=== PATIENT | female | born 1965 | race Caucasian/White ===

== ENCOUNTER 2018-05-01 21:29 | Emergency (ER) | payer MEDICAID ==
[~2018-05-01] VITALS: Ht 162.6 cm; Wt 88.0 kg
[~2018-05-01 21:29] MED LIST: CLON-528 PO; IBUP-1574 PO; LANS15CA10 PO; ONDA4TAB12 PO; ONDA4TAB6 PO; PHE12.5T PO; POLY255P19 PO; ZOF4T PO
[2018-05-01] MEDS ORDERED: ondansetron 4mg rapidly disintigrating tab PO STA (22:08)
[2018-05-01] MEDS ORDERED: ONDA8TAB6 PO (23:18)
[2018-05-01] MEDS ORDERED: ondansetron 4mg rapidly disintigrating tab PO ONE (23:20)
[2018-05-01 23:27] VITALS: BP 103/60
== END 2018-05-01 23:28 | disposition home or self-care (01) ==
LOC: ER 21:30
DX: K52.9 Noninfective gastroenteritis and colitis, unspecified (principal); G43.909 Migraine, unspecified, not intractable, without status migrainosus; Z90.49 Acquired absence of other specified parts of digestive tract; Z90.710 Acquired absence of both cervix and uterus; Z90.89 Acquired absence of other organs; Z88.0 Allergy status to penicillin; Z88.1 Allergy status to other antibiotic agents; Z88.8 Allergy status to other drugs, medicaments and biological substances; Z79.899 Other long term (current) drug therapy; Z56.0 Unemployment, unspecified
CPT/HCPCS: 99283

== ENCOUNTER → 2018-06-27 | Emergency (ER) | payer MEDICAID ==
[~2018-06-27] VITALS: Ht 162.6 cm; Wt 90.0 kg
[~2018-06-27] MED LIST changes: +CEPH-572 PO; +ONDA8TAB6 PO; +PHEN-716 PO
[2018-06-27 10:28] VITALS: BP 105/66
[2018-06-27 10:46] LABS: ALANINE AMINOTRANSFERASE 29 U/L (12-78); ALBUMIN 3.6 G/DL (3.4-5.0); ALKALINE PHOSPHATASE 73 IU/L (46-116); ANION GAP 5 (8-16); ASPARTATE AMINO TRANSFERASE 15 U/L (10-37); BILIRUBIN,TOTAL 0.5 MG/DL (0.1-1.0); BLOOD UREA NITROGEN 20 MG/DL (7-18); BUN/CREATININE RATIO 25.3 (6.6-38.0); CHLORIDE 103 MMOL/L (99-107); CREATININE 0.79 MG/DL (0.40-0.90); GLUCOSE 87 MG/DL (70-104); POTASSIUM 4.6 MMOL/L (3.5-5.1); SODIUM 136 MMOL/L (135-145); TOTAL CARBON DIOXIDE 27.7 MMOL/L (24-32); TOTAL PROTEIN 7.3 G/DL (6.4-8.2); eGFR 76 ML/MIN
[2018-06-27 10:52] LABS: CLARITY,URINE CLEAR (Clear); COLOR,URINE YELLOW (Yellow); GLUCOSE, URINE NEGATIVE (Neg); KETONES,URINE NEGATIVE (Neg); LEUKOCYTE ESTERASE ,URINE NEGATIVE (Neg); NITRITES, URINE NEGATIVE (Neg); OCCULT BLOOD,URINE TRACE-INTACT (Neg); PH,URINE 5.5 (4.8-8.0); PROTEIN,URINE NEGATIVE (Neg); URINE HCG NEGATIVE (NEG); UROBILINOGEN,URINE 0.2 E.U/dL (0.2-1.0)
[2018-06-27 10:57] LABS: UA COLLECTION TYPE CLN CATCH MIDSTREAM
[2018-06-27 10:58] LABS: BACTERIA,URINE FEW /HPF (Neg); MUCUS STRANDS NONE SEEN /LPF (Neg); RBC,URINE NONE SEEN /HPF (0-2); SQUAMOUS EPITHELIAL CELL,UR MODERATE /LPF (FEW); WBC,URINE NONE SEEN /HPF (0-4)
== END | disposition home or self-care (01) ==
LOC: ER 08:37
DX: R10.30 Lower abdominal pain, unspecified (principal); G43.909 Migraine, unspecified, not intractable, without status migrainosus; Z90.710 Acquired absence of both cervix and uterus; Z98.890 Other specified postprocedural states; Z90.49 Acquired absence of other specified parts of digestive tract; Z56.0 Unemployment, unspecified; Z86.19 Personal history of other infectious and parasitic diseases; Z88.0 Allergy status to penicillin; Z88.1 Allergy status to other antibiotic agents; Z88.5 Allergy status to narcotic agent; Z88.8 Allergy status to other drugs, medicaments and biological substances; Z79.899 Other long term (current) drug therapy
CPT/HCPCS: 36415; 80053; 81001; 81025; 99283

== ENCOUNTER 2018-12-30 19:53 | Emergency (ER) | payer MEDICAID, OTHER ==
[~2018-12-30] VITALS: Ht 162.6 cm; Wt 91.5 kg
[~2018-12-30 19:53] MED LIST changes: -CEPH-572 PO; +CEPH500C5 PO; -PHE12.5T PO; -PHEN-716 PO; +PHEN-786 PO; +PROM12.512 PO
[2018-12-30 20:47] LABS: URINE HCG NEGATIVE (NEG)
[2018-12-30 20:48] LABS: CLARITY,URINE CLEAR (Clear); COLOR,URINE YELLOW (Yellow); GLUCOSE, URINE NEGATIVE (Neg); KETONES,URINE NEGATIVE (Neg); LEUKOCYTE ESTERASE ,URINE NEGATIVE (Neg); NITRITES, URINE NEGATIVE (Neg); OCCULT BLOOD,URINE TRACE-LYSED (Neg); PROTEIN,URINE NEGATIVE (Neg); UROBILINOGEN,URINE 0.2 E.U/dL (0.2-1.0)
[2018-12-30 20:51] LABS: UA COLLECTION TYPE CLN CATCH MIDSTREAM
[2018-12-30 20:54] LABS: BACTERIA,URINE FEW /HPF (Neg); MUCUS STRANDS NONE SEEN /LPF (Neg); RBC,URINE NONE SEEN /HPF (0-2); SQUAMOUS EPITHELIAL CELL,UR FEW /LPF (FEW); WBC,URINE NONE SEEN /HPF (0-4)
--- NOTE | 2018-12-30 20:54 | NUR ---
PT. REFUSED TO HAVE BLOOD DRAWN... PLASMA TABLE OPERATOR STUCK HER FOR BLOOD DRAW AND SHE STARTED YELLING "TAKE IT OUT, TAKE IT OUT, TAKE IT OUT, ". PT. WAS PLACED BACK IN THE LOBBY FROM ROOM 18
[2018-12-30] MEDS ORDERED: pantoprazole 40 MG vial IV ONE (22:40)
[2018-12-30] MEDS ORDERED: ondansetron/PF 4mg/2ml inj IV ONE (22:40)
[2018-12-30 22:55] LABS: BASOPHILS % (AUTO) 0.6 % (0-1); EOSINOPHILS % (AUTO) 0.6 % (0-6); HEMOGLOBIN 12.8 g/dl (12.0-16.0); LYMPHOCYTES # (AUTO) 3.1 X10'3 (1.1-4.8); LYMPHOCYTES % (AUTO) 41.2 % (21-51); MEAN CORPUSCULAR HEMOGLOBIN 30.8 PG (27.0-31.0); MEAN CORPUSCULAR HGB CONC 33.6 g/dL (33.0-36.5); MEAN CORPUSCULAR VOLUME 91.5 FL (78-98); MONOCYTES # (AUTO) 0.7 X10'3 (0-0.9); MONOCYTES % (AUTO) 9.5 % (2-12); NEUTROPHILS # (AUTO) 3.6 X10'3 (1.8-7.7); NEUTROPHILS % (AUTO) 48.1 % (42-75); PLATELET COUNT 272 X10'3 (140-440); RED BLOOD COUNT 4.15 X10'6 (4.20-5.60); RED CELL DISTRIBUTION WIDTH 12.9 % (11.5-14.5); WHITE BLOOD COUNT 7.5 X10'3 (4.5-11.0)
[2018-12-30 23:10] LABS: ALANINE AMINOTRANSFERASE 29 U/L (12-78); ALBUMIN 3.8 G/DL (3.4-5.0); ALKALINE PHOSPHATASE 94 IU/L (46-116); ANION GAP 9 (8-16); ASPARTATE AMINO TRANSFERASE 18 U/L (10-37); BILIRUBIN,TOTAL 0.2 MG/DL (0.1-1.0); BLOOD UREA NITROGEN 13 MG/DL (7-18); BUN/CREATININE RATIO 16.7 (6.6-38.0); CALCIUM 8.9 MG/DL (8.5-10.1); CHLORIDE 107 MMOL/L (99-107); CREATININE 0.78 MG/DL (0.40-0.90); GLUCOSE 105 MG/DL (70-104); LIPASE 84 U/L (73-393); POTASSIUM 4.6 MMOL/L (3.5-5.1); SODIUM 142 MMOL/L (135-145); TOTAL CARBON DIOXIDE 26.3 MMOL/L (24-32); TOTAL PROTEIN 7.6 G/DL (6.4-8.2); eGFR 77 ML/MIN
[2018-12-31 00:27] VITALS: BP 110/70
[2019-01-01] MEDS ORDERED: ONDA8TAB6 PO (12:08)
[2019-01-01] MEDS ORDERED: LORA1TAB PO (12:08)
[2019-01-01] MEDS ORDERED: PANT20TA3 PO (12:08)
== END 2018-12-31 01:54 | disposition home or self-care (01) ==
LOC: ER 19:53
DX: K52.9 Noninfective gastroenteritis and colitis, unspecified (principal); R42 Dizziness and giddiness; G43.909 Migraine, unspecified, not intractable, without status migrainosus; F41.9 Anxiety disorder, unspecified; Z90.49 Acquired absence of other specified parts of digestive tract; Z90.710 Acquired absence of both cervix and uterus; Z90.89 Acquired absence of other organs; Z79.899 Other long term (current) drug therapy; Z88.0 Allergy status to penicillin; Z88.1 Allergy status to other antibiotic agents; Z88.5 Allergy status to narcotic agent; Z56.0 Unemployment, unspecified
CPT/HCPCS: 36415; 80053; 81001; 81025; 83690; 85025; 85610; 96374; 96375; 99283; C9113; J2405

== ENCOUNTER 2019-01-01 09:01 | Emergency (ER) | payer MEDICAID, OTHER ==
[~2019-01-01] VITALS: Ht 162.6 cm; Wt 89.2 kg
[2019-01-01] MEDS ORDERED: ondansetron/PF 4mg/2ml inj IV ONE (09:20)
[2019-01-01] MEDS ORDERED: famotidine/PF 10 mg/ml inj IV ONE (09:20)
[2019-01-01] MEDS ORDERED: normal saline 1000ML IV soln IV ONE (09:20)
[2019-01-01] MEDS ORDERED: LORazepam 2 mg/ml vial IV ONE (09:20)
--- NOTE | 2019-01-01 09:50 | NUR ---
Pt out to CT
[2019-01-01 10:08] LABS: BASOPHILS % (AUTO) 0.6 % (0-1); EOSINOPHILS # (AUTO) 0.1 X10'3 (0-0.9); LYMPHOCYTES # (AUTO) 2.6 X10'3 (1.1-4.8); MEAN PLATELET VOLUME 8.1 FL (7.4-10.4); MONOCYTES # (AUTO) 0.4 X10'3 (0-0.9)
[2019-01-01 10:10] LABS: EOSINOPHILS % (AUTO) 0.8 % (0-6); HEMATOCRIT 42.2 % (35.0-45.0); HEMOGLOBIN 14.5 g/dl (12.0-16.0); LYMPHOCYTES % (AUTO) 39.4 % (21-51); MEAN CORPUSCULAR HEMOGLOBIN 31.3 PG (27.0-31.0); MEAN CORPUSCULAR HGB CONC 34.4 g/dL (33.0-36.5); MONOCYTES % (AUTO) 6.7 % (2-12); NEUTROPHILS # (AUTO) 3.5 X10'3 (1.8-7.7); NEUTROPHILS % (AUTO) 52.5 % (42-75); PLATELET COUNT 256 X10'3 (140-440); RED BLOOD COUNT 4.64 X10'6 (4.20-5.60); RED CELL DISTRIBUTION WIDTH 13.1 % (11.5-14.5); WHITE BLOOD COUNT 6.6 X10'3 (4.5-11.0)
[2019-01-01 10:32] LABS: ALANINE AMINOTRANSFERASE 35 U/L (12-78); ALBUMIN 4.2 G/DL (3.4-5.0); ALBUMIN/GLOBULIN RATIO 0.9 (1.1-1.5); ALKALINE PHOSPHATASE 106 IU/L (46-116); ANION GAP 8 (8-16); ASPARTATE AMINO TRANSFERASE 19 U/L (10-37); BILIRUBIN,TOTAL 0.4 MG/DL (0.1-1.0); BLOOD UREA NITROGEN 13 MG/DL (7-18); BUN/CREATININE RATIO 14.1 (6.6-38.0); CALCIUM 9.4 MG/DL (8.5-10.1); CHLORIDE 104 MMOL/L (99-107); CREATININE 0.92 MG/DL (0.40-0.90); GLUCOSE 103 MG/DL (70-104); POTASSIUM 4.1 MMOL/L (3.5-5.1); SODIUM 141 MMOL/L (135-145); TOTAL CARBON DIOXIDE 29.1 MMOL/L (24-32); TOTAL PROTEIN 8.8 G/DL (6.4-8.2); eGFR 63 ML/MIN
[2019-01-01] MEDS ORDERED: ketorolac trometh. 30mg/ml inj. IV ONE (10:40)
[2019-01-01] MEDS ORDERED: pantoprazole 40 MG vial IV ONE (12:05)
[2019-01-01] MEDS ORDERED: ONDA8TAB6 PO (12:08)
[2019-01-01] MEDS ORDERED: LORA1TAB PO (12:08)
[2019-01-01] MEDS ORDERED: PANT20TA3 PO (12:08)
[2019-01-01 12:37] LABS: CLARITY,URINE CLEAR (Clear); COLOR,URINE YELLOW (Yellow); GLUCOSE, URINE NEGATIVE (Neg); KETONES,URINE NEGATIVE (Neg); LEUKOCYTE ESTERASE ,URINE NEGATIVE (Neg); NITRITES, URINE NEGATIVE (Neg); OCCULT BLOOD,URINE TRACE-LYSED (Neg); PROTEIN,URINE NEGATIVE (Neg); UROBILINOGEN,URINE 0.2 E.U/dL (0.2-1.0)
--- NOTE | 2019-01-01 12:37 | NUR ---
RELIEVING RN FOR LUNCH, PT IS SLEEPING, RESP EVEN AND UNLABORED, SKIN P/W/D, EASILY AROUSEABLE, NS BOLUS INFUSING W/O. MEDICATED PER MD ORDER
[2019-01-01 12:44] LABS: UA COLLECTION TYPE CLN CATCH MIDSTREAM
[2019-01-01 12:50] LABS: WBC,URINE 0-4 /HPF (0-4)
[2019-01-01 12:51] VITALS: BP 125/53
[2019-01-01 12:51] LABS: BACTERIA,URINE FEW /HPF (Neg); RBC,URINE 0-2 /HPF (0-2); SQUAMOUS EPITHELIAL CELL,UR FEW /LPF (FEW)
== END 2019-01-01 12:53 | disposition home or self-care (01) ==
LOC: ER 09:02
DX: R10.10 Upper abdominal pain, unspecified (principal); R11.2 Nausea with vomiting, unspecified; G43.909 Migraine, unspecified, not intractable, without status migrainosus; Z56.0 Unemployment, unspecified; Z90.49 Acquired absence of other specified parts of digestive tract; Z90.710 Acquired absence of both cervix and uterus; Z88.0 Allergy status to penicillin; Z88.3 Allergy status to other anti-infective agents; Z88.5 Allergy status to narcotic agent; Z79.899 Other long term (current) drug therapy
CPT/HCPCS: 36415; 71045; 74176; 80053; 81001; 83605; 83735; 84145; 85025; 87040; 93005; 96361; 96374; 96375; 99284; C9113; J1885; J2060; J2405; J3490; J7030

== ENCOUNTER 2019-01-03 19:56 | Emergency (ER) | payer MEDICAID ==
[~2019-01-03] VITALS: Ht 162.6 cm; Wt 83.1 kg
[~2019-01-03 19:56] MED LIST changes: +LORA1TAB PO; +PANT20TA3 PO
[2019-01-03] MEDS ORDERED: normal saline 1000ML IV soln IVB ONE (23:10)
[2019-01-03] MEDS ORDERED: magnesium citrate 296ml oral solution PO ONE (23:10)
[2019-01-03] MEDS ORDERED: bisacodyl 10mg suppository rectal RC ONE (23:10)
[2019-01-03] MEDS ORDERED: ondansetron/PF 4mg/2ml inj IV ONE (23:10)
[2019-01-03 23:57] LABS: BASOPHILS % (AUTO) 0.4 % (0-1); EOSINOPHILS % (AUTO) 0.6 % (0-6); HEMATOCRIT 40.3 % (35.0-45.0); HEMOGLOBIN 13.5 g/dl (12.0-16.0); LYMPHOCYTES # (AUTO) 3.2 X10'3 (1.1-4.8); LYMPHOCYTES % (AUTO) 39.3 % (21-51); MEAN CORPUSCULAR HEMOGLOBIN 30.3 PG (27.0-31.0); MEAN CORPUSCULAR HGB CONC 33.6 g/dL (33.0-36.5); MEAN CORPUSCULAR VOLUME 90.5 FL (78-98); MEAN PLATELET VOLUME 7.6 FL (7.4-10.4); MONOCYTES # (AUTO) 0.4 X10'3 (0-0.9); MONOCYTES % (AUTO) 5.3 % (2-12); NEUTROPHILS # (AUTO) 4.4 X10'3 (1.8-7.7); NEUTROPHILS % (AUTO) 54.4 % (42-75); PLATELET COUNT 277 X10'3 (140-440); RED BLOOD COUNT 4.46 X10'6 (4.20-5.60); WHITE BLOOD COUNT 8.2 X10'3 (4.5-11.0)
[2019-01-04 00:10] LABS: ALANINE AMINOTRANSFERASE 25 U/L (12-78); ALBUMIN 3.8 G/DL (3.4-5.0); ALBUMIN/GLOBULIN RATIO 0.9 (1.1-1.5); ALKALINE PHOSPHATASE 89 IU/L (46-116); ANION GAP 11 (8-16); ASPARTATE AMINO TRANSFERASE 16 U/L (10-37); BILIRUBIN,TOTAL 0.3 MG/DL (0.1-1.0); BLOOD UREA NITROGEN 13 MG/DL (7-18); BUN/CREATININE RATIO 15.3 (6.6-38.0); CALCIUM 9.9 MG/DL (8.5-10.1); CHLORIDE 104 MMOL/L (99-107); CREATININE 0.85 MG/DL (0.40-0.90); GLUCOSE 98 MG/DL (70-104); LIPASE 89 U/L (73-393); POTASSIUM 4.6 MMOL/L (3.5-5.1); SODIUM 140 MMOL/L (135-145); TOTAL CARBON DIOXIDE 25.5 MMOL/L (24-32); TOTAL PROTEIN 8.1 G/DL (6.4-8.2); eGFR 69 ML/MIN
--- NOTE | 2019-01-04 00:38 | NUR ---
dr ramirez to perform digital exam to check pt stool impaction. poc updated
[2019-01-04 03:35] VITALS: BP 122/68
== END 2019-01-04 02:50 | disposition home or self-care (01) ==
LOC: ER 19:56
DX: K59.00 Constipation, unspecified (principal); R14.0 Abdominal distension (gaseous); R11.2 Nausea with vomiting, unspecified; R42 Dizziness and giddiness; R10.9 Unspecified abdominal pain; G43.909 Migraine, unspecified, not intractable, without status migrainosus; F41.9 Anxiety disorder, unspecified; Z88.0 Allergy status to penicillin; Z88.1 Allergy status to other antibiotic agents; Z88.6 Allergy status to analgesic agent; Z79.899 Other long term (current) drug therapy; Z79.2 Long term (current) use of antibiotics; Z79.1 Long term (current) use of non-steroidal anti-inflammatories (NSAID); Z87.19 Personal history of other diseases of the digestive system; Z87.440 Personal history of urinary (tract) infections; Z90.49 Acquired absence of other specified parts of digestive tract; Z90.710 Acquired absence of both cervix and uterus; Z90.89 Acquired absence of other organs; Z56.0 Unemployment, unspecified; Z86.19 Personal history of other infectious and parasitic diseases
CPT/HCPCS: 36415; 74018; 80053; 83690; 85025; 96361; 96374; 99284; J2405; J7030

== ENCOUNTER 2019-01-11 17:33 | Emergency (ER) | payer MEDICAID, OTHER ==
[~2019-01-11] VITALS: Ht 162.6 cm; Wt 89.1 kg
[2019-01-11 18:49] LABS: BASOPHILS # (AUTO) 0.1 X10'3 (0-0.2); BASOPHILS % (AUTO) 0.7 % (0-1); EOSINOPHILS # (AUTO) 0.1 X10'3 (0-0.9); EOSINOPHILS % (AUTO) 0.9 % (0-6); HEMATOCRIT 40.4 % (35.0-45.0); HEMOGLOBIN 13.7 g/dl (12.0-16.0); LYMPHOCYTES # (AUTO) 3.8 X10'3 (1.1-4.8); LYMPHOCYTES % (AUTO) 39.6 % (21-51); MEAN CORPUSCULAR HEMOGLOBIN 30.7 PG (27.0-31.0); MEAN CORPUSCULAR VOLUME 90.4 FL (78-98); MEAN PLATELET VOLUME 8.1 FL (7.4-10.4); MONOCYTES # (AUTO) 0.6 X10'3 (0-0.9); MONOCYTES % (AUTO) 6.4 % (2-12); NEUTROPHILS # (AUTO) 5.1 X10'3 (1.8-7.7); NEUTROPHILS % (AUTO) 52.4 % (42-75); PLATELET COUNT 325 X10'3 (140-440); RED BLOOD COUNT 4.47 X10'6 (4.20-5.60); WHITE BLOOD COUNT 9.7 X10'3 (4.5-11.0)
[2019-01-11 19:00] LABS: ALANINE AMINOTRANSFERASE 29 U/L (12-78); ALBUMIN 3.9 G/DL (3.4-5.0); ALBUMIN/GLOBULIN RATIO 0.9 (1.1-1.5); ALKALINE PHOSPHATASE 94 IU/L (46-116); ANION GAP 8 (8-16); ASPARTATE AMINO TRANSFERASE 20 U/L (10-37); BILIRUBIN,TOTAL 0.2 MG/DL (0.1-1.0); BLOOD UREA NITROGEN 13 MG/DL (7-18); BUN/CREATININE RATIO 17.1 (6.6-38.0); CALCIUM 9.4 MG/DL (8.5-10.1); CHLORIDE 105 MMOL/L (99-107); CREATININE 0.76 MG/DL (0.40-0.90); GLUCOSE 107 MG/DL (70-104); LIPASE 141 U/L (73-393); POTASSIUM 4.1 MMOL/L (3.5-5.1); SODIUM 139 MMOL/L (135-145); TOTAL CARBON DIOXIDE 26.3 MMOL/L (24-32); TOTAL PROTEIN 8.2 G/DL (6.4-8.2); eGFR 79 ML/MIN
[2019-01-11] MEDS ORDERED: ondansetron 4mg rapidly disintigrating tab PO ONE (19:20)
[2019-01-11 19:36] LABS: URINE HCG NEGATIVE (NEG)
[2019-01-11 19:41] LABS: CLARITY,URINE CLEAR (Clear); COLOR,URINE YELLOW (Yellow); GLUCOSE, URINE NEGATIVE (Neg); KETONES,URINE NEGATIVE (Neg); LEUKOCYTE ESTERASE ,URINE NEGATIVE (Neg); NITRITES, URINE NEGATIVE (Neg); OCCULT BLOOD,URINE TRACE-INTACT (Neg); PROTEIN,URINE NEGATIVE (Neg); UROBILINOGEN,URINE 0.2 E.U/dL (0.2-1.0)
[2019-01-11 19:48] LABS: UA COLLECTION TYPE CLN CATCH MIDSTREAM
[2019-01-11 19:49] LABS: RBC,URINE 0-2 /HPF (0-2); SQUAMOUS EPITHELIAL CELL,UR FEW /LPF (FEW); WBC,URINE 0-4 /HPF (0-4)
[2019-01-11 19:50] LABS: BACTERIA,URINE FEW /HPF (Neg)
[2019-01-11] MEDS ORDERED: ondansetron/PF 4mg/2ml inj IV ONE (20:10)
[2019-01-11] MEDS ORDERED: normal saline 1000ML IV soln IVB ONE (20:10)
[2019-01-11] MEDS: diatr meglu/diatrizoate 30ml oral sol.-(3 dose) bottle PO SCH ×3 (20:46→21:56)
[2019-01-11 20:48] VITALS: BP 115/78
--- NOTE | 2019-01-11 21:10 | NUR ---
Break RN; Checked on patient, warm blanket provided. No other needs at this time.
[2019-01-11] MEDS ORDERED: iohexol 300mg/ml 100ml inj. ONE (21:46)
[2019-01-11] MEDS ORDERED: ONDA4TAB6 PO (23:25)
== END 2019-01-11 23:45 | disposition home or self-care (01) ==
LOC: ER 17:34
DX: N83.202 Unspecified ovarian cyst, left side (principal); R11.2 Nausea with vomiting, unspecified; G43.909 Migraine, unspecified, not intractable, without status migrainosus; F41.9 Anxiety disorder, unspecified; Z90.49 Acquired absence of other specified parts of digestive tract; Z90.710 Acquired absence of both cervix and uterus; Z98.890 Other specified postprocedural states; Z56.0 Unemployment, unspecified; Z88.0 Allergy status to penicillin; Z88.1 Allergy status to other antibiotic agents; Z88.8 Allergy status to other drugs, medicaments and biological substances; Z79.2 Long term (current) use of antibiotics; Z79.899 Other long term (current) drug therapy
CPT/HCPCS: 36415; 74177; 80053; 81001; 81025; 83605; 83690; 85025; 85610; 96360; 96361; 99284; J2405; J7030; Q9963; Q9967

== ENCOUNTER 2019-01-14 11:01 | Emergency (ER) | payer MEDICAID, OTHER ==
[~2019-01-14] VITALS: Ht 167.6 cm; Wt 89.0 kg
[2019-01-14] MEDS ORDERED: mag hydrox/Alum hydrox/simeth 30ml oral suspension PO ONE (12:20)
[2019-01-14] MEDS ORDERED: sucralfate 1gm/10ml UD suspension PO ONE (12:20)
[2019-01-14] MEDS: famotidine 20mg tablet PO ONE ×2 (12:41→12:44)
--- NOTE | 2019-01-14 12:45 | NUR ---
ATTEMPTED TO START IV WITHOUT SUCCESS. MEDS ARE ORDERED ORALLY. LAB DRAW PERFORMED PER ENVIRONMENTAL COMMUNICATIONS SPECIALIST. DR. TOLBERT NOTIFIED OF DIFFICULTY WITH UNSUCCESSFUL IV START.
[2019-01-14 12:48] VITALS: BP 107/75
[2019-01-14 12:53] LABS: BASOPHILS % (AUTO) 0.4 % (0-1); EOSINOPHILS % (AUTO) 0.4 % (0-6); HEMATOCRIT 39.7 % (35.0-45.0); HEMOGLOBIN 13.3 g/dl (12.0-16.0); LYMPHOCYTES # (AUTO) 2.6 X10'3 (1.1-4.8); LYMPHOCYTES % (AUTO) 28.1 % (21-51); MEAN CORPUSCULAR HEMOGLOBIN 30.5 PG (27.0-31.0); MEAN CORPUSCULAR HGB CONC 33.6 g/dL (33.0-36.5); MEAN CORPUSCULAR VOLUME 90.9 FL (78-98); MEAN PLATELET VOLUME 7.8 FL (7.4-10.4); MONOCYTES # (AUTO) 0.5 X10'3 (0-0.9); NEUTROPHILS # (AUTO) 6.1 X10'3 (1.8-7.7); NEUTROPHILS % (AUTO) 66.1 % (42-75); PLATELET COUNT 324 X10'3 (140-440); RED BLOOD COUNT 4.36 X10'6 (4.20-5.60); RED CELL DISTRIBUTION WIDTH 13.2 % (11.5-14.5); WHITE BLOOD COUNT 9.3 X10'3 (4.5-11.0)
[2019-01-14 13:08] LABS: ALANINE AMINOTRANSFERASE 25 U/L (12-78); ALBUMIN 3.8 G/DL (3.4-5.0); ALBUMIN/GLOBULIN RATIO 0.9 (1.1-1.5); ALKALINE PHOSPHATASE 96 IU/L (46-116); ANION GAP 9 (8-16); ASPARTATE AMINO TRANSFERASE 14 U/L (10-37); BILIRUBIN,TOTAL 0.3 MG/DL (0.1-1.0); BLOOD UREA NITROGEN 12 MG/DL (7-18); BUN/CREATININE RATIO 13.8 (6.6-38.0); CALCIUM 9.6 MG/DL (8.5-10.1); CHLORIDE 106 MMOL/L (99-107); CREATININE 0.87 MG/DL (0.40-0.90); GLUCOSE 102 MG/DL (70-104); LIPASE 91 U/L (73-393); POTASSIUM 4.5 MMOL/L (3.5-5.1); SODIUM 141 MMOL/L (135-145); TOTAL CARBON DIOXIDE 26.3 MMOL/L (24-32); TOTAL PROTEIN 8.1 G/DL (6.4-8.2); eGFR 68 ML/MIN
[2019-01-14] MEDS ORDERED: SUCR1TAB34 PO (13:32)
[2019-01-14] MEDS ORDERED: NO HOME MEDS (23:47)
[2019-01-15] MEDS ORDERED: PANT-47 PO (10:40)
== END 2019-01-14 13:42 | disposition home or self-care (01) ==
LOC: ER 11:02
DX: G89.29 Other chronic pain (principal); R10.13 Epigastric pain; G43.909 Migraine, unspecified, not intractable, without status migrainosus; F41.9 Anxiety disorder, unspecified; Z87.442 Personal history of urinary calculi; Z90.49 Acquired absence of other specified parts of digestive tract; Z90.710 Acquired absence of both cervix and uterus; Z98.890 Other specified postprocedural states; Z56.0 Unemployment, unspecified; Z88.2 Allergy status to sulfonamides; Z88.1 Allergy status to other antibiotic agents; Z88.8 Allergy status to other drugs, medicaments and biological substances; Z79.2 Long term (current) use of antibiotics; Z79.899 Other long term (current) drug therapy
CPT/HCPCS: 36415; 76700; 80053; 83690; 85025; 99284

== ENCOUNTER 2019-01-14 18:45 | Observation (INO) | payer MEDICAID, OTHER ==
[~2019-01-14] VITALS: Ht 162.6 cm; Wt 89.1 kg
[~2019-01-14 18:45] MED LIST changes: +SUCR1TAB34 PO
[2019-01-14 19:55] LABS: CLARITY,URINE CLEAR (Clear); COLOR,URINE YELLOW (Yellow); GLUCOSE, URINE NEGATIVE (Neg); KETONES,URINE NEGATIVE (Neg); LEUKOCYTE ESTERASE ,URINE NEGATIVE (Neg); NITRITES, URINE NEGATIVE (Neg); OCCULT BLOOD,URINE NEGATIVE (Neg); PH,URINE 6.5 (4.8-8.0); PROTEIN,URINE NEGATIVE (Neg); UROBILINOGEN,URINE 0.2 E.U/dL (0.2-1.0)
[2019-01-14 19:56] LABS: URINE HCG NEGATIVE (NEG)
[2019-01-14 19:57] LABS: UA COLLECTION TYPE CLN CATCH MIDSTREAM
[2019-01-14] MEDS ORDERED: normal saline 1000ML IV soln IVB ONE (20:05)
[2019-01-14] MEDS ORDERED: LORazepam 2 mg/ml vial IV ONE ×3 (20:05→22:50)
[2019-01-14] MEDS ORDERED: proCHLORperazine 10 MG/2 ml inj IV ONE (20:05)
--- NOTE | 2019-01-14 20:15 | NUR ---
Ativan 0.5mg order drawn up with balance wasted w/ Cherelle rn. Pt refused ordered dose which was non-administered and wasted in room. Pt also refused compazine which was returned to [facility]. A duplicate ativan order was non-administered as well. Primary RN Cherelle aware.
--- NOTE | 2019-01-14 20:15 | NUR ---
pt refused lab draw. pt refused me from starting iv went to charge nurse jorge who said she will attmept her start if pt allows
[2019-01-14] MEDS ORDERED: haloperidol lactate 5mg/ml inj IM ONE (20:20)
--- NOTE | 2019-01-14 20:22 | NUR ---
pt wanted im haldol to the right buttock vs the right deltoid . pt given haldol 5mg im to right buttock.
--- NOTE | 2019-01-14 20:30 | NUR ---
pt refused compazine for nausea . asked for zofran to treat . pt also states that she is hypersensitive to aall medication and prefers half doses
--- NOTE | 2019-01-14 21:24 | NUR ---
ativan pulled and wasted, then give to primary samuel dwyer for administration. pt refused ativan, o.5mg which was then wasted and witnessed with reymundo rn. pt also refusing compazine indicating "zofran works better." Seeking antiemetic change with [facility] yanet now. primary rn reymundo aware of medication administration status.
[2019-01-14] MEDS ORDERED: pantoprazole 40 MG vial IV ONE (21:25)
[2019-01-14] MEDS ORDERED: mag hydrox/Alum hydrox/simeth 30ml oral suspension PO PRN (21:25)
[2019-01-14] MEDS ORDERED: ondansetron/PF 4mg/2ml inj IV PRN (21:25)
[2019-01-14] MEDS ORDERED: metoclopramide 5 mg/ml inj IV PRN (21:25)
[2019-01-14] MEDS ORDERED: magnesium hydroxide 30ml (MOM) UD suspension PO PRN (21:25)
[2019-01-14] MEDS ORDERED: acetaminophen 325mg tablet PO PRN ×2 (21:25)
[2019-01-14 21:26] LABS: BASOPHILS % (AUTO) 0.4 % (0-1); EOSINOPHILS # (AUTO) 0.1 X10'3 (0-0.9); EOSINOPHILS % (AUTO) 0.6 % (0-6); HEMOGLOBIN 14.2 g/dl (12.0-16.0); LYMPHOCYTES # (AUTO) 3.2 X10'3 (1.1-4.8); LYMPHOCYTES % (AUTO) 31.8 % (21-51); MEAN CORPUSCULAR HEMOGLOBIN 30.5 PG (27.0-31.0); MEAN CORPUSCULAR HGB CONC 33.8 g/dL (33.0-36.5); MEAN CORPUSCULAR VOLUME 90.2 FL (78-98); MEAN PLATELET VOLUME 8.2 FL (7.4-10.4); MONOCYTES # (AUTO) 0.6 X10'3 (0-0.9); MONOCYTES % (AUTO) 5.8 % (2-12); NEUTROPHILS # (AUTO) 6.2 X10'3 (1.8-7.7); NEUTROPHILS % (AUTO) 61.4 % (42-75); PLATELET COUNT 350 X10'3 (140-440); RED BLOOD COUNT 4.65 X10'6 (4.20-5.60); WHITE BLOOD COUNT 10.2 X10'3 (4.5-11.0)
--- NOTE | 2019-01-14 21:27 | NUR ---
New order for Zofran obtained from [facility] y[facility].
[2019-01-14] MEDS ORDERED: ondansetron/PF 4mg/2ml inj IV ONE (21:30)
[2019-01-14 21:31] LABS: ALANINE AMINOTRANSFERASE 28 U/L (12-78); ALBUMIN 4.2 G/DL (3.4-5.0); ALKALINE PHOSPHATASE 102 IU/L (46-116); ANION GAP 8 (8-16); ASPARTATE AMINO TRANSFERASE 15 U/L (10-37); BILIRUBIN,TOTAL 0.3 MG/DL (0.1-1.0); BLOOD UREA NITROGEN 15 MG/DL (7-18); BUN/CREATININE RATIO 15.5 (6.6-38.0); CALCIUM 9.8 MG/DL (8.5-10.1); CHLORIDE 105 MMOL/L (99-107); CREATININE 0.97 MG/DL (0.40-0.90); GLUCOSE 95 MG/DL (70-104); LIPASE 111 U/L (73-393); POTASSIUM 4.5 MMOL/L (3.5-5.1); SODIUM 141 MMOL/L (135-145); TOTAL PROTEIN 8.6 G/DL (6.4-8.2); eGFR 60 ML/MIN
--- NOTE | 2019-01-14 21:49 | NUR ---
pt up out of bed to bathroom
[2019-01-14] MEDS: normal saline 1000ml 1,000 ML IV SCH (22:10)
[2019-01-14] MEDS ORDERED: NO HOME MEDS (23:47)
[2019-01-15] VITALS (7 sets, daily range): BP systolic 96–123; BP diastolic 49–72
--- NOTE | 2019-01-15 06:20 | NUR ---
Patient in room ORTHO 4009. I have received report from Tiera Adamson and had the opportunity to ask questions and assume patient care.
--- NOTE | 2019-01-15 06:24 | NUR ---
Problems reprioritized. Patient report given, questions answered & plan of care reviewed with HOLLY Sharma.
[2019-01-15 06:40] LABS: BASOPHILS # (AUTO) 0.1 X10'3 (0-0.2); BASOPHILS % (AUTO) 0.8 % (0-1); EOSINOPHILS # (AUTO) 0.1 X10'3 (0-0.9); EOSINOPHILS % (AUTO) 0.6 % (0-6); HEMATOCRIT 38.9 % (35.0-45.0); HEMOGLOBIN 13.1 g/dl (12.0-16.0); LYMPHOCYTES # (AUTO) 3.2 X10'3 (1.1-4.8); LYMPHOCYTES % (AUTO) 40.4 % (21-51); MEAN CORPUSCULAR HEMOGLOBIN 30.8 PG (27.0-31.0); MEAN CORPUSCULAR HGB CONC 33.8 g/dL (33.0-36.5); MEAN PLATELET VOLUME 7.9 FL (7.4-10.4); MONOCYTES # (AUTO) 0.5 X10'3 (0-0.9); MONOCYTES % (AUTO) 5.9 % (2-12); NEUTROPHILS # (AUTO) 4.1 X10'3 (1.8-7.7); NEUTROPHILS % (AUTO) 52.3 % (42-75); PLATELET COUNT 300 X10'3 (140-440); RED BLOOD COUNT 4.27 X10'6 (4.20-5.60); RED CELL DISTRIBUTION WIDTH 13.2 % (11.5-14.5); WHITE BLOOD COUNT 7.8 X10'3 (4.5-11.0)
[2019-01-15 06:49] LABS: ALBUMIN 3.4 G/DL (3.4-5.0); ANION GAP 6 (8-16); BLOOD UREA NITROGEN 11 MG/DL (7-18); BUN/CREATININE RATIO 14.3 (6.6-38.0); CALCIUM 8.8 MG/DL (8.5-10.1); CHLORIDE 107 MMOL/L (99-107); CREATININE 0.77 MG/DL (0.40-0.90); GLUCOSE 91 MG/DL (70-104); POTASSIUM 4.3 MMOL/L (3.5-5.1); SODIUM 140 MMOL/L (135-145); TOTAL CARBON DIOXIDE 27.2 MMOL/L (24-32); eGFR 78 ML/MIN
[2019-01-15] MEDS ORDERED: fentaNYL/PF 50MCG/1 ML 2ML syringe ONE ×2 (08:44)
[2019-01-15] MEDS ORDERED: LIDOcaine Viscous 15ml cup ONE (08:45)
[2019-01-15] MEDS ORDERED: MIDAZolam 5mg/5ml vial ONE (08:45)
--- NOTE | 2019-01-15 09:40 | NUR ---
BACK FROM GI LAB, RECEIVED REPORT FROM KIRK BARRERA . PATIENT RESTING COMFORTABLY.
[2019-01-15] MEDS: normal saline 1000ml 1,000 ML IV SCH (10:01)
[2019-01-15] MEDS ORDERED: PANT-47 PO (10:40)
--- NOTE | 2019-01-15 13:18 | NUR ---
Reviewed discharge instructions with pt. Pt verbalized understanding. Pt is alert, oriented and does not have c/o pain at this time. All of pt's belongings were returned to pt. Rx was called in to [facility] in [facility]. Pt walked downstairs, accompanied by her daughter who will drive her home.
== END 2019-01-15 13:10 | disposition home or self-care (01) ==
LOC: ER 18:45 → ED HOLD 22:24 → ORTHO 4S 23:45
PROVIDERS: ADMIT Hospitalist; ATTEND Family Medicine
DX: K44.9 Diaphragmatic hernia without obstruction or gangrene (principal); K21.0 Gastro-esophageal reflux disease with esophagitis; K29.70 Gastritis, unspecified, without bleeding; R11.2 Nausea with vomiting, unspecified; G43.909 Migraine, unspecified, not intractable, without status migrainosus; F41.9 Anxiety disorder, unspecified; Z87.891 Personal history of nicotine dependence; Z87.442 Personal history of urinary calculi; Z87.11 Personal history of peptic ulcer disease; Z90.49 Acquired absence of other specified parts of digestive tract; Z90.710 Acquired absence of both cervix and uterus
CPT/HCPCS: 36415; 43239; 80048; 80053; 81003; 81025; 83690; 85025; 85610; 87081; 96361; 96374; 96375; 96376; 99284; C9113; G0378; J0780; J1630; J2060; J2250; J2405; J3010; J7030; J7040; 99152; A4620

== ENCOUNTER 2019-01-19 18:47 | Emergency (ER) | payer MEDICAID, OTHER ==
[~2019-01-19] VITALS: Ht 162.6 cm; Wt 90.0 kg
[~2019-01-19 18:47] MED LIST changes: -CEPH500C5 PO; -CLON-528 PO; -IBUP-1574 PO; -LANS15CA10 PO; -LORA1TAB PO; -ONDA4TAB12 PO; -ONDA4TAB6 PO; -ONDA8TAB6 PO; +PANT-47 PO; -PANT20TA3 PO; -PHEN-786 PO; -POLY255P19 PO; -PROM12.512 PO; -SUCR1TAB34 PO; -ZOF4T PO
[2019-01-19 19:29] LABS: BASOPHILS # (AUTO) 0.1 X10'3 (0-0.2); BASOPHILS % (AUTO) 0.9 % (0-1); EOSINOPHILS # (AUTO) 0.1 X10'3 (0-0.9); EOSINOPHILS % (AUTO) 0.7 % (0-6); HEMATOCRIT 38.3 % (35.0-45.0); HEMOGLOBIN 12.9 g/dl (12.0-16.0); MONOCYTES # (AUTO) 0.8 X10'3 (0-0.9); NEUTROPHILS # (AUTO) 6.7 X10'3 (1.8-7.7)
[2019-01-19 19:34] LABS: LYMPHOCYTES # (AUTO) 3.5 X10'3 (1.1-4.8); LYMPHOCYTES % (AUTO) 31.3 % (21-51); MEAN CORPUSCULAR HEMOGLOBIN 30.6 PG (27.0-31.0); MEAN CORPUSCULAR HGB CONC 33.7 g/dL (33.0-36.5); NEUTROPHILS % (AUTO) 60.1 % (42-75); RED BLOOD COUNT 4.21 X10'6 (4.20-5.60); RED CELL DISTRIBUTION WIDTH 13.3 % (11.5-14.5); WHITE BLOOD COUNT 11.2 X10'3 (4.5-11.0)
[2019-01-19] MEDS ORDERED: metoclopramide 5 mg/ml inj IV ONE (19:40)
[2019-01-19] MEDS ORDERED: normal saline 1000ML IV soln IVB ONE (19:40)
[2019-01-19] MEDS ORDERED: ondansetron/PF 4mg/2ml inj IV ONE (19:40)
[2019-01-19] MEDS ORDERED: pantoprazole 40 MG vial IV ONE (19:40)
[2019-01-19 19:42] LABS: ALANINE AMINOTRANSFERASE 26 U/L (12-78); ALBUMIN 3.6 G/DL (3.4-5.0); ALBUMIN/GLOBULIN RATIO 0.9 (1.1-1.5); ALKALINE PHOSPHATASE 90 IU/L (46-116); ANION GAP 9 (8-16); ASPARTATE AMINO TRANSFERASE 18 U/L (10-37); BILIRUBIN,TOTAL 0.3 MG/DL (0.1-1.0); BLOOD UREA NITROGEN 10 MG/DL (7-18); BUN/CREATININE RATIO 12.5 (6.6-38.0); CALCIUM 8.8 MG/DL (8.5-10.1); CHLORIDE 107 MMOL/L (99-107); GLUCOSE 98 MG/DL (70-104); POTASSIUM 4.2 MMOL/L (3.5-5.1); SODIUM 142 MMOL/L (135-145); TOTAL CARBON DIOXIDE 25.8 MMOL/L (24-32); TOTAL PROTEIN 7.7 G/DL (6.4-8.2); eGFR 74 ML/MIN
[2019-01-19 19:51] LABS: LIPASE 86 U/L (73-393)
[2019-01-19 19:57] LABS: CLARITY,URINE CLEAR (Clear); COLOR,URINE STRAW (Yellow); GLUCOSE, URINE NEGATIVE (Neg); KETONES,URINE NEGATIVE (Neg); LEUKOCYTE ESTERASE ,URINE NEGATIVE (Neg); NITRITES, URINE NEGATIVE (Neg); OCCULT BLOOD,URINE NEGATIVE (Neg); PROTEIN,URINE NEGATIVE (Neg); UROBILINOGEN,URINE 0.2 E.U/dL (0.2-1.0)
[2019-01-19 19:58] LABS: URINE HCG NEGATIVE (NEG)
[2019-01-19 20:06] LABS: UA COLLECTION TYPE CLN CATCH MIDSTREAM
[2019-01-19 20:34] LABS: MEAN PLATELET VOLUME 8.3 FL (7.4-10.4)
[2019-01-19 20:39] LABS: PLATELET COUNT 251 X10'3 (140-440)
--- NOTE | 2019-01-19 21:47 | NUR ---
pt went to bathroom to urinate ,back in bed,iv line connected back ,ptgetting iv fluid as per md orders.warm blanket provided to the pt and family member at bedside.
[2019-01-19 22:10] VITALS: BP 128/76
[2019-01-19 22:30] LABS: URINE AMPHETAMINE SCREEN NEGATIVE (Neg); URINE BARBITUATE SCREEN NEGATIVE (Neg); URINE BENZODIAZEPINES SCREEN NEGATIVE (Neg); URINE CANNABINOID SCREEN NEGATIVE (Neg); URINE COCAINE SCREEN NEGATIVE (Neg); URINE METHADONE SCREEN NEGATIVE (Neg); URINE OPIATE SCREEN NEGATIVE (Neg); URINE PHENCYCLIDINE SCREEN NEGATIVE (Neg)
== END 2019-01-19 22:10 | disposition home or self-care (01) ==
LOC: ER 18:47
DX: R19.7 Diarrhea, unspecified (principal); G89.29 Other chronic pain; R10.84 Generalized abdominal pain; G43.909 Migraine, unspecified, not intractable, without status migrainosus; Z56.0 Unemployment, unspecified; Z90.49 Acquired absence of other specified parts of digestive tract; Z98.890 Other specified postprocedural states; Z90.710 Acquired absence of both cervix and uterus; Z88.0 Allergy status to penicillin; Z88.8 Allergy status to other drugs, medicaments and biological substances; Z88.1 Allergy status to other antibiotic agents; Z79.899 Other long term (current) drug therapy
CPT/HCPCS: 36415; 80053; 80305; 81003; 81025; 83690; 85025; 96361; 96374; 96375; 99284; C9113; J2405; J2765; J7030

== ENCOUNTER 2019-01-30 19:31 | Emergency (ER) | payer MEDICAID, OTHER ==
[~2019-01-30] VITALS: Ht 162.6 cm; Wt 90.7 kg
[2019-01-30 20:51] LABS: CLARITY,URINE CLEAR (Clear); COLOR,URINE YELLOW (Yellow); GLUCOSE, URINE NEGATIVE (Neg); KETONES,URINE NEGATIVE (Neg); LEUKOCYTE ESTERASE ,URINE NEGATIVE (Neg); NITRITES, URINE NEGATIVE (Neg); OCCULT BLOOD,URINE NEGATIVE (Neg); PROTEIN,URINE NEGATIVE (Neg); UROBILINOGEN,URINE 0.2 E.U/dL (0.2-1.0)
[2019-01-30 20:53] LABS: BASOPHILS # (AUTO) 0.1 X10'3 (0-0.2); BASOPHILS % (AUTO) 0.6 % (0-1); EOSINOPHILS # (AUTO) 0.1 X10'3 (0-0.9); EOSINOPHILS % (AUTO) 1.1 % (0-6); HEMATOCRIT 40.4 % (35.0-45.0); HEMOGLOBIN 13.8 g/dl (12.0-16.0); LYMPHOCYTES # (AUTO) 3.6 X10'3 (1.1-4.8); LYMPHOCYTES % (AUTO) 38.5 % (21-51); MEAN CORPUSCULAR HEMOGLOBIN 30.8 PG (27.0-31.0); MEAN CORPUSCULAR HGB CONC 34.2 g/dL (33.0-36.5); MEAN CORPUSCULAR VOLUME 89.9 FL (78-98); MEAN PLATELET VOLUME 7.8 FL (7.4-10.4); MONOCYTES # (AUTO) 0.6 X10'3 (0-0.9); MONOCYTES % (AUTO) 6.5 % (2-12); NEUTROPHILS % (AUTO) 53.3 % (42-75); PLATELET COUNT 305 X10'3 (140-440); RED CELL DISTRIBUTION WIDTH 12.9 % (11.5-14.5); WHITE BLOOD COUNT 9.4 X10'3 (4.5-11.0)
[2019-01-30 20:54] LABS: UA COLLECTION TYPE CLN CATCH MIDSTREAM
[2019-01-30 21:03] LABS: ALANINE AMINOTRANSFERASE 32 U/L (12-78); ALKALINE PHOSPHATASE 104 IU/L (46-116); ANION GAP 8 (8-16); ASPARTATE AMINO TRANSFERASE 16 U/L (10-37); BILIRUBIN,TOTAL 0.3 MG/DL (0.1-1.0); BLOOD UREA NITROGEN 15 MG/DL (7-18); BUN/CREATININE RATIO 18.3 (6.6-38.0); CALCIUM 9.7 MG/DL (8.5-10.1); CHLORIDE 104 MMOL/L (99-107); CREATININE 0.82 MG/DL (0.40-0.90); GLUCOSE 101 MG/DL (70-104); LIPASE 97 U/L (73-393); POTASSIUM 4.4 MMOL/L (3.5-5.1); SODIUM 140 MMOL/L (135-145); TOTAL CARBON DIOXIDE 28.3 MMOL/L (24-32); TOTAL PROTEIN 8.1 G/DL (6.4-8.2); eGFR 72 ML/MIN
--- NOTE | 2019-01-30 22:15 | NUR ---
VERIFIED MORPHINE DOSAGE WITH MARYJANE. MARYJANE SCHAFFER CHANGED DOSAGE TO 4MG IM INSTEAD OF 10MG IM. DOSE CHANGED ORDERED PER MD WESLEY
[2019-01-30] MEDS ORDERED: ketorolac trometh inj. 60 MG/2 ML VIAL IM ONE (22:20)
[2019-01-30] MEDS ORDERED: mag hydrox/Alum hydrox/simeth 30ml oral suspension PO ONE (22:20)
[2019-01-30] MEDS ORDERED: LIDOcaine Viscous 15ml cup MM ONE (22:20)
[2019-01-30] MEDS ORDERED: morphine 4 MG/ML inj SYRINge IM ONE ×2 (22:20→22:40)
[2019-01-30] MEDS ORDERED: ondansetron/PF 4mg/2ml inj IV ONE (22:55)
--- NOTE | 2019-01-30 23:12 | NUR ---
INFORMED MARYJANE COSTA ORDER WAS FOR WRONG PT. RECIEVED VERBAL ORDER TO CANCEL THIS INCORRECT ORDER ON THIS PT.
[2019-01-30 23:15] VITALS: BP 137/87
== END 2019-01-30 22:51 | disposition home or self-care (01) ==
LOC: ER 19:33
DX: K44.9 Diaphragmatic hernia without obstruction or gangrene (principal); J02.9 Acute pharyngitis, unspecified; J39.2 Other diseases of pharynx; R11.2 Nausea with vomiting, unspecified; G43.909 Migraine, unspecified, not intractable, without status migrainosus; F41.9 Anxiety disorder, unspecified; Z87.19 Personal history of other diseases of the digestive system; Z87.442 Personal history of urinary calculi; Z87.440 Personal history of urinary (tract) infections; Z88.0 Allergy status to penicillin; Z88.1 Allergy status to other antibiotic agents; Z88.6 Allergy status to analgesic agent; Z88.8 Allergy status to other drugs, medicaments and biological substances; Z79.899 Other long term (current) drug therapy; Z90.49 Acquired absence of other specified parts of digestive tract; Z90.710 Acquired absence of both cervix and uterus; Z90.89 Acquired absence of other organs; Z56.0 Unemployment, unspecified
CPT/HCPCS: 36415; 80053; 81003; 83690; 85025; 96372; 99283; J1885; J2270; J2405

== ENCOUNTER 2019-02-02 07:00 | Emergency (ER) | payer OTHER ==
[~2019-02-02] VITALS: Ht 162.6 cm; Wt 89.5 kg
[2019-02-02 07:05] VITALS: BP 113/65
[2019-02-02 07:52] LABS: BASOPHILS % (AUTO) 0.5 % (0-1); EOSINOPHILS # (AUTO) 0.1 X10'3 (0-0.9); EOSINOPHILS % (AUTO) 1.2 % (0-6); HEMATOCRIT 38.7 % (35.0-45.0); HEMOGLOBIN 13.1 g/dl (12.0-16.0); LYMPHOCYTES # (AUTO) 2.5 X10'3 (1.1-4.8); LYMPHOCYTES % (AUTO) 38.9 % (21-51); MEAN CORPUSCULAR HEMOGLOBIN 30.7 PG (27.0-31.0); MEAN CORPUSCULAR HGB CONC 33.9 g/dL (33.0-36.5); MEAN CORPUSCULAR VOLUME 90.5 FL (78-98); MEAN PLATELET VOLUME 7.8 FL (7.4-10.4); MONOCYTES # (AUTO) 0.4 X10'3 (0-0.9); MONOCYTES % (AUTO) 6.1 % (2-12); NEUTROPHILS # (AUTO) 3.5 X10'3 (1.8-7.7); NEUTROPHILS % (AUTO) 53.3 % (42-75); PLATELET COUNT 286 X10'3 (140-440); RED BLOOD COUNT 4.28 X10'6 (4.20-5.60); WHITE BLOOD COUNT 6.5 X10'3 (4.5-11.0)
[2019-02-02 07:55] LABS: URINE HCG NEGATIVE (NEG)
[2019-02-02] MEDS ORDERED: diphenhydrAMINE 50 mg/ml inj IV ONE (07:55)
[2019-02-02] MEDS ORDERED: normal saline 1000ML IV soln IVB ONE (07:55)
[2019-02-02] MEDS ORDERED: morphine 4 MG/ML inj SYRINge IV PRN (07:55)
[2019-02-02] MEDS ORDERED: haloperidol lactate 5mg/ml inj IM ONE (07:55)
[2019-02-02 07:56] LABS: CLARITY,URINE SLIGHTLY CLOUDY (Clear); COLOR,URINE YELLOW (Yellow); GLUCOSE, URINE NEGATIVE (Neg); KETONES,URINE NEGATIVE (Neg); LEUKOCYTE ESTERASE ,URINE NEGATIVE (Neg); NITRITES, URINE NEGATIVE (Neg); OCCULT BLOOD,URINE NEGATIVE (Neg); PH,URINE 6.5 (4.8-8.0); PROTEIN,URINE NEGATIVE (Neg); UROBILINOGEN,URINE 0.2 E.U/dL (0.2-1.0)
[2019-02-02 07:57] LABS: UA COLLECTION TYPE CLN CATCH MIDSTREAM
[2019-02-02 08:05] LABS: SQUAMOUS EPITHELIAL CELL,UR MANY /LPF (FEW)
[2019-02-02 08:07] LABS: BACTERIA,URINE 1+ /HPF (Neg); RBC,URINE 0-2 /HPF (0-2); WBC,URINE 0-4 /HPF (0-4); YEAST FEW /HPF (NEGATIVE)
[2019-02-02] MEDS ORDERED: ondansetron/PF 4mg/2ml inj IV ONE (08:15)
[2019-02-02 08:17] LABS: ALANINE AMINOTRANSFERASE 37 U/L (12-78); ALBUMIN 3.5 G/DL (3.4-5.0); ALBUMIN/GLOBULIN RATIO 0.8 (1.1-1.5); ALKALINE PHOSPHATASE 91 IU/L (46-116); ANION GAP 5 (8-16); ASPARTATE AMINO TRANSFERASE 22 U/L (10-37); BILIRUBIN,TOTAL 0.4 MG/DL (0.1-1.0); BLOOD UREA NITROGEN 16 MG/DL (7-18); BUN/CREATININE RATIO 17.4 (6.6-38.0); CALCIUM 9.2 MG/DL (8.5-10.1); CHLORIDE 106 MMOL/L (99-107); CREATININE 0.92 MG/DL (0.40-0.90); GLUCOSE 110 MG/DL (70-104); LIPASE 101 U/L (73-393); POTASSIUM 4.5 MMOL/L (3.5-5.1); SODIUM 141 MMOL/L (135-145); TOTAL CARBON DIOXIDE 30.3 MMOL/L (24-32); TOTAL PROTEIN 7.7 G/DL (6.4-8.2); eGFR 63 ML/MIN
[2019-02-02 09:51] LABS: URINE AMPHETAMINE SCREEN NEGATIVE (Neg); URINE BARBITUATE SCREEN NEGATIVE (Neg); URINE BENZODIAZEPINES SCREEN NEGATIVE (Neg); URINE CANNABINOID SCREEN NEGATIVE (Neg); URINE COCAINE SCREEN NEGATIVE (Neg); URINE METHADONE SCREEN NEGATIVE (Neg); URINE OPIATE SCREEN NEGATIVE (Neg); URINE PHENCYCLIDINE SCREEN NEGATIVE (Neg)
[2019-02-02] MEDS ORDERED: PROC-8 PO (10:07)
== END 2019-02-02 10:17 | disposition home or self-care (01) ==
LOC: ER 07:02
DX: R11.2 Nausea with vomiting, unspecified (principal); R10.13 Epigastric pain; G43.909 Migraine, unspecified, not intractable, without status migrainosus; F41.9 Anxiety disorder, unspecified; Z86.19 Personal history of other infectious and parasitic diseases; Z87.442 Personal history of urinary calculi; Z90.49 Acquired absence of other specified parts of digestive tract; Z90.710 Acquired absence of both cervix and uterus; Z98.890 Other specified postprocedural states; Z90.89 Acquired absence of other organs; Z56.0 Unemployment, unspecified; Z88.0 Allergy status to penicillin; Z88.1 Allergy status to other antibiotic agents; Z88.8 Allergy status to other drugs, medicaments and biological substances; Z79.899 Other long term (current) drug therapy
CPT/HCPCS: 36415; 80053; 80305; 81001; 81025; 83690; 85025; 85610; 96361; 96374; 99283; J1200; J1630; J2405; J7030

== ENCOUNTER 2019-02-11 16:46 | Emergency (ER) | payer MEDICAID ==
[~2019-02-11] VITALS: Ht 162.6 cm; Wt 86.0 kg
[~2019-02-11 16:46] MED LIST changes: +PROC-8 PO
[2019-02-11 17:22] LABS: BASOPHILS # (AUTO) 0.1 X10'3 (0-0.2); BASOPHILS % (AUTO) 0.6 % (0-1); EOSINOPHILS % (AUTO) 0.4 % (0-6); HEMATOCRIT 40.6 % (35.0-45.0); LYMPHOCYTES # (AUTO) 3.3 X10'3 (1.1-4.8); LYMPHOCYTES % (AUTO) 33.6 % (21-51); MEAN CORPUSCULAR HGB CONC 34.4 g/dL (33.0-36.5); MEAN CORPUSCULAR VOLUME 90.2 FL (78-98); MEAN PLATELET VOLUME 8.2 FL (7.4-10.4); MONOCYTES # (AUTO) 0.5 X10'3 (0-0.9); MONOCYTES % (AUTO) 5.2 % (2-12); NEUTROPHILS # (AUTO) 5.9 X10'3 (1.8-7.7); NEUTROPHILS % (AUTO) 60.2 % (42-75); PLATELET COUNT 303 X10'3 (140-440); RED CELL DISTRIBUTION WIDTH 13.3 % (11.5-14.5); WHITE BLOOD COUNT 9.8 X10'3 (4.5-11.0)
[2019-02-11 17:30] LABS: CLARITY,URINE CLEAR (Clear); COLOR,URINE YELLOW (Yellow); GLUCOSE, URINE NEGATIVE (Neg); KETONES,URINE NEGATIVE (Neg); LEUKOCYTE ESTERASE ,URINE NEGATIVE (Neg); NITRITES, URINE NEGATIVE (Neg); OCCULT BLOOD,URINE NEGATIVE (Neg); PH,URINE 5.5 (4.8-8.0); PROTEIN,URINE NEGATIVE (Neg); UROBILINOGEN,URINE 0.2 E.U/dL (0.2-1.0)
[2019-02-11 17:32] LABS: UA COLLECTION TYPE CLN CATCH MIDSTREAM
[2019-02-11 17:37] LABS: ALANINE AMINOTRANSFERASE 28 U/L (12-78); ALBUMIN 4.1 G/DL (3.4-5.0); ALBUMIN/GLOBULIN RATIO 0.9 (1.1-1.5); ALKALINE PHOSPHATASE 94 IU/L (46-116); ANION GAP 11 (8-16); ASPARTATE AMINO TRANSFERASE 15 U/L (10-37); BILIRUBIN,TOTAL 0.3 MG/DL (0.1-1.0); BLOOD UREA NITROGEN 17 MG/DL (7-18); CALCIUM 9.6 MG/DL (8.5-10.1); CHLORIDE 102 MMOL/L (99-107); CREATININE 0.85 MG/DL (0.40-0.90); GLUCOSE 91 MG/DL (70-104); LIPASE 115 U/L (73-393); POTASSIUM 4.5 MMOL/L (3.5-5.1); SODIUM 138 MMOL/L (135-145); TOTAL CARBON DIOXIDE 24.7 MMOL/L (24-32); TOTAL PROTEIN 8.7 G/DL (6.4-8.2); eGFR 69 ML/MIN
[2019-02-11] MEDS ORDERED: normal saline 1000ML IV soln IVB ONE (18:35)
[2019-02-11] MEDS ORDERED: proCHLORperazine 10 MG/2 ml inj IV ONE (18:35)
[2019-02-11] MEDS ORDERED: diphenhydrAMINE 50 mg/ml inj IV ONE (18:35)
[2019-02-11 19:46] VITALS: BP 121/76
== END 2019-02-11 19:48 | disposition home or self-care (01) ==
LOC: ER 16:46
DX: R11.15 Cyclical vomiting syndrome unrelated to migraine (principal); R10.13 Epigastric pain; G43.909 Migraine, unspecified, not intractable, without status migrainosus; Z87.442 Personal history of urinary calculi; Z56.0 Unemployment, unspecified; Z90.49 Acquired absence of other specified parts of digestive tract; Z90.710 Acquired absence of both cervix and uterus; Z98.890 Other specified postprocedural states; Z88.8 Allergy status to other drugs, medicaments and biological substances; Z88.0 Allergy status to penicillin; Z88.1 Allergy status to other antibiotic agents; Z88.5 Allergy status to narcotic agent
CPT/HCPCS: 36415; 80053; 81003; 83690; 85025; 96361; 96374; 96375; 99283; J0780; J1200; J7030

== ENCOUNTER 2019-03-06 12:06 | Emergency (ER) | payer MEDICAID ==
[~2019-03-06] VITALS: Ht 162.6 cm; Wt 86.0 kg
[2019-03-06 12:24] LABS: URINE HCG NEGATIVE (NEG)
[2019-03-06 12:25] LABS: CLARITY,URINE CLEAR (Clear); COLOR,URINE YELLOW (Yellow); PH,URINE 7.5 (4.8-8.0)
--- NOTE | 2019-03-06 12:27 | NUR ---
IN TO ASSESS PT. LAB TO BS TO DRAW AND PT STATES "SHES NOT DRAWING MY BLOOD" PT STATES WE NEED TO FIND SOME ONE ELSE. INFORMED DR AMAYA OF PT REFUSAL OF LAB HE STATES TO CXL LAB ORDERS THEY WERE PLACED BY TRIAGE AND NOT NEEDED AT THIS TIME
[2019-03-06 12:30] LABS: UA COLLECTION TYPE CLN CATCH MIDSTREAM
[2019-03-06 12:42] LABS: SQUAMOUS EPITHELIAL CELL,UR MODERATE /LPF (FEW)
[2019-03-06 12:44] LABS: BACTERIA,URINE 1+ /HPF (Neg); RBC,URINE 0-2 /HPF (0-2); WBC,URINE 0-4 /HPF (0-4); YEAST FEW /HPF (NEGATIVE)
[2019-03-06] MEDS ORDERED: morphine 4 MG/ML inj SYRINge IV PRN (13:30)
[2019-03-06] MEDS ORDERED: normal saline 1000ML IV soln IVB ONE (13:30)
[2019-03-06] MEDS ORDERED: ondansetron/PF 4mg/2ml inj IV ONE (13:30)
[2019-03-06] MEDS ORDERED: morphine 4 MG/ML inj SYRINge IM PRN (14:10)
[2019-03-06 14:23] LABS: BASOPHILS % (AUTO) 0.6 % (0-1); EOSINOPHILS # (AUTO) 0.1 X10'3 (0-0.9); EOSINOPHILS % (AUTO) 0.7 % (0-6); HEMATOCRIT 40.9 % (35.0-45.0); HEMOGLOBIN 14.3 g/dl (12.0-16.0); LYMPHOCYTES # (AUTO) 2.7 X10'3 (1.1-4.8); LYMPHOCYTES % (AUTO) 34.5 % (21-51); MEAN CORPUSCULAR HEMOGLOBIN 31.1 PG (27.0-31.0); MEAN PLATELET VOLUME 7.9 FL (7.4-10.4); MONOCYTES # (AUTO) 0.4 X10'3 (0-0.9); MONOCYTES % (AUTO) 5.5 % (2-12); NEUTROPHILS # (AUTO) 4.6 X10'3 (1.8-7.7); NEUTROPHILS % (AUTO) 58.7 % (42-75); PLATELET COUNT 300 X10'3 (140-440); RED CELL DISTRIBUTION WIDTH 12.8 % (11.5-14.5); WHITE BLOOD COUNT 7.9 X10'3 (4.5-11.0)
[2019-03-06 14:42] LABS: ALANINE AMINOTRANSFERASE 30 U/L (12-78); ALBUMIN 3.9 G/DL (3.4-5.0); ALBUMIN/GLOBULIN RATIO 0.9 (1.1-1.5); ALKALINE PHOSPHATASE 94 IU/L (46-116); ANION GAP 7 (8-16); ASPARTATE AMINO TRANSFERASE 13 U/L (10-37); BILIRUBIN,TOTAL 0.4 MG/DL (0.1-1.0); BLOOD UREA NITROGEN 9 MG/DL (7-18); BUN/CREATININE RATIO 11.3 (6.6-38.0); CALCIUM 9.3 MG/DL (8.5-10.1); CHLORIDE 105 MMOL/L (99-107); GLUCOSE 98 MG/DL (70-104); LIPASE 109 U/L (73-393); POTASSIUM 4.3 MMOL/L (3.5-5.1); SODIUM 140 MMOL/L (135-145); TOTAL CARBON DIOXIDE 28.4 MMOL/L (24-32); TOTAL PROTEIN 8.4 G/DL (6.4-8.2); eGFR 74 ML/MIN
[2019-03-06] MEDS ORDERED: ACET-3067 PO (15:14)
[2019-03-06 15:39] VITALS: BP 103/51
== END 2019-03-06 15:33 | disposition home or self-care (01) ==
LOC: ER 12:06
DX: N83.202 Unspecified ovarian cyst, left side (principal); R19.7 Diarrhea, unspecified; F41.9 Anxiety disorder, unspecified; Z90.49 Acquired absence of other specified parts of digestive tract; Z90.710 Acquired absence of both cervix and uterus; Z98.890 Other specified postprocedural states; Z56.0 Unemployment, unspecified; Z88.0 Allergy status to penicillin; Z88.1 Allergy status to other antibiotic agents; Z88.8 Allergy status to other drugs, medicaments and biological substances; Z79.899 Other long term (current) drug therapy
CPT/HCPCS: 36415; 74176; 80053; 81001; 81025; 83690; 85025; 96360; 96372; 99284; J2270; J2405; J7030

== ENCOUNTER 2019-03-10 09:13 | Outpatient (CLI) | payer MEDICAID ==
[~2019-03-10 09:13] MED LIST changes: +ACET-3067 PO
== END 2019-03-10 23:59 | disposition home or self-care (01) ==
LOC: RAD 09:13
PROVIDERS: ATTEND Internal Medicine Gastroenterology
DX: K21.0 Gastro-esophageal reflux disease with esophagitis (principal); K44.9 Diaphragmatic hernia without obstruction or gangrene; K29.70 Gastritis, unspecified, without bleeding
CPT/HCPCS: 76937; 78226; A9537

== ENCOUNTER 2019-03-19 21:01 | Emergency (ER) | payer MEDICAID ==
[~2019-03-19] VITALS: Ht 160 cm; Wt 86.8 kg
[2019-03-19 22:20] LABS: ALANINE AMINOTRANSFERASE 27 U/L (12-78); ALBUMIN 3.6 G/DL (3.4-5.0); ALBUMIN/GLOBULIN RATIO 0.9 (1.1-1.5); ALKALINE PHOSPHATASE 96 IU/L (46-116); ANION GAP 7 (8-16); ASPARTATE AMINO TRANSFERASE 14 U/L (10-37); BILIRUBIN,TOTAL 0.2 MG/DL (0.1-1.0); BLOOD UREA NITROGEN 16 MG/DL (7-18); BUN/CREATININE RATIO 16.2 (6.6-38.0); CALCIUM 8.8 MG/DL (8.5-10.1); CHLORIDE 104 MMOL/L (99-107); CREATININE 0.99 MG/DL (0.40-0.90); GLUCOSE 97 MG/DL (70-104); POTASSIUM 4.1 MMOL/L (3.5-5.1); SODIUM 140 MMOL/L (135-145); TOTAL CARBON DIOXIDE 28.8 MMOL/L (24-32); TOTAL PROTEIN 7.5 G/DL (6.4-8.2); eGFR 58 ML/MIN
[2019-03-19 22:22] LABS: BASOPHILS # (AUTO) 0.1 X10'3 (0-0.2); BASOPHILS % (AUTO) 0.6 % (0-1); EOSINOPHILS # (AUTO) 0.1 X10'3 (0-0.9); EOSINOPHILS % (AUTO) 0.7 % (0-6); HEMATOCRIT 38.7 % (35.0-45.0); HEMOGLOBIN 13.2 g/dl (12.0-16.0); LYMPHOCYTES # (AUTO) 3.7 X10'3 (1.1-4.8); MEAN CORPUSCULAR HEMOGLOBIN 30.6 PG (27.0-31.0); MEAN CORPUSCULAR HGB CONC 34.1 g/dL (33.0-36.5); MEAN CORPUSCULAR VOLUME 89.6 FL (78-98); MEAN PLATELET VOLUME 8.1 FL (7.4-10.4); MONOCYTES # (AUTO) 0.5 X10'3 (0-0.9); MONOCYTES % (AUTO) 5.5 % (2-12); NEUTROPHILS # (AUTO) 5.1 X10'3 (1.8-7.7); NEUTROPHILS % (AUTO) 54.2 % (42-75); PLATELET COUNT 276 X10'3 (140-440); RED BLOOD COUNT 4.32 X10'6 (4.20-5.60); RED CELL DISTRIBUTION WIDTH 12.8 % (11.5-14.5); WHITE BLOOD COUNT 9.5 X10'3 (4.5-11.0)
[2019-03-19] MEDS ORDERED: normal saline 1000ml 1,000 ML IV ONE ×2 (22:25)
[2019-03-19] MEDS ORDERED: ondansetron/PF 4mg/2ml inj IV ONE (23:00)
[2019-03-19 23:47] LABS: CLARITY,URINE CLEAR (Clear); COLOR,URINE STRAW (Yellow); GLUCOSE, URINE NEGATIVE (Neg); KETONES,URINE NEGATIVE (Neg); LEUKOCYTE ESTERASE ,URINE TRACE (Neg); NITRITES, URINE NEGATIVE (Neg); OCCULT BLOOD,URINE NEGATIVE (Neg); PROTEIN,URINE NEGATIVE (Neg); UROBILINOGEN,URINE 0.2 E.U/dL (0.2-1.0)
[2019-03-19 23:49] LABS: UA COLLECTION TYPE CLN CATCH MIDSTREAM
[2019-03-19 23:58] LABS: BACTERIA,URINE 1+ /HPF (Neg); RBC,URINE NONE SEEN /HPF (0-2); WBC,URINE 0-4 /HPF (0-4)
[2019-03-19 23:59] LABS: MUCUS STRANDS FEW /LPF (Neg); SQUAMOUS EPITHELIAL CELL,UR FEW /LPF (FEW); YEAST FEW /HPF (NEGATIVE)
[2019-03-20 00:03] VITALS: BP 107/64
== END 2019-03-20 00:05 | disposition home or self-care (01) ==
LOC: ER 21:04
DX: E86.0 Dehydration (principal); R35.0 Frequency of micturition; G43.909 Migraine, unspecified, not intractable, without status migrainosus; F41.9 Anxiety disorder, unspecified; Z86.19 Personal history of other infectious and parasitic diseases; Z87.442 Personal history of urinary calculi; Z90.49 Acquired absence of other specified parts of digestive tract; Z90.710 Acquired absence of both cervix and uterus; Z90.89 Acquired absence of other organs; Z56.0 Unemployment, unspecified; Z88.0 Allergy status to penicillin; Z88.1 Allergy status to other antibiotic agents; Z88.5 Allergy status to narcotic agent; Z79.899 Other long term (current) drug therapy
CPT/HCPCS: 36415; 71045; 80053; 81001; 82948; 84484; 85025; 87088; 93005; 96360; 99284; J7030

== ENCOUNTER 2019-03-25 10:45 | Emergency (ER) | payer MEDICAID ==
[~2019-03-25] VITALS: Ht 160 cm; Wt 88.6 kg
[~2019-03-25 10:45] MED LIST changes: -ACET-3067 PO
[2019-03-25 11:32] LABS: URINE HCG NEGATIVE (NEG)
[2019-03-25 11:37] LABS: CLARITY,URINE SLIGHTLY CLOUDY (Clear); COLOR,URINE STRAW (Yellow); GLUCOSE, URINE NEGATIVE (Neg); KETONES,URINE NEGATIVE (Neg); LEUKOCYTE ESTERASE ,URINE NEGATIVE (Neg); NITRITES, URINE NEGATIVE (Neg); OCCULT BLOOD,URINE NEGATIVE (Neg); PROTEIN,URINE NEGATIVE (Neg); UROBILINOGEN,URINE 0.2 E.U/dL (0.2-1.0)
[2019-03-25 11:45] LABS: UA COLLECTION TYPE CLN CATCH MIDSTREAM
[2019-03-25 11:46] LABS: MUCUS STRANDS FEW /LPF (Neg); SQUAMOUS EPITHELIAL CELL,UR MANY /LPF (FEW)
[2019-03-25 11:47] LABS: BACTERIA,URINE 2+ /HPF (Neg); RBC,URINE 0-2 /HPF (0-2); WBC,URINE 0-4 /HPF (0-4)
--- NOTE | 2019-03-25 11:47 | NUR ---
patient is refusing to let lab draw her or us put an IV unless we use an ultrasound. charge nurse aware and andre nelson aware. omar does not believe we will need blood.
[2019-03-25 11:48] LABS: YEAST MANY /HPF (NEGATIVE)
[2019-03-25] MEDS ORDERED: ketorolac tromethamine 15mg/ml inj. IM ONE (12:35)
[2019-03-25 13:28] LABS: EOSINOPHILS % (AUTO) 0.3 % (0-6); HEMOGLOBIN 13.2 g/dl (12.0-16.0); MEAN CORPUSCULAR VOLUME 90.5 FL (78-98); MEAN PLATELET VOLUME 8.1 FL (7.4-10.4); PLATELET COUNT 300 X10'3 (140-440); WHITE BLOOD COUNT 9.4 X10'3 (4.5-11.0)
[2019-03-25 13:30] LABS: BASOPHILS % (AUTO) 0.3 % (0-1); HEMATOCRIT 38.4 % (35.0-45.0); LYMPHOCYTES # (AUTO) 2.8 X10'3 (1.1-4.8); LYMPHOCYTES % (AUTO) 29.3 % (21-51); MEAN CORPUSCULAR HGB CONC 34.3 g/dL (33.0-36.5); MONOCYTES # (AUTO) 0.5 X10'3 (0-0.9); MONOCYTES % (AUTO) 5.4 % (2-12); NEUTROPHILS # (AUTO) 6.1 X10'3 (1.8-7.7); NEUTROPHILS % (AUTO) 64.7 % (42-75); RED BLOOD COUNT 4.25 X10'6 (4.20-5.60); RED CELL DISTRIBUTION WIDTH 13.2 % (11.5-14.5)
[2019-03-25 13:51] VITALS: BP 105/57
[2019-03-25 14:04] LABS: ALANINE AMINOTRANSFERASE 28 U/L (12-78); ALBUMIN 3.7 G/DL (3.4-5.0); ALBUMIN/GLOBULIN RATIO 0.9 (1.1-1.5); ALKALINE PHOSPHATASE 95 IU/L (46-116); ANION GAP 11 (8-16); ASPARTATE AMINO TRANSFERASE 10 U/L (10-37); BILIRUBIN,TOTAL 0.3 MG/DL (0.1-1.0); BLOOD UREA NITROGEN 14 MG/DL (7-18); BUN/CREATININE RATIO 17.5 (6.6-38.0); CHLORIDE 104 MMOL/L (99-107); GLUCOSE 97 MG/DL (70-104); POTASSIUM 4.5 MMOL/L (3.5-5.1); SODIUM 139 MMOL/L (135-145); TOTAL CARBON DIOXIDE 24.3 MMOL/L (24-32); TOTAL PROTEIN 7.6 G/DL (6.4-8.2); eGFR 74 ML/MIN
[2019-03-25] MEDS ORDERED: ondansetron 4mg rapidly disintigrating tab PO ONE (14:05)
[2019-03-25] MEDS ORDERED: HYDROcodone/acetaminophen 5mg/325mg tablet PO ONE (14:25)
[2019-03-25] MEDS ORDERED: OXYB5TAB16 PO (14:41)
[2019-03-25] MEDS ORDERED: HYDR-3965 PO (14:41)
== END 2019-03-25 14:59 | disposition home or self-care (01) ==
LOC: ER 10:45
DX: R10.30 Lower abdominal pain, unspecified (principal); E86.0 Dehydration; G43.909 Migraine, unspecified, not intractable, without status migrainosus; F41.9 Anxiety disorder, unspecified; Z87.442 Personal history of urinary calculi; Z86.19 Personal history of other infectious and parasitic diseases; Z90.49 Acquired absence of other specified parts of digestive tract; Z90.710 Acquired absence of both cervix and uterus; Z90.89 Acquired absence of other organs; Z98.890 Other specified postprocedural states; Z56.0 Unemployment, unspecified; Z88.0 Allergy status to penicillin; Z88.2 Allergy status to sulfonamides; Z88.1 Allergy status to other antibiotic agents; Z88.5 Allergy status to narcotic agent; Z79.899 Other long term (current) drug therapy
CPT/HCPCS: 36415; 80053; 81001; 81025; 85025; 96372; 99284; J1885

== ENCOUNTER 2019-03-29 10:12 | Emergency (ER) | payer MEDICAID ==
[~2019-03-29] VITALS: Ht 167.6 cm; Wt 90.0 kg
[~2019-03-29 10:12] MED LIST changes: +HYDR-3965 PO; +OXYB5TAB16 PO
--- NOTE | 2019-03-29 11:25 | NUR ---
DONATO Li in to assess patient at this time post review of symptoms and previous visit diagnostic results. Patient verbalized understanding of no acute treatment for symptoms is needed at this time, states she has Zofran at home and in her purse and refuses any additional Zofran at this time. Patient also states with at bedside that she is drinking a lot of water up to 2-3L per day. Patient verbalizes understanding of follow up with PCP for additional treatment of ongoing abdominal pain/symptoms.
[2019-03-29 11:36] VITALS: BP 104/60
== END 2019-03-29 11:37 | disposition home or self-care (01) ==
LOC: ER 10:25
DX: R10.13 Epigastric pain (principal); G43.909 Migraine, unspecified, not intractable, without status migrainosus; Z56.0 Unemployment, unspecified; Z90.49 Acquired absence of other specified parts of digestive tract; Z98.890 Other specified postprocedural states; Z90.710 Acquired absence of both cervix and uterus; Z87.442 Personal history of urinary calculi; Z88.0 Allergy status to penicillin; Z88.2 Allergy status to sulfonamides; Z88.1 Allergy status to other antibiotic agents; Z88.5 Allergy status to narcotic agent
CPT/HCPCS: 99281

== ENCOUNTER → 2019-04-03 | Emergency (ER) | payer MEDICAID ==
[~2019-04-03] VITALS: Ht 160 cm; Wt 84.1 kg
[2019-04-03 09:20] VITALS: BP 101/66
[2019-04-03 10:11] LABS: BASOPHILS % (AUTO) 0.6 % (0-1); EOSINOPHILS % (AUTO) 0.5 % (0-6); HEMATOCRIT 40.8 % (35.0-45.0); HEMOGLOBIN 13.9 g/dl (12.0-16.0); LYMPHOCYTES # (AUTO) 2.6 X10'3 (1.1-4.8); LYMPHOCYTES % (AUTO) 35.7 % (21-51); MEAN CORPUSCULAR HEMOGLOBIN 30.2 PG (27.0-31.0); MEAN CORPUSCULAR VOLUME 88.7 FL (78-98); MEAN PLATELET VOLUME 8.3 FL (7.4-10.4); MONOCYTES # (AUTO) 0.4 X10'3 (0-0.9); MONOCYTES % (AUTO) 5.5 % (2-12); NEUTROPHILS # (AUTO) 4.2 X10'3 (1.8-7.7); NEUTROPHILS % (AUTO) 57.7 % (42-75); PLATELET COUNT 299 X10'3 (140-440); RED CELL DISTRIBUTION WIDTH 13.3 % (11.5-14.5); WHITE BLOOD COUNT 7.3 X10'3 (4.5-11.0)
[2019-04-03 10:23] LABS: ALANINE AMINOTRANSFERASE 32 U/L (12-78); ALBUMIN 3.7 G/DL (3.4-5.0); ALBUMIN/GLOBULIN RATIO 0.9 (1.1-1.5); ALKALINE PHOSPHATASE 102 IU/L (46-116); ANION GAP 7 (8-16); ASPARTATE AMINO TRANSFERASE 18 U/L (10-37); BILIRUBIN,TOTAL 0.3 MG/DL (0.1-1.0); BLOOD UREA NITROGEN 11 MG/DL (7-18); BUN/CREATININE RATIO 12.1 (6.6-38.0); CALCIUM 9.3 MG/DL (8.5-10.1); CHLORIDE 103 MMOL/L (99-107); CREATININE 0.91 MG/DL (0.40-0.90); GLUCOSE 103 MG/DL (70-104); LIPASE 93 U/L (73-393); POTASSIUM 4.7 MMOL/L (3.5-5.1); SODIUM 140 MMOL/L (135-145); TOTAL CARBON DIOXIDE 30.5 MMOL/L (24-32); TOTAL PROTEIN 7.7 G/DL (6.4-8.2); eGFR 64 ML/MIN
[2019-04-03 11:17] LABS: CLARITY,URINE CLEAR (Clear); COLOR,URINE STRAW (Yellow); GLUCOSE, URINE NEGATIVE (Neg); KETONES,URINE NEGATIVE (Neg); LEUKOCYTE ESTERASE ,URINE NEGATIVE (Neg); NITRITES, URINE NEGATIVE (Neg); OCCULT BLOOD,URINE NEGATIVE (Neg); PROTEIN,URINE NEGATIVE (Neg); UROBILINOGEN,URINE 0.2 E.U/dL (0.2-1.0)
[2019-04-03 11:19] LABS: UA COLLECTION TYPE CLN CATCH MIDSTREAM
== END | disposition home or self-care (01) ==
LOC: ER 08:08
DX: G89.29 Other chronic pain (principal); R10.9 Unspecified abdominal pain; G43.909 Migraine, unspecified, not intractable, without status migrainosus; Z56.0 Unemployment, unspecified; Z87.442 Personal history of urinary calculi; Z90.49 Acquired absence of other specified parts of digestive tract; Z90.710 Acquired absence of both cervix and uterus; Z98.890 Other specified postprocedural states; Z88.8 Allergy status to other drugs, medicaments and biological substances; Z88.0 Allergy status to penicillin; Z88.2 Allergy status to sulfonamides; Z88.3 Allergy status to other anti-infective agents; Z88.1 Allergy status to other antibiotic agents
CPT/HCPCS: 36415; 80053; 81003; 83690; 85025; 99284

== ENCOUNTER 2019-04-05 19:13 | Emergency (ER) | payer MEDICAID ==
[~2019-04-05] VITALS: Ht 160 cm; Wt 84.0 kg
[2019-04-05 19:41] LABS: CLARITY,URINE CLEAR (Clear); COLOR,URINE YELLOW (Yellow); GLUCOSE, URINE NEGATIVE (Neg); KETONES,URINE NEGATIVE (Neg); LEUKOCYTE ESTERASE ,URINE NEGATIVE (Neg); NITRITES, URINE NEGATIVE (Neg); OCCULT BLOOD,URINE NEGATIVE (Neg); PROTEIN,URINE NEGATIVE (Neg); UROBILINOGEN,URINE 0.2 E.U/dL (0.2-1.0)
[2019-04-05 19:43] LABS: UA COLLECTION TYPE CLN CATCH MIDSTREAM
--- NOTE | 2019-04-05 19:45 | NUR ---
PT MOVED FROM ROOM 6 TO ROOM 15 . LAB AT BEDSIDE WITH RN DRAWING BLOOD
--- NOTE | 2019-04-05 19:50 | NUR ---
LAB REFUSED TO DRAW BLOOD DUE TO PREVIOUS CONFLICTS WITH PT AND BOYFRIEND.
--- NOTE | 2019-04-05 19:58 | NUR ---
PT AND BECAME AGGRESIVE WHILE I ATTEMPTED TO JUST LOOK FOR A SPOT TO DRAW BLOOD. PT REQUESTED ME TO NOT BE IN ROOM ANYMORE. ISABEL CARDENAS RN NOTIFIED
--- NOTE | 2019-04-05 20:11 | NUR ---
SECURITY ON STANDBY
[2019-04-05 20:47] LABS: BASOPHILS # (AUTO) 0.1 X10'3 (0-0.2); BASOPHILS % (AUTO) 0.7 % (0-1); EOSINOPHILS # (AUTO) 0.1 X10'3 (0-0.9); EOSINOPHILS % (AUTO) 0.6 % (0-6); HEMOGLOBIN 13.8 g/dl (12.0-16.0); LYMPHOCYTES # (AUTO) 3.3 X10'3 (1.1-4.8); LYMPHOCYTES % (AUTO) 36.6 % (21-51); MEAN CORPUSCULAR HEMOGLOBIN 30.8 PG (27.0-31.0); MEAN CORPUSCULAR HGB CONC 34.5 g/dL (33.0-36.5); MEAN CORPUSCULAR VOLUME 89.3 FL (78-98); MEAN PLATELET VOLUME 8.2 FL (7.4-10.4); MONOCYTES # (AUTO) 0.5 X10'3 (0-0.9); MONOCYTES % (AUTO) 5.9 % (2-12); NEUTROPHILS # (AUTO) 5.1 X10'3 (1.8-7.7); NEUTROPHILS % (AUTO) 56.2 % (42-75); PLATELET COUNT 293 X10'3 (140-440); RED BLOOD COUNT 4.48 X10'6 (4.20-5.60); RED CELL DISTRIBUTION WIDTH 12.9 % (11.5-14.5)
[2019-04-05 21:00] LABS: ALANINE AMINOTRANSFERASE 32 U/L (12-78); ALBUMIN 3.9 G/DL (3.4-5.0); ALKALINE PHOSPHATASE 101 IU/L (46-116); ANION GAP 9 (8-16); ASPARTATE AMINO TRANSFERASE 19 U/L (10-37); BILIRUBIN,TOTAL 0.2 MG/DL (0.1-1.0); BLOOD UREA NITROGEN 14 MG/DL (7-18); BUN/CREATININE RATIO 16.7 (6.6-38.0); CALCIUM 9.2 MG/DL (8.5-10.1); CHLORIDE 105 MMOL/L (99-107); CREATININE 0.84 MG/DL (0.40-0.90); GLUCOSE 88 MG/DL (70-104); POTASSIUM 4.2 MMOL/L (3.5-5.1); SODIUM 142 MMOL/L (135-145); TOTAL CARBON DIOXIDE 28.1 MMOL/L (24-32); eGFR 70 ML/MIN
--- NOTE | 2019-04-05 21:00 | NUR ---
PT'S DAUGHTER KUNAL GODOY IS CALLING TRYING TO GET INFORMATIONS ON HER MOTHER. PT HAS GIVEN ME VERBAL PERMISSION TO GIVE HER DAUGHTER INFORMATION.
[2019-04-05 21:03] LABS: TROPONIN I < 0.04 NG/ML (0.0-0.05)
--- NOTE | 2019-04-05 21:03 | NUR ---
KUNAL PT'S DAUGHTER .
[2019-04-05 21:31] VITALS: BP 102/61
== END 2019-04-05 21:34 | disposition home or self-care (01) ==
LOC: ER 19:13
DX: R07.89 Other chest pain (principal); K44.9 Diaphragmatic hernia without obstruction or gangrene; G43.909 Migraine, unspecified, not intractable, without status migrainosus; Z56.0 Unemployment, unspecified; Z87.891 Personal history of nicotine dependence; Z98.890 Other specified postprocedural states; Z90.49 Acquired absence of other specified parts of digestive tract; Z90.710 Acquired absence of both cervix and uterus; Z87.442 Personal history of urinary calculi; Z88.8 Allergy status to other drugs, medicaments and biological substances; Z88.0 Allergy status to penicillin; Z88.2 Allergy status to sulfonamides; Z88.3 Allergy status to other anti-infective agents; Z88.1 Allergy status to other antibiotic agents
CPT/HCPCS: 36415; 71045; 80053; 81003; 84484; 85025; 93005; 99284

== ENCOUNTER 2019-05-13 06:39 | Emergency (ER) | payer MEDICAID ==
[~2019-05-13] VITALS: Ht 160 cm; Wt 84.0 kg
[~2019-05-13 06:39] MED LIST changes: -HYDR-3965 PO
[2019-05-13 06:40] VITALS: BP 109/64
[2019-05-13] MEDS ORDERED: HYDR-4353 PO (07:19)
== END 2019-05-13 07:26 | disposition home or self-care (01) ==
LOC: ER 06:39
DX: S39.011A Strain of muscle, fascia and tendon of abdomen, initial encounter (principal); G43.909 Migraine, unspecified, not intractable, without status migrainosus; Z56.0 Unemployment, unspecified; Z98.890 Other specified postprocedural states; Z90.49 Acquired absence of other specified parts of digestive tract; Z87.442 Personal history of urinary calculi; Z88.0 Allergy status to penicillin; Z88.2 Allergy status to sulfonamides; Z88.3 Allergy status to other anti-infective agents; Z88.1 Allergy status to other antibiotic agents; W01.0XXA Fall on same level from slipping, tripping and stumbling without subsequent striking against object, initial encounter; Y93.89 Activity, other specified; Y92.89 Other specified places as the place of occurrence of the external cause; Y99.9 Unspecified external cause status
CPT/HCPCS: 99283

== ENCOUNTER 2019-08-09 13:42 | Emergency (ER) | payer MEDICAID ==
[~2019-08-09] VITALS: Ht 160 cm; Wt 86.4 kg
[2019-08-09 14:34] LABS: BASOPHILS % (AUTO) 0.5 % (0-1); EOSINOPHILS # (AUTO) 0.1 X10'3 (0-0.9); EOSINOPHILS % (AUTO) 0.7 % (0-6); HEMATOCRIT 40.3 % (35.0-45.0); HEMOGLOBIN 13.4 g/dl (12.0-16.0); LYMPHOCYTES # (AUTO) 3.3 X10'3 (1.1-4.8); LYMPHOCYTES % (AUTO) 39.3 % (21-51); MEAN CORPUSCULAR HEMOGLOBIN 30.4 PG (27.0-31.0); MEAN CORPUSCULAR HGB CONC 33.4 g/dL (33.0-36.5); MEAN CORPUSCULAR VOLUME 91.1 FL (78-98); MEAN PLATELET VOLUME 8.2 FL (7.4-10.4); MONOCYTES # (AUTO) 0.5 X10'3 (0-0.9); MONOCYTES % (AUTO) 6.4 % (2-12); NEUTROPHILS # (AUTO) 4.5 X10'3 (1.8-7.7); NEUTROPHILS % (AUTO) 53.1 % (42-75); PLATELET COUNT 300 X10'3 (140-440); RED BLOOD COUNT 4.43 X10'6 (4.20-5.60); RED CELL DISTRIBUTION WIDTH 13.5 % (11.5-14.5); WHITE BLOOD COUNT 8.4 X10'3 (4.5-11.0)
[2019-08-09 14:41] LABS: ALANINE AMINOTRANSFERASE 20 U/L (12-78); ALBUMIN/GLOBULIN RATIO 1.1 (1.1-1.5); ALKALINE PHOSPHATASE 98 IU/L (46-116); ANION GAP 6 (8-16); ASPARTATE AMINO TRANSFERASE 18 U/L (10-37); BILIRUBIN,TOTAL 0.3 MG/DL (0.1-1.0); BLOOD UREA NITROGEN 14 MG/DL (7-18); BUN/CREATININE RATIO 17.9 (6.6-38.0); CALCIUM 9.5 MG/DL (8.5-10.1); CHLORIDE 107 MMOL/L (99-107); CREATININE 0.78 MG/DL (0.40-0.90); GLUCOSE 100 MG/DL (70-104); POTASSIUM 4.5 MMOL/L (3.5-5.1); SODIUM 139 MMOL/L (135-145); TOTAL CARBON DIOXIDE 26.1 MMOL/L (24-32); TOTAL PROTEIN 7.7 G/DL (6.4-8.2); eGFR 77 ML/MIN
[2019-08-09 16:03] LABS: D-DIMER 0.28 MG/L FEU (0-0.50)
[2019-08-09] MEDS ORDERED: lactulose 20gm/30ml cup PO ONE (17:00)
[2019-08-09] MEDS ORDERED: methylnaltrexone br 12mg/0.6ml inj***SubQ only SQ ONE (17:00)
[2019-08-09 17:52] VITALS: BP 112/73
== END 2019-08-09 17:48 | disposition home or self-care (01) ==
LOC: ER 13:42
DX: K59.00 Constipation, unspecified (principal); R42 Dizziness and giddiness; R07.89 Other chest pain; R06.02 Shortness of breath; G43.909 Migraine, unspecified, not intractable, without status migrainosus; F41.9 Anxiety disorder, unspecified; Z87.442 Personal history of urinary calculi; Z86.19 Personal history of other infectious and parasitic diseases; Z90.710 Acquired absence of both cervix and uterus; Z98.890 Other specified postprocedural states; Z56.0 Unemployment, unspecified; Z88.8 Allergy status to other drugs, medicaments and biological substances; Z88.0 Allergy status to penicillin; Z88.2 Allergy status to sulfonamides; Z88.1 Allergy status to other antibiotic agents; Z79.899 Other long term (current) drug therapy
CPT/HCPCS: 36415; 71045; 74018; 80053; 83880; 84484; 85025; 85379; 93005; 93970; 96372; 99285; J2212

== ENCOUNTER 2019-08-15 14:51 | Emergency (ER) | payer MEDICAID ==
[~2019-08-15] VITALS: Ht 160 cm; Wt 83.2 kg
[2019-08-15 16:13] LABS: BASOPHILS % (AUTO) 0.4 % (0-1); EOSINOPHILS % (AUTO) 0.4 % (0-6); HEMATOCRIT 37.7 % (35.0-45.0); HEMOGLOBIN 12.7 g/dl (12.0-16.0); LYMPHOCYTES # (AUTO) 2.5 X10'3 (1.1-4.8); LYMPHOCYTES % (AUTO) 33.4 % (21-51); MEAN CORPUSCULAR HEMOGLOBIN 30.5 PG (27.0-31.0); MEAN CORPUSCULAR HGB CONC 33.7 g/dL (33.0-36.5); MEAN CORPUSCULAR VOLUME 90.3 FL (78-98); MEAN PLATELET VOLUME 8.1 FL (7.4-10.4); MONOCYTES # (AUTO) 0.5 X10'3 (0-0.9); MONOCYTES % (AUTO) 6.1 % (2-12); NEUTROPHILS # (AUTO) 4.5 X10'3 (1.8-7.7); NEUTROPHILS % (AUTO) 59.7 % (42-75); PLATELET COUNT 273 X10'3 (140-440); RED BLOOD COUNT 4.18 X10'6 (4.20-5.60); RED CELL DISTRIBUTION WIDTH 13.2 % (11.5-14.5); WHITE BLOOD COUNT 7.6 X10'3 (4.5-11.0)
[2019-08-15] MEDS ORDERED: normal saline 1000ML IV soln IVB ONE (16:15)
[2019-08-15] MEDS ORDERED: diphenhydrAMINE 50 mg/ml inj IV ONE (16:15)
[2019-08-15] MEDS ORDERED: LORazepam 2 mg/ml vial IV ONE (16:15)
[2019-08-15] MEDS ORDERED: metoclopramide 5 mg/ml inj IV ONE (16:15)
[2019-08-15 16:32] LABS: ALANINE AMINOTRANSFERASE 22 U/L (12-78); ALBUMIN 3.6 G/DL (3.4-5.0); ALKALINE PHOSPHATASE 89 IU/L (46-116); ANION GAP 7 (8-16); ASPARTATE AMINO TRANSFERASE 15 U/L (10-37); BILIRUBIN,TOTAL 0.3 MG/DL (0.1-1.0); BLOOD UREA NITROGEN 14 MG/DL (7-18); BUN/CREATININE RATIO 16.9 (6.6-38.0); CALCIUM 9.3 MG/DL (8.5-10.1); CHLORIDE 107 MMOL/L (99-107); CREATININE 0.83 MG/DL (0.40-0.90); GLUCOSE 101 MG/DL (70-104); SODIUM 141 MMOL/L (135-145); TOTAL CARBON DIOXIDE 26.8 MMOL/L (24-32); TOTAL PROTEIN 7.1 G/DL (6.4-8.2); eGFR 71 ML/MIN
[2019-08-15 19:17] LABS: CLARITY,URINE CLEAR (Clear); COLOR,URINE STRAW (Yellow); GLUCOSE, URINE NEGATIVE (Neg); KETONES,URINE NEGATIVE (Neg); LEUKOCYTE ESTERASE ,URINE NEGATIVE (Neg); NITRITES, URINE NEGATIVE (Neg); OCCULT BLOOD,URINE NEGATIVE (Neg); PROTEIN,URINE NEGATIVE (Neg); UROBILINOGEN,URINE 0.2 E.U/dL (0.2-1.0)
[2019-08-15 19:24] LABS: UA COLLECTION TYPE CLN CATCH MIDSTREAM
[2019-08-15 19:58] VITALS: BP 121/67
== END 2019-08-15 20:00 | disposition home or self-care (01) ==
LOC: ER 14:52
DX: E86.0 Dehydration (principal); R42 Dizziness and giddiness; G43.909 Migraine, unspecified, not intractable, without status migrainosus; R53.1 Weakness; R05 Cough; R06.02 Shortness of breath; F41.9 Anxiety disorder, unspecified; R11.2 Nausea with vomiting, unspecified; F17.210 Nicotine dependence, cigarettes, uncomplicated; Z90.49 Acquired absence of other specified parts of digestive tract; Z79.2 Long term (current) use of antibiotics; Z90.710 Acquired absence of both cervix and uterus; Z98.890 Other specified postprocedural states; Z56.0 Unemployment, unspecified; Z88.0 Allergy status to penicillin; Z88.2 Allergy status to sulfonamides; Z88.8 Allergy status to other drugs, medicaments and biological substances; Z79.899 Other long term (current) drug therapy
CPT/HCPCS: 36415; 71045; 80053; 81003; 84484; 85025; 93005; 96374; 96375; 99285; J2060; J2765; J7030

== ENCOUNTER 2019-08-28 15:51 | Emergency (ER) | payer MEDICAID ==
[~2019-08-28] VITALS: Ht 160 cm; Wt 80.5 kg
[2019-08-28 16:33] LABS: BASOPHILS # (AUTO) 0.1 X10'3 (0-0.2); BASOPHILS % (AUTO) 1.2 % (0-1); EOSINOPHILS # (AUTO) 0.1 X10'3 (0-0.9); HEMATOCRIT 43.1 % (35.0-45.0); HEMOGLOBIN 14.5 g/dl (12.0-16.0); LYMPHOCYTES # (AUTO) 2.6 X10'3 (1.1-4.8); LYMPHOCYTES % (AUTO) 37.3 % (21-51); MEAN CORPUSCULAR HEMOGLOBIN 30.7 PG (27.0-31.0); MEAN CORPUSCULAR HGB CONC 33.6 g/dL (33.0-36.5); MEAN CORPUSCULAR VOLUME 91.5 FL (78-98); MEAN PLATELET VOLUME 8.4 FL (7.4-10.4); MONOCYTES # (AUTO) 0.4 X10'3 (0-0.9); MONOCYTES % (AUTO) 6.4 % (2-12); NEUTROPHILS # (AUTO) 3.8 X10'3 (1.8-7.7); NEUTROPHILS % (AUTO) 54.1 % (42-75); PLATELET COUNT 296 X10'3 (140-440); RED BLOOD COUNT 4.71 X10'6 (4.20-5.60); RED CELL DISTRIBUTION WIDTH 13.1 % (11.5-14.5)
[2019-08-28 16:49] LABS: ALANINE AMINOTRANSFERASE 25 U/L (12-78); ALBUMIN 3.9 G/DL (3.4-5.0); ALKALINE PHOSPHATASE 100 IU/L (46-116); ANION GAP 6 (8-16); ASPARTATE AMINO TRANSFERASE 29 U/L (10-37); BILIRUBIN,TOTAL 0.3 MG/DL (0.1-1.0); BLOOD UREA NITROGEN 16 MG/DL (7-18); BUN/CREATININE RATIO 19.3 (6.6-38.0); CALCIUM 10.2 MG/DL (8.5-10.1); CHLORIDE 104 MMOL/L (99-107); CREATININE 0.83 MG/DL (0.40-0.90); GLUCOSE 88 MG/DL (70-104); POTASSIUM 4.5 MMOL/L (3.5-5.1); SODIUM 139 MMOL/L (135-145); TOTAL CARBON DIOXIDE 28.8 MMOL/L (24-32); eGFR 71 ML/MIN
[2019-08-28 17:44] VITALS: BP 174/71
== END 2019-08-28 18:03 | disposition home or self-care (01) ==
LOC: ER 15:52
DX: R07.9 Chest pain, unspecified (principal); G43.909 Migraine, unspecified, not intractable, without status migrainosus; F41.9 Anxiety disorder, unspecified; Z86.19 Personal history of other infectious and parasitic diseases; Z87.442 Personal history of urinary calculi; Z87.440 Personal history of urinary (tract) infections; Z90.89 Acquired absence of other organs; Z90.710 Acquired absence of both cervix and uterus; Z98.890 Other specified postprocedural states; Z56.0 Unemployment, unspecified; Z88.1 Allergy status to other antibiotic agents; Z88.0 Allergy status to penicillin; Z88.2 Allergy status to sulfonamides; Z88.8 Allergy status to other drugs, medicaments and biological substances; Z79.899 Other long term (current) drug therapy
CPT/HCPCS: 36415; 71046; 80053; 84484; 85025; 93005; 99285

== ENCOUNTER 2019-09-02 08:42 | Emergency (ER) | payer MEDICAID ==
[~2019-09-02] VITALS: Ht 160 cm; Wt 79.5 kg
[2019-09-02] MEDS ORDERED: ondansetron/PF 4mg/2ml inj IV ONE (09:05)
--- NOTE | 2019-09-02 09:19 | NUR ---
tried to flush the iv ,but unable to ,pt requested for po zofran.notified dr langley regarding pt iv status and pt request.order to give po zofran.
[2019-09-02] MEDS ORDERED: ondansetron 4mg rapidly disintigrating tab PO ONE (09:25)
[2019-09-02 10:00] VITALS: BP 100/60
== END 2019-09-02 10:00 | disposition home or self-care (01) ==
LOC: ER 08:42
DX: R42 Dizziness and giddiness (principal); T45.0X5A Adverse effect of antiallergic and antiemetic drugs, initial encounter; R53.1 Weakness; R61 Generalized hyperhidrosis; R11.0 Nausea; G43.909 Migraine, unspecified, not intractable, without status migrainosus; F41.9 Anxiety disorder, unspecified; Z87.442 Personal history of urinary calculi; Z90.49 Acquired absence of other specified parts of digestive tract; Z90.710 Acquired absence of both cervix and uterus; Z56.0 Unemployment, unspecified; Z88.8 Allergy status to other drugs, medicaments and biological substances; Z88.0 Allergy status to penicillin; Z88.1 Allergy status to other antibiotic agents; Z79.899 Other long term (current) drug therapy; Y92.89 Other specified places as the place of occurrence of the external cause
CPT/HCPCS: 82948; 93005; 99284

== ENCOUNTER 2019-09-10 20:31 | Emergency (ER) | payer MEDICAID ==
[~2019-09-10] VITALS: Ht 160 cm; Wt 78.2 kg
[2019-09-10 21:04] VITALS: BP 109/74
[2019-09-10] MEDS ORDERED: CLON-369 (21:07)
[2019-09-10] MEDS ORDERED: ketorolac trometh inj. 60 MG/2 ML VIAL IM ONE (21:55)
[2019-09-10] MEDS ORDERED: SUMAtriptan succ. 6 MG/0.5ml vial SQ ONE (21:55)
[2019-09-10] MEDS ORDERED: SUMA50TA PO (22:00)
== END 2019-09-10 22:18 | disposition home or self-care (01) ==
LOC: ER 20:35
DX: G43.109 Migraine with aura, not intractable, without status migrainosus (principal); R11.0 Nausea; R42 Dizziness and giddiness; H53.8 Other visual disturbances; F41.9 Anxiety disorder, unspecified; Z86.19 Personal history of other infectious and parasitic diseases; Z87.442 Personal history of urinary calculi; Z87.440 Personal history of urinary (tract) infections; Z90.89 Acquired absence of other organs; Z90.710 Acquired absence of both cervix and uterus; Z98.890 Other specified postprocedural states; Z56.0 Unemployment, unspecified; Z88.1 Allergy status to other antibiotic agents; Z88.0 Allergy status to penicillin; Z88.2 Allergy status to sulfonamides; Z88.8 Allergy status to other drugs, medicaments and biological substances; Z79.899 Other long term (current) drug therapy
CPT/HCPCS: 93005; 96372; 99284; J1885; J3030

== ENCOUNTER 2019-09-15 17:49 | Emergency (ER) | payer MEDICAID ==
[~2019-09-15] VITALS: Ht 161.3 cm; Wt 77.9 kg
[~2019-09-15 17:49] MED LIST changes: +CLON-369; -OXYB5TAB16 PO; -PANT-47 PO; -PROC-8 PO; +SUMA50TA PO
[2019-09-15] MEDS ORDERED: morphine 10mg/ml inj. IV ONE (18:55)
[2019-09-15] MEDS ORDERED: ondansetron/PF 4mg/2ml inj IV ONE (18:55)
[2019-09-15] MEDS ORDERED: normal saline 1000ML IV soln IVB ONE (18:55)
[2019-09-15 19:02] LABS: URINE HCG NEGATIVE (NEG)
[2019-09-15 19:03] LABS: CLARITY,URINE CLEAR (Clear); COLOR,URINE YELLOW (Yellow); GLUCOSE, URINE NEGATIVE (Neg); KETONES,URINE NEGATIVE (Neg); LEUKOCYTE ESTERASE ,URINE NEGATIVE (Neg); NITRITES, URINE NEGATIVE (Neg); OCCULT BLOOD,URINE NEGATIVE (Neg); PH,URINE 5.5 (4.8-8.0); PROTEIN,URINE NEGATIVE (Neg); UROBILINOGEN,URINE 0.2 E.U/dL (0.2-1.0)
[2019-09-15 19:05] LABS: UA COLLECTION TYPE CLN CATCH MIDSTREAM
[2019-09-15 19:07] LABS: BASOPHILS # (AUTO) 0.1 X10'3 (0-0.2); BASOPHILS % (AUTO) 0.7 % (0-1); EOSINOPHILS % (AUTO) 0.5 % (0-6); HEMATOCRIT 39.1 % (35.0-45.0); LYMPHOCYTES # (AUTO) 3.7 X10'3 (1.1-4.8); LYMPHOCYTES % (AUTO) 39.5 % (21-51); MEAN CORPUSCULAR HEMOGLOBIN 30.3 PG (27.0-31.0); MEAN CORPUSCULAR HGB CONC 33.3 g/dL (33.0-36.5); MEAN CORPUSCULAR VOLUME 90.9 FL (78-98); MEAN PLATELET VOLUME 8.3 FL (7.4-10.4); MONOCYTES # (AUTO) 0.7 X10'3 (0-0.9); NEUTROPHILS # (AUTO) 4.9 X10'3 (1.8-7.7); NEUTROPHILS % (AUTO) 52.3 % (42-75); PLATELET COUNT 274 X10'3 (140-440); RED CELL DISTRIBUTION WIDTH 12.9 % (11.5-14.5); WHITE BLOOD COUNT 9.4 X10'3 (4.5-11.0)
[2019-09-15 19:24] LABS: ALANINE AMINOTRANSFERASE 24 U/L (12-78); ALBUMIN 3.6 G/DL (3.4-5.0); ALKALINE PHOSPHATASE 83 IU/L (46-116); ANION GAP 6 (8-16); ASPARTATE AMINO TRANSFERASE 20 U/L (10-37); BILIRUBIN,TOTAL 0.2 MG/DL (0.1-1.0); BLOOD UREA NITROGEN 23 MG/DL (7-18); BUN/CREATININE RATIO 25.6 (6.6-38.0); CALCIUM 9.1 MG/DL (8.5-10.1); CHLORIDE 107 MMOL/L (99-107); GLUCOSE 101 MG/DL (70-104); LIPASE 114 U/L (73-393); POTASSIUM 4.3 MMOL/L (3.5-5.1); SODIUM 141 MMOL/L (135-145); TOTAL CARBON DIOXIDE 28.3 MMOL/L (24-32); TOTAL PROTEIN 7.2 G/DL (6.4-8.2); eGFR 65 ML/MIN
[2019-09-15] MEDS ORDERED: fentaNYL/PF 50MCG/1 ML 2ML syringe IV ONE (19:35)
[2019-09-15] MEDS ORDERED: morphine 4 MG/ML inj SYRINge IM ONE (20:10)
[2019-09-15 20:26] VITALS: BP 106/57
== END 2019-09-15 20:36 | disposition home or self-care (01) ==
LOC: ER 17:49
DX: R10.11 Right upper quadrant pain (principal); G43.909 Migraine, unspecified, not intractable, without status migrainosus; F41.9 Anxiety disorder, unspecified; Z90.49 Acquired absence of other specified parts of digestive tract; Z90.710 Acquired absence of both cervix and uterus; Z90.89 Acquired absence of other organs; Z56.0 Unemployment, unspecified; Z88.8 Allergy status to other drugs, medicaments and biological substances; Z88.0 Allergy status to penicillin; Z88.2 Allergy status to sulfonamides; Z79.899 Other long term (current) drug therapy
CPT/HCPCS: 36415; 74176; 80053; 81003; 81025; 83690; 85025; 96372; 96374; 96375; 99284; J2270; J2405; J7030

== ENCOUNTER 2019-10-06 16:58 | Emergency (ER) | payer MEDICAID ==
[~2019-10-06] VITALS: Ht 162.6 cm; Wt 75.8 kg
[2019-10-06 17:51] LABS: CLARITY,URINE SLIGHTLY CLOUDY (Clear); COLOR,URINE STRAW (Yellow); GLUCOSE, URINE NEGATIVE (Neg); KETONES,URINE TRACE mg/dl (Neg); LEUKOCYTE ESTERASE ,URINE NEGATIVE (Neg); NITRITES, URINE NEGATIVE (Neg); OCCULT BLOOD,URINE TRACE-INTACT (Neg); PH,URINE 5.5 (4.8-8.0); PROTEIN,URINE NEGATIVE (Neg); URINE HCG NEGATIVE (NEG); UROBILINOGEN,URINE 0.2 E.U/dL (0.2-1.0)
[2019-10-06 17:52] LABS: UA COLLECTION TYPE CLN CATCH MIDSTREAM
[2019-10-06 17:58] LABS: SQUAMOUS EPITHELIAL CELL,UR MANY /LPF (FEW)
[2019-10-06 18:00] LABS: MUCUS STRANDS NONE SEEN /LPF (Neg)
[2019-10-06 18:01] LABS: BACTERIA,URINE 2+ /HPF (Neg); COARSE GRANULAR CAST 0-3 /LPF (NEGATIVE); RBC,URINE 0-2 /HPF (0-2); TRANSITIONAL EPI CELLS,URINE FEW /HPF; WBC,URINE 0-4 /HPF (0-4); YEAST MANY /HPF (NEGATIVE)
[2019-10-06 18:07] LABS: BASOPHILS % (AUTO) 0.5 % (0-1); EOSINOPHILS # (AUTO) 0.1 X10'3 (0-0.9); EOSINOPHILS % (AUTO) 0.6 % (0-6); HEMATOCRIT 41.2 % (35.0-45.0); HEMOGLOBIN 13.8 g/dl (12.0-16.0); LYMPHOCYTES % (AUTO) 34.9 % (21-51); MEAN CORPUSCULAR HEMOGLOBIN 30.6 PG (27.0-31.0); MEAN CORPUSCULAR HGB CONC 33.4 g/dL (33.0-36.5); MEAN CORPUSCULAR VOLUME 91.5 FL (78-98); MEAN PLATELET VOLUME 8.8 FL (7.4-10.4); MONOCYTES # (AUTO) 0.5 X10'3 (0-0.9); MONOCYTES % (AUTO) 5.4 % (2-12); NEUTROPHILS % (AUTO) 58.6 % (42-75); PLATELET COUNT 252 X10'3 (140-440); RED CELL DISTRIBUTION WIDTH 12.9 % (11.5-14.5); WHITE BLOOD COUNT 8.6 X10'3 (4.5-11.0)
[2019-10-06 18:23] LABS: ALANINE AMINOTRANSFERASE 28 U/L (12-78); ALBUMIN 3.7 G/DL (3.4-5.0); ALBUMIN/GLOBULIN RATIO 0.9 (1.1-1.5); ALKALINE PHOSPHATASE 71 IU/L (46-116); ANION GAP 9 (8-16); ASPARTATE AMINO TRANSFERASE 18 U/L (10-37); BILIRUBIN,TOTAL 0.3 MG/DL (0.1-1.0); BLOOD UREA NITROGEN 19 MG/DL (7-18); BUN/CREATININE RATIO 24.1 (6.6-38.0); CALCIUM 9.4 MG/DL (8.5-10.1); CHLORIDE 106 MMOL/L (99-107); CREATININE 0.79 MG/DL (0.40-0.90); GLUCOSE 94 MG/DL (70-104); POTASSIUM 4.5 MMOL/L (3.5-5.1); SODIUM 139 MMOL/L (135-145); TOTAL CARBON DIOXIDE 23.7 MMOL/L (24-32); TOTAL PROTEIN 7.6 G/DL (6.4-8.2); eGFR 75 ML/MIN
[2019-10-06 18:29] LABS: LIPASE 101 U/L (73-393)
[2019-10-06] MEDS ORDERED: LORazepam 2 mg/ml vial IV ONE (18:35)
[2019-10-06] MEDS ORDERED: proCHLORperazine 10 MG/2 ml inj IV ONE (18:35)
[2019-10-06] MEDS ORDERED: normal saline 1000ML IV soln IVB ONE (18:45)
[2019-10-06] MEDS ORDERED: ondansetron/PF 4mg/2ml inj IV ONE (19:10)
[2019-10-06 19:25] VITALS: BP 119/76
== END 2019-10-06 19:37 | disposition home or self-care (01) ==
LOC: ER 16:59
DX: R10.13 Epigastric pain (principal); R53.1 Weakness; K59.00 Constipation, unspecified; H53.8 Other visual disturbances; G43.909 Migraine, unspecified, not intractable, without status migrainosus; G89.29 Other chronic pain; F41.9 Anxiety disorder, unspecified; Z87.442 Personal history of urinary calculi; Z90.49 Acquired absence of other specified parts of digestive tract; Z90.710 Acquired absence of both cervix and uterus; Z56.0 Unemployment, unspecified; Z98.890 Other specified postprocedural states; Z88.8 Allergy status to other drugs, medicaments and biological substances; Z88.0 Allergy status to penicillin; Z88.2 Allergy status to sulfonamides; Z88.1 Allergy status to other antibiotic agents; Z79.899 Other long term (current) drug therapy
CPT/HCPCS: 36415; 80053; 81001; 81025; 83690; 84484; 85025; 93005; 96374; 99284; J2405; J7030

== ENCOUNTER 2019-12-07 07:43 | Emergency (ER) | payer MEDICAID ==
[~2019-12-07] VITALS: Ht 160 cm; Wt 73.3 kg
[~2019-12-07 07:43] MED LIST changes: -SUMA50TA PO
[2019-12-07] MEDS ORDERED: normal saline 1000ML IV soln IVB ONE (08:45)
[2019-12-07] MEDS ORDERED: ondansetron/PF 4mg/2ml inj IV ONE (08:45)
[2019-12-07 09:36] LABS: CLARITY,URINE SLIGHTLY CLOUDY (Clear); COLOR,URINE YELLOW (Yellow); GLUCOSE, URINE NEGATIVE (Neg); KETONES,URINE NEGATIVE (Neg); LEUKOCYTE ESTERASE ,URINE NEGATIVE (Neg); NITRITES, URINE NEGATIVE (Neg); OCCULT BLOOD,URINE NEGATIVE (Neg); PH,URINE 6.5 (4.8-8.0); PROTEIN,URINE NEGATIVE (Neg); UROBILINOGEN,URINE 0.2 E.U/dL (0.2-1.0)
[2019-12-07 10:02] LABS: UA COLLECTION TYPE CLN CATCH MIDSTREAM
[2019-12-07 10:03] LABS: SQUAMOUS EPITHELIAL CELL,UR MODERATE /LPF (FEW)
[2019-12-07 10:04] LABS: BACTERIA,URINE 1+ /HPF (Neg); RBC,URINE 0-2 /HPF (0-2); YEAST FEW /HPF (NEGATIVE)
[2019-12-07 10:05] LABS: WBC,URINE 0-4 /HPF (0-4)
[2019-12-07] MEDS ORDERED: ondansetron 4mg rapidly disintigrating tab PO ONE (10:05)
--- NOTE | 2019-12-07 10:05 | NUR ---
Unable to obtain IV access per staff, Patient reported that staff is not to place IV on left arm and right forearm. Two attempts were made by RN without success in right upper arm, Patient requesting only to attempt in breast. Spoke with Dr. Chavez regarding difficulty with initiating IV access, he gave verbal orders to change IV luz maria to Zofran 4 mg PO ODT once now and to discontinue to IV NS bolus of 1L. Patient is to attempt to take PO fluids and Lab is to obtain a blood draw. No PIV at this time. We will continue to monitor patient for PIV and IV medication need. Yesenia BARRERA aware of new orders.
[2019-12-07 10:23] LABS: BASOPHILS % (AUTO) 0.8 % (0-1); EOSINOPHILS # (AUTO) 0.1 X10'3 (0-0.9); HEMATOCRIT 37.9 % (35.0-45.0); HEMOGLOBIN 12.8 g/dl (12.0-16.0); LYMPHOCYTES # (AUTO) 2.1 X10'3 (1.1-4.8); LYMPHOCYTES % (AUTO) 36.6 % (21-51); MEAN CORPUSCULAR HEMOGLOBIN 30.5 PG (27.0-31.0); MEAN CORPUSCULAR HGB CONC 33.8 g/dL (33.0-36.5); MEAN CORPUSCULAR VOLUME 90.1 FL (78-98); MEAN PLATELET VOLUME 8.3 FL (7.4-10.4); MONOCYTES # (AUTO) 0.3 X10'3 (0-0.9); MONOCYTES % (AUTO) 6.1 % (2-12); NEUTROPHILS # (AUTO) 3.2 X10'3 (1.8-7.7); NEUTROPHILS % (AUTO) 55.5 % (42-75); PLATELET COUNT 238 X10'3 (140-440); RED CELL DISTRIBUTION WIDTH 13.2 % (11.5-14.5); WHITE BLOOD COUNT 5.8 X10'3 (4.5-11.0)
[2019-12-07 10:44] LABS: ALANINE AMINOTRANSFERASE 23 U/L (12-78); ALBUMIN 3.4 G/DL (3.4-5.0); ALBUMIN/GLOBULIN RATIO 0.9 (1.1-1.5); ALKALINE PHOSPHATASE 71 IU/L (46-116); ANION GAP 7 (8-16); ASPARTATE AMINO TRANSFERASE 20 U/L (10-37); BILIRUBIN,TOTAL 0.5 MG/DL (0.1-1.0); BLOOD UREA NITROGEN 15 MG/DL (7-18); BUN/CREATININE RATIO 22.4 (6.6-38.0); CALCIUM 8.7 MG/DL (8.5-10.1); CHLORIDE 107 MMOL/L (99-107); CREATININE 0.67 MG/DL (0.40-0.90); GLUCOSE 91 MG/DL (70-104); POTASSIUM 4.1 MMOL/L (3.5-5.1); SODIUM 140 MMOL/L (135-145); TOTAL CARBON DIOXIDE 26.4 MMOL/L (24-32); eGFR > 90 ML/MIN
[2019-12-07] MEDS ORDERED: ONDA4TAB6 PO (11:07)
[2019-12-07 11:44] VITALS: BP 105/70
== END 2019-12-07 11:46 | disposition home or self-care (01) ==
LOC: ER 07:44
DX: L73.9 Follicular disorder, unspecified (principal); R53.1 Weakness; G43.909 Migraine, unspecified, not intractable, without status migrainosus; F41.9 Anxiety disorder, unspecified; Z90.49 Acquired absence of other specified parts of digestive tract; Z90.710 Acquired absence of both cervix and uterus; Z98.890 Other specified postprocedural states; Z87.442 Personal history of urinary calculi; Z56.0 Unemployment, unspecified; Z88.8 Allergy status to other drugs, medicaments and biological substances; Z88.0 Allergy status to penicillin; Z88.2 Allergy status to sulfonamides; Z88.1 Allergy status to other antibiotic agents; Z79.899 Other long term (current) drug therapy
CPT/HCPCS: 36415; 80053; 81001; 84443; 85025; 99283

== ENCOUNTER 2019-12-09 15:07 | Emergency (ER) | payer MEDICAID ==
[~2019-12-09] VITALS: Ht 160 cm; Wt 72.7 kg
[~2019-12-09 15:07] MED LIST changes: +ONDA4TAB6 PO
[2019-12-09] MEDS ORDERED: normal saline 1000ML IV soln IVB ONE (15:30)
[2019-12-09 15:53] LABS: BASOPHILS % (AUTO) 0.5 % (0-1); EOSINOPHILS # (AUTO) 0.1 X10'3 (0-0.9); HEMATOCRIT 43.4 % (35.0-45.0); HEMOGLOBIN 14.5 g/dl (12.0-16.0); LYMPHOCYTES # (AUTO) 3.1 X10'3 (1.1-4.8); LYMPHOCYTES % (AUTO) 35.2 % (21-51); MEAN CORPUSCULAR HEMOGLOBIN 30.4 PG (27.0-31.0); MEAN CORPUSCULAR HGB CONC 33.4 g/dL (33.0-36.5); MEAN CORPUSCULAR VOLUME 90.9 FL (78-98); MEAN PLATELET VOLUME 8.4 FL (7.4-10.4); MONOCYTES # (AUTO) 0.4 X10'3 (0-0.9); MONOCYTES % (AUTO) 4.8 % (2-12); NEUTROPHILS # (AUTO) 5.1 X10'3 (1.8-7.7); NEUTROPHILS % (AUTO) 58.5 % (42-75); PLATELET COUNT 270 X10'3 (140-440); RED BLOOD COUNT 4.78 X10'6 (4.20-5.60); RED CELL DISTRIBUTION WIDTH 13.1 % (11.5-14.5); WHITE BLOOD COUNT 8.8 X10'3 (4.5-11.0)
[2019-12-09 16:08] LABS: ALANINE AMINOTRANSFERASE 26 U/L (12-78); ALBUMIN 3.9 G/DL (3.4-5.0); ALKALINE PHOSPHATASE 83 IU/L (46-116); ANION GAP 7 (8-16); ASPARTATE AMINO TRANSFERASE 18 U/L (10-37); BILIRUBIN,TOTAL 0.3 MG/DL (0.1-1.0); BLOOD UREA NITROGEN 20 MG/DL (7-18); BUN/CREATININE RATIO 28.6 (6.6-38.0); CALCIUM 9.3 MG/DL (8.5-10.1); CHLORIDE 105 MMOL/L (99-107); GLUCOSE 89 MG/DL (70-104); LIPASE 139 U/L (73-393); POTASSIUM 4.3 MMOL/L (3.5-5.1); SODIUM 137 MMOL/L (135-145); TOTAL CARBON DIOXIDE 25.3 MMOL/L (24-32); TOTAL PROTEIN 7.9 G/DL (6.4-8.2); eGFR 87 ML/MIN
[2019-12-09 16:49] LABS: COLOR,URINE STRAW (Yellow); GLUCOSE, URINE NEGATIVE (Neg); KETONES,URINE NEGATIVE (Neg); LEUKOCYTE ESTERASE ,URINE NEGATIVE (Neg); NITRITES, URINE NEGATIVE (Neg); OCCULT BLOOD,URINE NEGATIVE (Neg); PROTEIN,URINE NEGATIVE (Neg); UROBILINOGEN,URINE 0.2 E.U/dL (0.2-1.0)
[2019-12-09 16:57] LABS: CLARITY,URINE SLIGHTLY CLOUDY (Clear); UA COLLECTION TYPE CLN CATCH MIDSTREAM
--- NOTE | 2019-12-09 16:57 | NUR ---
Patient crying and upset. States she feels so weak and is now having lower abd pain. Patient able to self ambulated to bedside commode. Urine sample collected and sent to lab. Roger SEWELL at bedside and is okay with holding off on starting IV due to patient states she is hard stick and is very upset. Patient given warm blankets.
[2019-12-09] MEDS ORDERED: HYDROcodone/acetaminophen 10/325mg tab PO ONE (17:00)
[2019-12-09] MEDS ORDERED: proCHLORperazine 10mg tablet PO ONE (17:00)
[2019-12-09 17:01] LABS: WBC,URINE NONE SEEN /HPF (0-4)
[2019-12-09 17:02] LABS: BACTERIA,URINE 2+ /HPF (Neg); RBC,URINE NONE SEEN /HPF (0-2); SQUAMOUS EPITHELIAL CELL,UR MANY /LPF (FEW); YEAST MODERATE /HPF (NEGATIVE)
--- NOTE | 2019-12-09 17:12 | NUR ---
while administering the Kelly to patient. Patient decided last minute to only take half. Pharmacy notified, due to already saving administered full dose. Informed to make note and wast half in [facility].
[2019-12-09 17:46] VITALS: BP 127/79
== END 2019-12-09 17:40 | disposition home or self-care (01) ==
LOC: ER 15:08
DX: R53.1 Weakness (principal); R10.13 Epigastric pain; R11.0 Nausea; R63.0 Anorexia; G43.909 Migraine, unspecified, not intractable, without status migrainosus; F41.9 Anxiety disorder, unspecified; Z87.442 Personal history of urinary calculi; Z86.19 Personal history of other infectious and parasitic diseases; Z90.49 Acquired absence of other specified parts of digestive tract; Z90.710 Acquired absence of both cervix and uterus; Z98.890 Other specified postprocedural states; Z56.0 Unemployment, unspecified; Z88.8 Allergy status to other drugs, medicaments and biological substances; Z88.0 Allergy status to penicillin; Z88.2 Allergy status to sulfonamides; Z88.5 Allergy status to narcotic agent; Z88.1 Allergy status to other antibiotic agents; Z79.899 Other long term (current) drug therapy
CPT/HCPCS: 36415; 80053; 81001; 83690; 85025; 99283; Q0164

== ENCOUNTER 2020-02-18 05:29 | Emergency (ER) | payer MEDICAID ==
[~2020-02-18] VITALS: Ht 160 cm; Wt 72.3 kg
[2020-02-18 06:27] LABS: BASOPHILS % (AUTO) 0.5 % (0-1); EOSINOPHILS # (AUTO) 0.1 X10'3 (0-0.9); EOSINOPHILS % (AUTO) 0.7 % (0-6); HEMATOCRIT 41.4 % (35.0-45.0); HEMOGLOBIN 14.2 g/dl (12.0-16.0); LYMPHOCYTES # (AUTO) 2.8 X10'3 (1.1-4.8); LYMPHOCYTES % (AUTO) 38.6 % (21-51); MEAN CORPUSCULAR HEMOGLOBIN 31.3 PG (27.0-31.0); MEAN CORPUSCULAR HGB CONC 34.3 g/dL (33.0-36.5); MEAN CORPUSCULAR VOLUME 91.2 FL (78-98); MONOCYTES # (AUTO) 0.3 X10'3 (0-0.9); MONOCYTES % (AUTO) 4.7 % (2-12); NEUTROPHILS # (AUTO) 4.1 X10'3 (1.8-7.7); NEUTROPHILS % (AUTO) 55.5 % (42-75); PLATELET COUNT 257 X10'3 (140-440); RED BLOOD COUNT 4.54 X10'6 (4.20-5.60); RED CELL DISTRIBUTION WIDTH 13.1 % (11.5-14.5); WHITE BLOOD COUNT 7.3 X10'3 (4.5-11.0)
[2020-02-18 06:42] LABS: ALANINE AMINOTRANSFERASE 21 U/L (12-78); ALBUMIN 3.6 G/DL (3.4-5.0); ALBUMIN/GLOBULIN RATIO 0.8 (1.1-1.5); ALKALINE PHOSPHATASE 102 IU/L (46-116); ANION GAP 7 (8-16); ASPARTATE AMINO TRANSFERASE 16 U/L (10-37); BILIRUBIN,TOTAL 0.4 MG/DL (0.1-1.0); BLOOD UREA NITROGEN 12 MG/DL (7-18); BUN/CREATININE RATIO 14.3 (6.6-38.0); CALCIUM 9.3 MG/DL (8.5-10.1); CHLORIDE 107 MMOL/L (99-107); CREATININE 0.84 MG/DL (0.40-0.90); GLUCOSE 93 MG/DL (70-104); MAGNESIUM 2.2 MG/DL (1.5-2.4); POTASSIUM 4.7 MMOL/L (3.5-5.1); SODIUM 141 MMOL/L (135-145); TOTAL CARBON DIOXIDE 26.9 MMOL/L (24-32); TOTAL PROTEIN 7.9 G/DL (6.4-8.2); eGFR 70 ML/MIN
[2020-02-18] MEDS ORDERED: acetaminophen 325mg tablet PO ONE (07:05)
[2020-02-18] MEDS ORDERED: ketorolac trometh. 30mg/ml inj. IV ONE (07:05)
[2020-02-18] MEDS ORDERED: ondansetron/PF 4mg/2ml inj IV ONE (07:05)
[2020-02-18 08:17] VITALS: BP 96/65
== END 2020-02-18 08:21 | disposition home or self-care (01) ==
LOC: ER 05:29
DX: M79.18 Myalgia, other site (principal); R53.1 Weakness; M54.6 Pain in thoracic spine; G43.909 Migraine, unspecified, not intractable, without status migrainosus; F41.9 Anxiety disorder, unspecified; R00.1 Bradycardia, unspecified; Z87.442 Personal history of urinary calculi; Z90.49 Acquired absence of other specified parts of digestive tract; Z90.710 Acquired absence of both cervix and uterus; Z56.0 Unemployment, unspecified; Z88.8 Allergy status to other drugs, medicaments and biological substances; Z88.0 Allergy status to penicillin; Z79.899 Other long term (current) drug therapy
CPT/HCPCS: 36415; 71045; 80053; 83735; 84484; 85025; 93005; 96374; 96375; 99285; J1885; J2405

== ENCOUNTER 2020-02-26 13:47 | Emergency (ER) | payer MEDICAID ==
[~2020-02-26] VITALS: Ht 160 cm; Wt 70.5 kg
[2020-02-26] MEDS ORDERED: scopolamine 1.5mg patch.TD72 TD STA (14:04)
[2020-02-26] MEDS ORDERED: HYDROcodone/acetaminophen 10/325mg tab PO ONE (14:05)
[2020-02-26] MEDS ORDERED: MECL-159 PO (14:24)
[2020-02-26] MEDS ORDERED: dexamethasone 4mg tablet PO ONE (14:25)
[2020-02-26] MEDS ORDERED: LORazepam 1 MG tablet PO ONE (14:25)
[2020-02-26 15:24] VITALS: BP 105/63
== END 2020-02-26 15:25 | disposition home or self-care (01) ==
LOC: ER 13:47
DX: R42 Dizziness and giddiness (principal); F41.9 Anxiety disorder, unspecified; G43.909 Migraine, unspecified, not intractable, without status migrainosus; Z87.19 Personal history of other diseases of the digestive system; Z59.0 Homelessness; Z79.899 Other long term (current) drug therapy; Z90.49 Acquired absence of other specified parts of digestive tract; Z88.0 Allergy status to penicillin; Z88.2 Allergy status to sulfonamides
CPT/HCPCS: 99283

== ENCOUNTER 2020-04-26 03:53 | Emergency (ER) | payer MEDICAID ==
[~2020-04-26] VITALS: Ht 160 cm; Wt 71.8 kg
[~2020-04-26 03:53] MED LIST changes: +MECL-159 PO
[2020-04-26 04:47] LABS: ALANINE AMINOTRANSFERASE 61 U/L (12-78); ALBUMIN 3.2 G/DL (3.4-5.0); ALBUMIN/GLOBULIN RATIO 0.9 (1.1-1.5); ALKALINE PHOSPHATASE 102 IU/L (46-116); ANION GAP 8 (8-16); ASPARTATE AMINO TRANSFERASE 24 U/L (10-37); BILIRUBIN,TOTAL 0.3 MG/DL (0.1-1.0); BLOOD UREA NITROGEN 15 MG/DL (7-18); BUN/CREATININE RATIO 19.7 (6.6-38.0); CALCIUM 8.4 MG/DL (8.5-10.1); CHLORIDE 107 MMOL/L (99-107); CREATININE 0.76 MG/DL (0.40-0.90); GLUCOSE 118 MG/DL (70-104); SODIUM 141 MMOL/L (135-145); TOTAL CARBON DIOXIDE 26.2 MMOL/L (24-32); TOTAL PROTEIN 6.9 G/DL (6.4-8.2); eGFR 79 ML/MIN
[2020-04-26 04:55] LABS: TROPONIN I < 0.04 NG/ML (0.0-0.05)
[2020-04-26 06:00] LABS: BASOPHILS # (AUTO) 0.1 X10'3 (0-0.2); BASOPHILS % (AUTO) 0.9 % (0-1); EOSINOPHILS # (AUTO) 0.1 X10'3 (0-0.9); EOSINOPHILS % (AUTO) 0.9 % (0-6); HEMATOCRIT 37.3 % (35.0-45.0); HEMOGLOBIN 12.6 g/dl (12.0-16.0); LYMPHOCYTES # (AUTO) 2.7 X10'3 (1.1-4.8); LYMPHOCYTES % (AUTO) 34.2 % (21-51); MEAN CORPUSCULAR HEMOGLOBIN 30.6 PG (27.0-31.0); MEAN CORPUSCULAR HGB CONC 33.7 g/dL (33.0-36.5); MEAN CORPUSCULAR VOLUME 90.8 FL (78-98); MONOCYTES # (AUTO) 0.5 X10'3 (0-0.9); MONOCYTES % (AUTO) 6.2 % (2-12); NEUTROPHILS # (AUTO) 4.5 X10'3 (1.8-7.7); NEUTROPHILS % (AUTO) 57.8 % (42-75); PLATELET COUNT 268 X10'3 (140-440); RED BLOOD COUNT 4.11 X10'6 (4.20-5.60); WHITE BLOOD COUNT 7.8 X10'3 (4.5-11.0)
[2020-04-26 06:36] VITALS: BP 93/58
[2020-04-26 08:26] LABS: LIPASE 82 U/L (73-393)
== END 2020-04-26 09:18 | disposition home or self-care (01) ==
LOC: ER 03:54
DX: R07.89 Other chest pain (principal); G43.909 Migraine, unspecified, not intractable, without status migrainosus; Z87.19 Personal history of other diseases of the digestive system; Z87.440 Personal history of urinary (tract) infections; Z87.442 Personal history of urinary calculi; Z90.49 Acquired absence of other specified parts of digestive tract; Z98.891 History of uterine scar from previous surgery; Z90.710 Acquired absence of both cervix and uterus; Z56.0 Unemployment, unspecified; Z88.0 Allergy status to penicillin; Z88.1 Allergy status to other antibiotic agents; Z88.2 Allergy status to sulfonamides; Z88.8 Allergy status to other drugs, medicaments and biological substances; Z79.899 Other long term (current) drug therapy
CPT/HCPCS: 36415; 71045; 80053; 83690; 83880; 84484; 85025; 93005; 99285

== ENCOUNTER 2020-05-20 15:53 | Emergency (ER) | payer MEDICAID ==
[~2020-05-20] VITALS: Ht 160 cm; Wt 73.6 kg
[2020-05-20 17:00] LABS: BASOPHILS # (AUTO) 0.1 X10'3 (0-0.2); BASOPHILS % (AUTO) 0.7 % (0-1); EOSINOPHILS # (AUTO) 0.1 X10'3 (0-0.9); EOSINOPHILS % (AUTO) 1.5 % (0-6); HEMATOCRIT 39.7 % (35.0-45.0); HEMOGLOBIN 13.4 g/dl (12.0-16.0); LYMPHOCYTES # (AUTO) 3.7 X10'3 (1.1-4.8); LYMPHOCYTES % (AUTO) 54.3 % (21-51); MEAN CORPUSCULAR HEMOGLOBIN 30.4 PG (27.0-31.0); MEAN CORPUSCULAR HGB CONC 33.7 g/dL (33.0-36.5); MEAN CORPUSCULAR VOLUME 90.3 FL (78-98); MEAN PLATELET VOLUME 7.8 FL (7.4-10.4); MONOCYTES # (AUTO) 0.4 X10'3 (0-0.9); MONOCYTES % (AUTO) 5.9 % (2-12); NEUTROPHILS # (AUTO) 2.6 X10'3 (1.8-7.7); NEUTROPHILS % (AUTO) 37.6 % (42-75); PLATELET COUNT 278 X10'3 (140-440); RED CELL DISTRIBUTION WIDTH 12.8 % (11.5-14.5); WHITE BLOOD COUNT 6.8 X10'3 (4.5-11.0)
[2020-05-20 17:06] LABS: CLARITY,URINE CLEAR (Clear); COLOR,URINE YELLOW (Yellow); GLUCOSE, URINE NEGATIVE (Neg); KETONES,URINE NEGATIVE (Neg); LEUKOCYTE ESTERASE ,URINE NEGATIVE (Neg); NITRITES, URINE NEGATIVE (Neg); OCCULT BLOOD,URINE NEGATIVE (Neg); PH,URINE 5.5 (4.8-8.0); PROTEIN,URINE NEGATIVE (Neg); UROBILINOGEN,URINE 0.2 E.U/dL (0.2-1.0)
[2020-05-20 17:07] LABS: UA COLLECTION TYPE CLN CATCH MIDSTREAM
[2020-05-20 17:09] LABS: ALBUMIN 3.6 G/DL (3.4-5.0); ALKALINE PHOSPHATASE 83 IU/L (46-116); ANION GAP 7 (8-16); ASPARTATE AMINO TRANSFERASE 17 U/L (10-37); BILIRUBIN,TOTAL 0.2 MG/DL (0.1-1.0); BLOOD UREA NITROGEN 13 MG/DL (7-18); BUN/CREATININE RATIO 18.1 (6.6-38.0); CALCIUM 8.9 MG/DL (8.5-10.1); CHLORIDE 107 MMOL/L (99-107); CREATININE 0.72 MG/DL (0.40-0.90); GLUCOSE 92 MG/DL (70-104); POTASSIUM 4.5 MMOL/L (3.5-5.1); SODIUM 141 MMOL/L (135-145); TOTAL CARBON DIOXIDE 26.7 MMOL/L (24-32); TOTAL PROTEIN 7.3 G/DL (6.4-8.2); eGFR 84 ML/MIN
[2020-05-20 17:18] LABS: ALANINE AMINOTRANSFERASE 26 U/L (12-78)
--- NOTE | 2020-05-20 18:09 | NUR ---
DONATO Vasquez and bedside to discuss results of tests.
[2020-05-20 18:24] VITALS: BP 128/87
== END 2020-05-20 18:28 | disposition home or self-care (01) ==
LOC: ER 15:55
DX: R10.2 Pelvic and perineal pain (principal); R39.89 Other symptoms and signs involving the genitourinary system; R35.0 Frequency of micturition; G43.909 Migraine, unspecified, not intractable, without status migrainosus; Z86.19 Personal history of other infectious and parasitic diseases; Z87.440 Personal history of urinary (tract) infections; Z87.442 Personal history of urinary calculi; Z90.49 Acquired absence of other specified parts of digestive tract; Z98.891 History of uterine scar from previous surgery; Z90.710 Acquired absence of both cervix and uterus; Z56.0 Unemployment, unspecified; Z88.0 Allergy status to penicillin; Z88.2 Allergy status to sulfonamides; Z88.1 Allergy status to other antibiotic agents; Z88.8 Allergy status to other drugs, medicaments and biological substances; Z79.899 Other long term (current) drug therapy
CPT/HCPCS: 76775; 80053; 81003; 85025; 99284

== ENCOUNTER 2020-10-12 12:11 | Emergency (ER) | payer MEDICAID ==
[~2020-10-12] VITALS: Ht 162.6 cm; Wt 75.0 kg
[2020-10-12 12:17] VITALS: BP 111/67
== END 2020-10-12 15:54 | disposition home or self-care (01) ==
LOC: ER 12:11
DX: M79.605 Pain in left leg (principal); G43.909 Migraine, unspecified, not intractable, without status migrainosus; F41.9 Anxiety disorder, unspecified; Z86.19 Personal history of other infectious and parasitic diseases; Z87.442 Personal history of urinary calculi; Z87.440 Personal history of urinary (tract) infections; Z90.89 Acquired absence of other organs; Z90.710 Acquired absence of both cervix and uterus; Z98.890 Other specified postprocedural states; Z56.0 Unemployment, unspecified; Z88.8 Allergy status to other drugs, medicaments and biological substances; Z88.2 Allergy status to sulfonamides; Z88.0 Allergy status to penicillin; Z88.1 Allergy status to other antibiotic agents; Z79.899 Other long term (current) drug therapy
CPT/HCPCS: 93971; 99284

== ENCOUNTER 2021-08-12 08:23 | Emergency (ER) | payer MEDICAID ==
[~2021-08-12] VITALS: Ht 162.6 cm; Wt 76.8 kg
[2021-08-12 08:46] VITALS: BP 124/71
[2021-08-12] MEDS ORDERED: orphenadrine citrate 60mg/2ml inj. IM ONE (09:45)
[2021-08-12] MEDS ORDERED: ondansetron 4mg rapidly disintigrating tab PO ONE (09:45)
[2021-08-12] MEDS ORDERED: morphine 10mg/ml inj. IM ONE (09:45)
[2021-08-12] MEDS ORDERED: ketorolac trometh. 30mg/ml inj. IM ONE (09:45)
== END 2021-08-12 10:51 | disposition home or self-care (01) ==
LOC: ER 08:23
DX: S39.012A Strain of muscle, fascia and tendon of lower back, initial encounter (principal); G43.909 Migraine, unspecified, not intractable, without status migrainosus; F41.9 Anxiety disorder, unspecified; Z86.19 Personal history of other infectious and parasitic diseases; Z87.442 Personal history of urinary calculi; Z87.440 Personal history of urinary (tract) infections; Z90.89 Acquired absence of other organs; Z90.710 Acquired absence of both cervix and uterus; Z98.890 Other specified postprocedural states; Z56.0 Unemployment, unspecified; Z88.8 Allergy status to other drugs, medicaments and biological substances; Z88.0 Allergy status to penicillin; Z88.2 Allergy status to sulfonamides; Z88.1 Allergy status to other antibiotic agents; Z79.899 Other long term (current) drug therapy; X58.XXXA Exposure to other specified factors, initial encounter; Y93.89 Activity, other specified; Y92.89 Other specified places as the place of occurrence of the external cause; Y99.8 Other external cause status
CPT/HCPCS: 96372; 99284; J1885; J2274; J2360

== ENCOUNTER 2021-08-26 07:17 | Emergency (ER) | payer MEDICAID ==
[~2021-08-26] VITALS: Ht 162.6 cm; Wt 77.3 kg
[2021-08-26 07:18] VITALS: BP 121/98
--- NOTE | 2021-08-26 07:42 | NUR ---
Dr. Barrera at bedside.
[2021-08-26] MEDS ORDERED: ondansetron 4mg rapidly disintigrating tab PO ONE (07:45)
[2021-08-26] MEDS ORDERED: orphenadrine citrate 60mg/2ml inj. IM ONE ×2 (07:45→08:00)
[2021-08-26] MEDS ORDERED: morphine 4 MG/ML inj SYRINge IM ONE ×2 (07:45→08:00)
[2021-08-26] MEDS ORDERED: acetaminophen 325mg tablet PO ONE (07:45)
[2021-08-26] MEDS ORDERED: ketorolac trometh inj. 60 MG/2 ML VIAL IM ONE (07:45)
[2021-08-26] MEDS ORDERED: morphine 2 MG/ML inj. syringe IM ONE (08:00)
== END 2021-08-26 08:40 | disposition home or self-care (01) ==
LOC: ER 07:18
DX: G89.29 Other chronic pain (principal); M54.9 Dorsalgia, unspecified; M54.59 Other low back pain; G43.909 Migraine, unspecified, not intractable, without status migrainosus; Z87.442 Personal history of urinary calculi; F41.9 Anxiety disorder, unspecified; Z88.0 Allergy status to penicillin; Z79.899 Other long term (current) drug therapy; Z88.2 Allergy status to sulfonamides; Z88.1 Allergy status to other antibiotic agents; Z88.8 Allergy status to other drugs, medicaments and biological substances
CPT/HCPCS: 96372; 99284; J1885; J2270; J2360

== ENCOUNTER 2021-09-01 06:52 | Emergency (ER) | payer MEDICAID ==
[~2021-09-01] VITALS: Ht 162.6 cm; Wt 75.2 kg
[2021-09-01 07:22] VITALS: BP 124/76
--- NOTE | 2021-09-01 08:18 | NUR ---
PT LEFT THE ER WITHOUT ANY TREATMENT AND ASSESSMENT ,PT STATED THAT "THIS DR DOESN'T WANT TO HELP ME AND I WANT TO LEAVE".NOTIFIED CHARGE JOSE J AND DR SUMMERS.
== END 2021-09-01 08:22 | disposition home or self-care (01) ==
LOC: ER 06:53
DX: M54.50 Low back pain, unspecified (principal); G89.29 Other chronic pain; R51.9 Headache, unspecified
CPT/HCPCS: 99281

== ENCOUNTER 2021-12-26 08:37 | Emergency (ER) | payer MEDICAID ==
[~2021-12-26] VITALS: Ht 162.6 cm; Wt 75.0 kg
[2021-12-26 11:21] VITALS: BP 106/55
[2021-12-26] MEDS ORDERED: mag hydrox/Alum hydrox/simeth 30ml oral suspension PO ONE (12:10)
[2021-12-26] MEDS ORDERED: LIDOcaine Viscous 15ml cup MM ONE (12:10)
[2021-12-26] MEDS ORDERED: ESOM20CA PO (13:23)
== END 2021-12-26 13:46 | disposition home or self-care (01) ==
LOC: ER 08:38
DX: K29.70 Gastritis, unspecified, without bleeding (principal); G43.909 Migraine, unspecified, not intractable, without status migrainosus; G89.29 Other chronic pain; M54.50 Low back pain, unspecified; Z88.0 Allergy status to penicillin; Z88.2 Allergy status to sulfonamides; Z88.8 Allergy status to other drugs, medicaments and biological substances; Z98.890 Other specified postprocedural states; Z90.710 Acquired absence of both cervix and uterus; Z56.0 Unemployment, unspecified
CPT/HCPCS: 93005; 99283

== ENCOUNTER 2022-04-02 06:55 | Emergency (ER) | payer MEDICAID ==
--- NOTE | 2022-04-02 10:51 | NUR ---
n/a [id number], [id number], [id number]
== END 2022-04-02 10:53 | disposition left against medical advice (07) ==
LOC: ER 06:56
DX: Z00.00 Encounter for general adult medical examination without abnormal findings (principal); Z53.21 Procedure and treatment not carried out due to patient leaving prior to being seen by health care provider

== ENCOUNTER 2023-06-24 10:13 | Emergency (ER) | payer MEDICAID ==
[~2023-06-24] VITALS: Ht 162.6 cm; Wt 76.5 kg
[~2023-06-24 10:13] MED LIST changes: -MECL-159 PO; +MECL-302 PO
[2023-06-24 11:47] LABS: BASOPHILS % (AUTO) 0.4 % (0-1); EOSINOPHILS # (AUTO) 0.1 X10'3 (0-0.9); HEMATOCRIT 40.5 % (35.0-45.0); HEMOGLOBIN 13.8 g/dl (12.0-16.0); LYMPHOCYTES # (AUTO) 2.4 X10'3 (1.1-4.8); LYMPHOCYTES % (AUTO) 34.7 % (21-51); MEAN CORPUSCULAR HEMOGLOBIN 31.1 PG (27.0-31.0); MEAN CORPUSCULAR HGB CONC 34.2 g/dL (33.0-36.5); MEAN PLATELET VOLUME 7.8 FL (7.4-10.4); MONOCYTES # (AUTO) 0.5 X10'3 (0-0.9); MONOCYTES % (AUTO) 7.4 % (2-12); NEUTROPHILS # (AUTO) 3.9 X10'3 (1.8-7.7); NEUTROPHILS % (AUTO) 56.5 % (42-75); PLATELET COUNT 279 X10'3 (140-440); RED BLOOD COUNT 4.45 X10'6 (4.20-5.60); RED CELL DISTRIBUTION WIDTH 13.2 % (11.5-14.5); WHITE BLOOD COUNT 6.9 X10'3 (4.5-11.0)
[2023-06-24 11:54] VITALS: TEMP 98
[2023-06-24 12:21] LABS: PRO BRAIN NATRIURETIC PEPTIDE 43 PG/ML (0-125)
[2023-06-24 13:22] VITALS: BP 99/67; PULSE 57; RESP 11; O2SAT 96
== END 2023-06-24 13:42 | disposition home or self-care (01) ==
LOC: ER 10:13
DX: R07.9 Chest pain, unspecified (principal); R00.2 Palpitations
CPT/HCPCS: 36415; 71045; 83880; 84484; 85025; 93005; 99285

== ENCOUNTER 2023-08-28 08:30 | Outpatient (CLI) | payer MEDICAID | END 2023-08-28 23:59 | disposition home or self-care (01) | LOC: RAD 08:30 | PROVIDERS: ATTEND General Practice | DX: K58.9 Irritable bowel syndrome, unspecified (principal); K90.49 Malabsorption due to intolerance, not elsewhere classified; K86.1 Other chronic pancreatitis; R10.31 Right lower quadrant pain; R13.10 Dysphagia, unspecified; K80.20 Calculus of gallbladder without cholecystitis without obstruction; K86.81 Exocrine pancreatic insufficiency; R10.9 Unspecified abdominal pain; F43.0 Acute stress reaction; R11.2 Nausea with vomiting, unspecified; A09 Infectious gastroenteritis and colitis, unspecified | CPT/HCPCS: 76700 ==

== ENCOUNTER 2023-11-19 14:37 | Outpatient (CLI) | payer MEDICAID | END 2023-11-19 23:59 | disposition home or self-care (01) | LOC: MRI 14:37 | PROVIDERS: ATTEND Nurse Practitioner Adult Health | DX: M51.25 Other intervertebral disc displacement, thoracolumbar region (principal); M47.816 Spondylosis without myelopathy or radiculopathy, lumbar region; M41.9 Scoliosis, unspecified; R07.81 Pleurodynia | CPT/HCPCS: 72146 ==

== ENCOUNTER 2023-12-23 15:35 | Emergency (ER) | payer MEDICAID ==
[~2023-12-23] VITALS: Ht 162.6 cm; Wt 76.0 kg
[2023-12-23 15:42] VITALS: TEMP 98.4
[2023-12-23 15:52] LABS: BASOPHILS # (AUTO) 0.1 X10'3 (0-0.2); BASOPHILS % (AUTO) 0.7 % (0-1); EOSINOPHILS % (AUTO) 0.4 % (0-6); HEMATOCRIT 40.8 % (35.0-45.0); HEMOGLOBIN 13.5 g/dl (12.0-16.0); LYMPHOCYTES # (AUTO) 3.2 X10'3 (1.1-4.8); LYMPHOCYTES % (AUTO) 37.8 % (21-51); MEAN CORPUSCULAR HEMOGLOBIN 30.4 PG (27.0-31.0); MEAN CORPUSCULAR HGB CONC 33.1 g/dL (33.0-36.5); MEAN CORPUSCULAR VOLUME 91.8 FL (78-98); MEAN PLATELET VOLUME 7.7 FL (7.4-10.4); MONOCYTES # (AUTO) 0.6 X10'3 (0-0.9); NEUTROPHILS # (AUTO) 4.6 X10'3 (1.8-7.7); NEUTROPHILS % (AUTO) 54.1 % (42-75); PLATELET COUNT 261 X10'3 (140-440); RED BLOOD COUNT 4.44 X10'6 (4.20-5.60); WHITE BLOOD COUNT 8.4 X10'3 (4.5-11.0)
[2023-12-23 16:06] LABS: ALANINE AMINOTRANSFERASE 25 U/L (12-78); ALBUMIN 3.5 G/DL (3.4-5.0); ALBUMIN/GLOBULIN RATIO 0.9 (1.1-1.5); ALKALINE PHOSPHATASE 83 IU/L (46-116); ANION GAP 7 (8-16); ASPARTATE AMINO TRANSFERASE 18 U/L (10-37); BILIRUBIN,TOTAL 0.2 MG/DL (0.1-1.0); BLOOD UREA NITROGEN 18 MG/DL (7-18); BUN/CREATININE RATIO 24.7 (10.0-20.0); CALCIUM 8.6 MG/DL (8.5-10.1); CHLORIDE 105 MMOL/L (99-107); CREATININE 0.73 MG/DL (0.40-0.90); GLUCOSE 110 MG/DL (70-104); POTASSIUM 3.9 MMOL/L (3.5-5.1); SODIUM 139 MMOL/L (135-145); TOTAL CARBON DIOXIDE 27.4 MMOL/L (24-32); TOTAL PROTEIN 7.2 G/DL (6.4-8.2); eCRCL 71 ML/MIN; eGFR 81 ML/MIN
[2023-12-23 16:14] LABS: PRO BRAIN NATRIURETIC PEPTIDE < 30 PG/ML (0-125)
[2023-12-23 17:17] VITALS: BP 123/76; PULSE 58; RESP 16; O2SAT 99
== END 2023-12-23 17:21 | disposition home or self-care (01) ==
LOC: ER 15:35
DX: R07.89 Other chest pain (principal); G43.909 Migraine, unspecified, not intractable, without status migrainosus; F41.9 Anxiety disorder, unspecified; G89.29 Other chronic pain; I10 Essential (primary) hypertension; Z88.8 Allergy status to other drugs, medicaments and biological substances; Z88.0 Allergy status to penicillin; Z88.2 Allergy status to sulfonamides; Z79.899 Other long term (current) drug therapy; Z98.890 Other specified postprocedural states; Z90.710 Acquired absence of both cervix and uterus; Z90.49 Acquired absence of other specified parts of digestive tract; Z88.1 Allergy status to other antibiotic agents; Z88.5 Allergy status to narcotic agent
CPT/HCPCS: 36415; 71045; 80053; 83880; 84484; 85025; 93005; 99285

== ENCOUNTER 2024-01-16 02:40 | Emergency (ER) | payer MEDICAID ==
[~2024-01-16] VITALS: Ht 162.6 cm; Wt 74.8 kg
[2024-01-16 02:45] VITALS: TEMP 97.9; O2SAT 97
[2024-01-16] MEDS ORDERED: morphine 4 MG/ML inj SYRINge IV ONE (03:10)
[2024-01-16] MEDS: ondansetron/PF 4mg/2ml inj IV ONE (04:05)
[2024-01-16] MEDS: morphine 2 MG/ML inj. syringe IV STA (04:08)
[2024-01-16 04:10] LABS: BASOPHILS % (AUTO) 0.5 % (0-1); EOSINOPHILS % (AUTO) 0.2 % (0-6); HEMOGLOBIN 12.8 g/dl (12.0-16.0); LYMPHOCYTES # (AUTO) 3.1 X10'3 (1.1-4.8); LYMPHOCYTES % (AUTO) 42.5 % (21-51); MEAN CORPUSCULAR HEMOGLOBIN 31.2 PG (27.0-31.0); MEAN CORPUSCULAR HGB CONC 33.6 g/dL (33.0-36.5); MEAN CORPUSCULAR VOLUME 92.8 FL (78-98); MEAN PLATELET VOLUME 7.8 FL (7.4-10.4); MONOCYTES # (AUTO) 0.5 X10'3 (0-0.9); MONOCYTES % (AUTO) 6.5 % (2-12); NEUTROPHILS # (AUTO) 3.7 X10'3 (1.8-7.7); NEUTROPHILS % (AUTO) 50.3 % (42-75); PLATELET COUNT 237 X10'3 (140-440); RED CELL DISTRIBUTION WIDTH 13.1 % (11.5-14.5); WHITE BLOOD COUNT 7.4 X10'3 (4.5-11.0)
[2024-01-16] MEDS: normal saline 1000ml 1,000 ML IV ONE (04:11)
[2024-01-16 04:24] LABS: ALANINE AMINOTRANSFERASE 22 U/L (12-78); ALBUMIN 3.2 G/DL (3.4-5.0); ALKALINE PHOSPHATASE 60 IU/L (46-116); ANION GAP 6 (8-16); ASPARTATE AMINO TRANSFERASE 31 U/L (10-37); BILIRUBIN,TOTAL 0.3 MG/DL (0.1-1.0); BLOOD UREA NITROGEN 17 MG/DL (7-18); CALCIUM 8.5 MG/DL (8.5-10.1); CHLORIDE 108 MMOL/L (99-107); CREATININE 0.74 MG/DL (0.40-0.90); GLUCOSE 84 MG/DL (70-104); LIPASE 41 U/L (16-77); POTASSIUM 3.8 MMOL/L (3.5-5.1); SODIUM 140 MMOL/L (135-145); TOTAL CARBON DIOXIDE 25.9 MMOL/L (24-32); TOTAL PROTEIN 6.5 G/DL (6.4-8.2); eCRCL 70 ML/MIN; eGFR 80 ML/MIN
[2024-01-16] MEDS ORDERED: iohexol 300mg/ml 100ml inj. ONE (04:27)
[2024-01-16] MEDS: morphine 4 MG/ML inj SYRINge IV ONE (05:19)
[2024-01-16] MEDS ORDERED: GOLYS PO (05:44)
[2024-01-16 05:58] VITALS: BP 114/64; PULSE 68; RESP 16
[2024-01-16 06:47] LABS: BILIRUBIN,URINE NEGATIVE (Neg); CLARITY,URINE CLEAR (Clear); COLOR,URINE YELLOW (Yellow); GLUCOSE, URINE NEGATIVE (Neg); KETONES,URINE NEGATIVE (Neg); LEUKOCYTE ESTERASE ,URINE NEGATIVE (Neg); NITRITES, URINE NEGATIVE (Neg); OCCULT BLOOD,URINE TRACE-INTACT (Neg); PROTEIN,URINE NEGATIVE (Neg); UROBILINOGEN,URINE 0.2 E.U/dL (0.2-1.0)
[2024-01-16 07:03] LABS: UA COLLECTION TYPE CLN CATCH MIDSTREAM
[2024-01-16 07:04] LABS: WBC,URINE 0-4 /HPF (0-4)
[2024-01-16 07:05] LABS: BACTERIA,URINE NONE SEEN /HPF (Neg); MUCUS STRANDS FEW /LPF (Neg); SQUAMOUS EPITHELIAL CELL,UR FEW /LPF (FEW)
== END 2024-01-16 06:01 | disposition home or self-care (01) ==
LOC: ER 02:41
DX: K59.00 Constipation, unspecified (principal); G89.29 Other chronic pain; M54.9 Dorsalgia, unspecified; G43.909 Migraine, unspecified, not intractable, without status migrainosus; F41.9 Anxiety disorder, unspecified; Z88.0 Allergy status to penicillin; Z88.8 Allergy status to other drugs, medicaments and biological substances; Z88.1 Allergy status to other antibiotic agents; Z88.2 Allergy status to sulfonamides; Z90.49 Acquired absence of other specified parts of digestive tract; Z90.710 Acquired absence of both cervix and uterus; Z87.442 Personal history of urinary calculi; Z56.0 Unemployment, unspecified
CPT/HCPCS: 36415; 74177; 80053; 81001; 83690; 84145; 85025; 96361; 96374; 96375; 96376; 99285; J2270; J2405; J7030; Q9967

== ENCOUNTER 2024-01-23 05:30 | Emergency (ER) | payer MEDICAID ==
[~2024-01-23] VITALS: Ht 162.6 cm; Wt 75.0 kg
[~2024-01-23 05:30] MED LIST changes: +GOLYS PO
[2024-01-23 05:45] VITALS: TEMP 98.7
[2024-01-23] MEDS: ketorolac trometh 30MG/ML vial 30 MG/ML VIAL IM ONE (06:12)
[2024-01-23 06:43] VITALS: BP 103/76; PULSE 62; O2SAT 96
[2024-01-23 06:44] VITALS: RESP 16
== END 2024-01-23 06:46 | disposition home or self-care (01) ==
LOC: ER 05:30
DX: G43.909 Migraine, unspecified, not intractable, without status migrainosus (principal); F41.9 Anxiety disorder, unspecified; G89.29 Other chronic pain; M54.9 Dorsalgia, unspecified; Z88.2 Allergy status to sulfonamides; Z88.0 Allergy status to penicillin; Z88.8 Allergy status to other drugs, medicaments and biological substances; Z88.1 Allergy status to other antibiotic agents; Z79.899 Other long term (current) drug therapy; Z90.49 Acquired absence of other specified parts of digestive tract; Z90.710 Acquired absence of both cervix and uterus; Z56.0 Unemployment, unspecified; Z98.890 Other specified postprocedural states; Z87.442 Personal history of urinary calculi
CPT/HCPCS: 96372; 99284; J1885

== ENCOUNTER 2024-01-25 07:39 | Emergency (ER) | payer MEDICAID ==
[~2024-01-25] VITALS: Ht 162.6 cm; Wt 74.8 kg
[2024-01-25] MEDS: acetaminophen 1,000mg/100ml IV 100 ML IV SCH (07:50)
[2024-01-25] MEDS: diphenhydrAMINE 50 mg/ml inj IV ONE (08:10)
[2024-01-25] MEDS: normal saline 1000ml 1,000 ML IV ONE (08:10)
[2024-01-25] MEDS: ketorolac trometh 15mg/ml vial 15 MG/ML ML IV ONE (08:11)
[2024-01-25] MEDS: ketorolac trometh 15mg/ml vial 15 MG/ML ML IM ONE ×2 (08:15→08:38)
[2024-01-25 08:41] VITALS: BP 111/75; PULSE 80; RESP 16; TEMP 98.1; O2SAT 97
== END 2024-01-25 08:42 | disposition home or self-care (01) ==
LOC: ER 07:39
DX: R51.9 Headache, unspecified (principal); G89.29 Other chronic pain; Z88.0 Allergy status to penicillin; Z88.1 Allergy status to other antibiotic agents; Z88.2 Allergy status to sulfonamides; Z88.5 Allergy status to narcotic agent; Z88.8 Allergy status to other drugs, medicaments and biological substances; Z87.440 Personal history of urinary (tract) infections; Z90.49 Acquired absence of other specified parts of digestive tract; Z90.710 Acquired absence of both cervix and uterus
CPT/HCPCS: 96372; 99284; J1885; J7030

== ENCOUNTER 2024-03-19 09:06 | Emergency (ER) | payer MEDICAID ==
[~2024-03-19] VITALS: Ht 162.6 cm; Wt 75.5 kg
[2024-03-19 09:35] LABS: BILIRUBIN,URINE NEGATIVE (Neg); CLARITY,URINE CLEAR (Clear); COLOR,URINE YELLOW (Yellow); GLUCOSE, URINE NEGATIVE (Neg); KETONES,URINE NEGATIVE (Neg); LEUKOCYTE ESTERASE ,URINE NEGATIVE (Neg); NITRITES, URINE NEGATIVE (Neg); OCCULT BLOOD,URINE NEGATIVE (Neg); PH,URINE 5.5 (4.8-8.0); PROTEIN,URINE NEGATIVE (Neg); UROBILINOGEN,URINE 0.2 E.U/dL (0.2-1.0)
[2024-03-19 09:36] LABS: UA COLLECTION TYPE CLN CATCH MIDSTREAM
[2024-03-19 09:37] LABS: BASOPHILS # (AUTO) 0.1 X10'3 (0-0.2); BASOPHILS % (AUTO) 1.1 % (0-1); EOSINOPHILS # (AUTO) 0.1 X10'3 (0-0.9); EOSINOPHILS % (AUTO) 0.8 % (0-6); HEMATOCRIT 39.6 % (35.0-45.0); HEMOGLOBIN 13.7 g/dl (12.0-16.0); LYMPHOCYTES # (AUTO) 3.1 X10'3 (1.1-4.8); LYMPHOCYTES % (AUTO) 40.5 % (21-51); MEAN CORPUSCULAR HEMOGLOBIN 31.9 PG (27.0-31.0); MEAN CORPUSCULAR HGB CONC 34.7 g/dL (33.0-36.5); MONOCYTES # (AUTO) 0.6 X10'3 (0-0.9); MONOCYTES % (AUTO) 7.5 % (2-12); NEUTROPHILS # (AUTO) 3.8 X10'3 (1.8-7.7); NEUTROPHILS % (AUTO) 50.1 % (42-75); PLATELET COUNT 244 X10'3 (140-440); RED BLOOD COUNT 4.31 X10'6 (4.20-5.60); RED CELL DISTRIBUTION WIDTH 13.4 % (11.5-14.5); WHITE BLOOD COUNT 7.6 X10'3 (4.5-11.0)
[2024-03-19 09:41] LABS: URINE HCG NEGATIVE (NEG)
[2024-03-19 09:50] LABS: ALANINE AMINOTRANSFERASE 25 U/L (12-78); ALBUMIN 3.4 G/DL (3.4-5.0); ALBUMIN/GLOBULIN RATIO 0.8 (1.1-1.5); ALKALINE PHOSPHATASE 97 IU/L (46-116); ASPARTATE AMINO TRANSFERASE 18 U/L (10-37); BILIRUBIN,TOTAL 0.4 MG/DL (0.1-1.0); BLOOD UREA NITROGEN 14 MG/DL (7-18); BUN/CREATININE RATIO 17.3 (10.0-20.0); CALCIUM 8.7 MG/DL (8.5-10.1); CREATININE 0.81 MG/DL (0.40-0.90); GLUCOSE 103 MG/DL (70-104); LIPASE 53 U/L (16-77); TOTAL CARBON DIOXIDE 26.7 MMOL/L (24-32); TOTAL PROTEIN 7.6 G/DL (6.4-8.2); eCRCL 64 ML/MIN; eGFR 72 ML/MIN
[2024-03-19 09:56] LABS: ANION GAP 8 (8-16); CHLORIDE 104 MMOL/L (99-107); POTASSIUM 4.3 MMOL/L (3.5-5.1); SODIUM 139 MMOL/L (135-145)
[2024-03-19] MEDS ORDERED: iohexol 300mg/ml 100ml inj. ONE (10:03)
[2024-03-19] MEDS: normal saline 1000ml 1,000 ML IV ONE (10:51)
[2024-03-19] MEDS: ketorolac trometh 30MG/ML vial 30 MG/ML VIAL IV ONE (10:51)
[2024-03-19 13:52] VITALS: BP 97/55; PULSE 61; RESP 16; TEMP 98.6; O2SAT 96
== END 2024-03-19 13:53 | disposition home or self-care (01) ==
LOC: ER 09:06
DX: R10.32 Left lower quadrant pain (principal); F41.9 Anxiety disorder, unspecified; Z88.0 Allergy status to penicillin; Z88.1 Allergy status to other antibiotic agents; Z88.2 Allergy status to sulfonamides; Z88.5 Allergy status to narcotic agent; Z88.8 Allergy status to other drugs, medicaments and biological substances; Z90.49 Acquired absence of other specified parts of digestive tract; Z90.710 Acquired absence of both cervix and uterus; Z98.890 Other specified postprocedural states; Z87.442 Personal history of urinary calculi; Z90.89 Acquired absence of other organs
CPT/HCPCS: 36415; 74177; 80053; 81003; 81025; 83690; 85025; 96361; 96374; 99285; J1885; J7030; Q9967

== ENCOUNTER 2024-03-21 13:21 | Emergency (ER) | payer MEDICAID ==
[~2024-03-21] VITALS: Ht 162.6 cm; Wt 75.5 kg
[2024-03-21 13:29] VITALS: TEMP 97.8
[2024-03-21] MEDS: normal saline 1000ml 1,000 ML IV ONE (14:05)
[2024-03-21] MEDS: ondansetron/PF 4mg/2ml inj IV ONE (14:05)
[2024-03-21 14:45] LABS: BASOPHILS % (AUTO) 0.1 % (0-1); EOSINOPHILS % (AUTO) 0.1 % (0-6); HEMOGLOBIN 13.7 g/dl (12.0-16.0); LYMPHOCYTES # (AUTO) 0.7 X10'3 (1.1-4.8); MEAN CORPUSCULAR HEMOGLOBIN 30.6 PG (27.0-31.0); MEAN CORPUSCULAR HGB CONC 33.3 g/dL (33.0-36.5); MEAN CORPUSCULAR VOLUME 91.8 FL (78-98); MEAN PLATELET VOLUME 7.5 FL (7.4-10.4); MONOCYTES # (AUTO) 0.3 X10'3 (0-0.9); NEUTROPHILS # (AUTO) 10.1 X10'3 (1.8-7.7); NEUTROPHILS % (AUTO) 90.8 % (42-75); PLATELET COUNT 235 X10'3 (140-440); RED BLOOD COUNT 4.47 X10'6 (4.20-5.60); RED CELL DISTRIBUTION WIDTH 13.5 % (11.5-14.5); WHITE BLOOD COUNT 11.1 X10'3 (4.5-11.0)
[2024-03-21 14:52] LABS: ALANINE AMINOTRANSFERASE 26 U/L (12-78); ALBUMIN 3.3 G/DL (3.4-5.0); ALBUMIN/GLOBULIN RATIO 0.9 (1.1-1.5); ALKALINE PHOSPHATASE 80 IU/L (46-116); ANION GAP 5 (8-16); ASPARTATE AMINO TRANSFERASE 18 U/L (10-37); BILIRUBIN,TOTAL 0.5 MG/DL (0.1-1.0); BLOOD UREA NITROGEN 14 MG/DL (7-18); BUN/CREATININE RATIO 16.7 (10.0-20.0); CALCIUM 8.4 MG/DL (8.5-10.1); CHLORIDE 108 MMOL/L (99-107); CREATININE 0.84 MG/DL (0.40-0.90); GLUCOSE 137 MG/DL (70-104); LIPASE 24 U/L (16-77); POTASSIUM 4.2 MMOL/L (3.5-5.1); SODIUM 140 MMOL/L (135-145); TOTAL CARBON DIOXIDE 27.2 MMOL/L (24-32); eCRCL 62 ML/MIN; eGFR 69 ML/MIN
[2024-03-21] MEDS: morphine 2 MG/ML inj. syringe IM ONE (16:55)
[2024-03-21] MEDS: diphenoxylate/atropine tablet (Lomotil) PO ONE (16:56)
[2024-03-21] MEDS: ondansetron 4mg rapidly disintigrating tab PO ONE (16:56)
[2024-03-21 17:20] LABS: BILIRUBIN,URINE NEGATIVE (Neg); CLARITY,URINE CLEAR (Clear); COLOR,URINE YELLOW (Yellow); GLUCOSE, URINE NEGATIVE (Neg); KETONES,URINE 15 mg/dl (Neg); LEUKOCYTE ESTERASE ,URINE NEGATIVE (Neg); NITRITES, URINE NEGATIVE (Neg); OCCULT BLOOD,URINE SMALL (Neg); PROTEIN,URINE NEGATIVE (Neg); UROBILINOGEN,URINE 0.2 E.U/dL (0.2-1.0)
[2024-03-21 17:26] LABS: UA COLLECTION TYPE CLN CATCH MIDSTREAM
[2024-03-21 17:27] LABS: BACTERIA,URINE NONE SEEN /HPF (Neg); WBC,URINE 0-4 /HPF (0-4)
[2024-03-21 17:28] LABS: MUCUS STRANDS FEW /LPF (Neg); SQUAMOUS EPITHELIAL CELL,UR FEW /LPF (FEW)
[2024-03-21 17:51] VITALS: BP 126/76; PULSE 86; RESP 18; O2SAT 96
== END 2024-03-21 17:55 | disposition home or self-care (01) ==
LOC: ER 13:22
DX: R11.2 Nausea with vomiting, unspecified (principal); R19.7 Diarrhea, unspecified; R10.84 Generalized abdominal pain; R50.9 Fever, unspecified; G43.909 Migraine, unspecified, not intractable, without status migrainosus; Z88.0 Allergy status to penicillin; Z88.2 Allergy status to sulfonamides; Z88.1 Allergy status to other antibiotic agents; Z88.5 Allergy status to narcotic agent; Z88.8 Allergy status to other drugs, medicaments and biological substances; Z90.710 Acquired absence of both cervix and uterus; Z90.49 Acquired absence of other specified parts of digestive tract; Z79.899 Other long term (current) drug therapy; Z87.442 Personal history of urinary calculi; Z98.890 Other specified postprocedural states; Z56.0 Unemployment, unspecified
CPT/HCPCS: 36415; 80053; 81001; 83690; 85025; 96360; 96372; 99283; J2270; J7030

== ENCOUNTER 2024-07-24 06:55 | Emergency (ER) | payer MEDICAID ==
[~2024-07-24] VITALS: Ht 162.6 cm; Wt 67.7 kg
[2024-07-24 06:56] VITALS: TEMP 97.2
[2024-07-24] MEDS ORDERED: morphine 10mg/ml inj. IV ONE (07:10)
[2024-07-24 07:37] LABS: BASOPHILS % (AUTO) 0.6 % (0-1); EOSINOPHILS # (AUTO) 0.1 X10'3 (0-0.9); EOSINOPHILS % (AUTO) 1.3 % (0-6); HEMATOCRIT 39.5 % (35.0-45.0); HEMOGLOBIN 13.5 g/dl (12.0-16.0); LYMPHOCYTES # (AUTO) 2.4 X10'3 (1.1-4.8); LYMPHOCYTES % (AUTO) 42.7 % (21-51); MEAN CORPUSCULAR HEMOGLOBIN 30.7 PG (27.0-31.0); MEAN CORPUSCULAR HGB CONC 34.3 g/dL (33.0-36.5); MEAN CORPUSCULAR VOLUME 89.6 FL (78-98); MEAN PLATELET VOLUME 7.8 FL (7.4-10.4); MONOCYTES # (AUTO) 0.4 X10'3 (0-0.9); MONOCYTES % (AUTO) 6.8 % (2-12); NEUTROPHILS # (AUTO) 2.7 X10'3 (1.8-7.7); NEUTROPHILS % (AUTO) 48.6 % (42-75); PLATELET COUNT 247 X10'3 (140-440); RED BLOOD COUNT 4.41 X10'6 (4.20-5.60); WHITE BLOOD COUNT 5.6 X10'3 (4.5-11.0)
[2024-07-24 07:51] LABS: ALANINE AMINOTRANSFERASE 38 U/L (12-78); ALBUMIN 3.7 G/DL (3.4-5.0); ALBUMIN/GLOBULIN RATIO 1.1 (1.1-1.5); ALKALINE PHOSPHATASE 78 IU/L (46-116); ANION GAP 7 (8-16); ASPARTATE AMINO TRANSFERASE 21 U/L (10-37); BILIRUBIN,TOTAL 0.5 MG/DL (0.1-1.0); BLOOD UREA NITROGEN 9 MG/DL (7-18); BUN/CREATININE RATIO 12.2 (10.0-20.0); CALCIUM 8.8 MG/DL (8.5-10.1); CHLORIDE 108 MMOL/L (99-107); CREATININE 0.74 MG/DL (0.40-0.90); GLUCOSE 109 MG/DL (70-104); LIPASE 32 U/L (16-77); POTASSIUM 4.1 MMOL/L (3.5-5.1); SODIUM 143 MMOL/L (135-145); TOTAL CARBON DIOXIDE 28.2 MMOL/L (24-32); eCRCL 70 ML/MIN; eGFR 80 ML/MIN
[2024-07-24] MEDS: morphine 4 MG/ML inj SYRINge IV ONE (07:55)
[2024-07-24] MEDS ORDERED: iohexol 300mg/ml 100ml inj. ONE (08:00)
[2024-07-24] MEDS: ondansetron/PF 4mg/2ml inj IV ONE (08:15)
[2024-07-24] MEDS ORDERED: normal saline 500ml IV soln 500 ML IV ONE (08:15)
[2024-07-24] MEDS: diphenhydrAMINE 50 mg/ml inj IV ONE (08:41)
[2024-07-24 10:15] LABS: BILIRUBIN,URINE NEGATIVE (Neg); CLARITY,URINE CLEAR (Clear); COLOR,URINE YELLOW (Yellow); GLUCOSE, URINE NEGATIVE (Neg); KETONES,URINE NEGATIVE (Neg); LEUKOCYTE ESTERASE ,URINE NEGATIVE (Neg); NITRITES, URINE NEGATIVE (Neg); OCCULT BLOOD,URINE NEGATIVE (Neg); PROTEIN,URINE NEGATIVE (Neg); UROBILINOGEN,URINE 0.2 E.U/dL (0.2-1.0)
[2024-07-24 10:18] LABS: UA COLLECTION TYPE CLN CATCH MIDSTREAM
[2024-07-24] MEDS: ketorolac trometh 30MG/ML vial 30 MG/ML VIAL IV ONE (10:21)
[2024-07-24] MEDS: OLANZapine **IM** 10 mg inj. IM ONE (10:26)
[2024-07-24 10:31] LABS: URINE HCG NEGATIVE (NEG)
[2024-07-24 11:54] VITALS: BP 155/46; PULSE 59; RESP 20; O2SAT 98
== END 2024-07-24 11:55 | disposition home or self-care (01) ==
LOC: ER 06:56
DX: R10.32 Left lower quadrant pain (principal); G43.909 Migraine, unspecified, not intractable, without status migrainosus; Z87.891 Personal history of nicotine dependence; Z87.440 Personal history of urinary (tract) infections; Z88.0 Allergy status to penicillin; Z88.1 Allergy status to other antibiotic agents; Z88.2 Allergy status to sulfonamides; Z88.5 Allergy status to narcotic agent; Z88.8 Allergy status to other drugs, medicaments and biological substances; Z90.49 Acquired absence of other specified parts of digestive tract; Z90.710 Acquired absence of both cervix and uterus
CPT/HCPCS: 36415; 74177; 80053; 81003; 81025; 83690; 85025; 96374; 96375; 99285; J1200; J1885; J2270; J7040; Q9967

== ENCOUNTER 2024-09-01 07:47 | Emergency (ER) | payer MEDICAID ==
[~2024-09-01] VITALS: Ht 162.6 cm; Wt 74.9 kg
[2024-09-01] MEDS ORDERED: HYDR-3965 PO (08:05)
[2024-09-01] MEDS ORDERED: METH4TAB81 PO (08:05)
--- NOTE | 2024-09-01 08:06 | Physician Documentation ---
History of Present Illness ~ Chief Complaint: Shoulder pain Stated Complaint: SHOULDER PAIN Time Seen by MD: 07:53 Primary Medical Doctor: Derek CHIN Patient is here with pain over bilateral trapezius muscles. It is said that the pain has at the base of her neck and radiates laterally on both sides. Started two weeks ago she woke up and felt like she slept wrong. Pain that has gradually increased. It is worse when she turns her head [id number] or chest extend her neck. No trauma no fevers or chills numbness tingling or weakness or any other symptoms Tetanus within 5 years?: No Medication Reconciliation Allergies: Coded Allergies: famotidine (Verified Allergy, Severe, "MESSES WITH MY HEART"- ARRYTHMIA QT PROLONG DRUG, 03/21/24) Penicillins (Verified Allergy, Unknown, 03/21/24) Sulfa (Sulfonamide Antibiotics) (Verified Allergy, Unknown, 03/21/24) codeine (Unverified Allergy, Unknown, 03/21/24) doxycycline (Verified Allergy, Unknown, 03/21/24) erythromycin base (Verified Allergy, Unknown, 03/21/24) hydromorphone (Verified Allergy, Unknown, 03/19/24) levofloxacin (Verified Allergy, Unknown, 03/21/24) metronidazole (Verified Allergy, Unknown, 03/21/24) pantoprazole (Verified Allergy, Unknown, DIARRHEA, 03/21/24) triamcinolone (Unverified Allergy, Unknown, HTN, 03/21/24) morphine (Verified Adverse Reaction, Intermediate, RASH, 07/24/24) PT HAS MORPHINE BEFORE. SHE TOLERATES PER amoxicillin (Verified Adverse Reaction, Unknown, N/V, 03/21/24) clavulanic acid (Verified Adverse Reaction, Unknown, N/V, 03/21/24) Scheduled Meclizine HCl (Meclizine HCl), 1 TAB PO TID PRN Ondansetron Hcl (Zofran), 1 TAB PO Q6H Peg 3350/Na Sulf,Bicarb,Cl/KCl (Golytely Solution), 0 PO UD Miscellaneous Medications Clonazepam (Clonazepam), (Reported) Past Medical History Past Medical History: Headache, Migraine, Allergic Rhinitis, Diverticulitis, Diverticulosis, Hepatitis B, Pancreatitis, *RENAL/*, Hernia, Kidney Stones, UTI, Chronic Back Pain, *INFECTIOUS DZ*, Anxiety Past Surgical History: abdominal surgery, appendectomy, colectomy, , hysterectomy, tonsillectomy, other Other Past Surgical History: Rectocele, hydrocele, bladder sling Alcohol Use: None Drug Use: none Lives with: Family Lives In: Home Occupation: unemployed Physical Exam Vital Signs: Temperature: 97.9, Source: Temporal, Heart Rate: 86, Respiratory Rate: 18, BP: 134/107, Pulse Oximetry: 98, Weight: 74.900 Oxygen Flow Rate: 0 Physical Exam General: Awake and Alert, no acute distress. HEENT: Conjunctiva pink, Sclera clear, Mucus Membranes moist. Neck: Supple without masses and tenderness. Resp: Unlabored. Lungs clear to auscultation bilaterally. Heart: Regular Rate and rhythm, normal S1 and S2 without murmur, rub or gallop. Abdomen: Soft and non tender no organomegaly Extremities: No cyanosis,clubbing or edema. Pain over the trapezius muscles bilaterally no midline tenderness. Skin: Warm and Dry. Neuro: GCS 15; no focal deficits normal strength and sensation to light touch in all of her extremities. Progress Results/Orders Results/Orders Vital Signs 09/01/24 07:50 Temp 97.9 Pulse 86 Resp 18 B/P (MAP) 134/107 Pulse Ox 98 O2 Flow Rate 0 Medical Decision Making Findings Patient is here with a what appears to be muscle strain in time she is even spasming during my exam. She said that she drove herself to the hospitalist set limits medications that can be administered here. Says that she can not take NSAIDs because of stomach issues. So I did not order medicines for here by a sent prescriptions for hydrocodone baclofen and a Medrol Dosepak. Recommended she follow up with her PCP for advanced imaging if necessary. Departure Impression: Primary Impression: Neck pain Condition: Stable Discharge Instructions: Shoulder Pain Additional Instructions: Returned for worsening symptoms numbness tingling weakness or any concerns. Referrals: NO PRIMARY CARE PROVIDER (PCP) Prescriptions Baclofen (Baclofen) 20 Mg Tablet 1 TAB PO Q8H, #20 TAB 0 Refills Prov: ABI IBRAHIM MD 09/01/24 Hydrocodone Bit/Acetaminophen 5/325 MG (Moore 5/325 MG) 5 Mg/325 Mg Tablet 1 TAB PO Q6H PRN for pain, #12 TAB Prov: ABI IBRAHIM MD 09/01/24 Methylprednisolone (Medrol Dosepak) 4 Mg Tab.ds.pk 0 PO UD, #21 TAB 0 Refills take 6 Pills Day 1, 5 Pills Day 2, 4 Pills Day 3, 3 Pills Day 4, 2 Pills Day 5 and 1 pill Day 6 Prov: ABI IBRAHIM MD 09/01/24 Education Educated: Patient Educated regarding: diagnosis, treatment, prognosis, need for follow up Signature Scribe Signature: no scribe Attestation: no scribe ABI IBRAHIM MD Sep 01, 2024 08:06
[2024-09-01] MEDS ORDERED: BACL20TA2 PO (08:09)
[2024-09-01 08:37] VITALS: BP 110/72; PULSE 89; RESP 16; TEMP 97.9; O2SAT 97
== END 2024-09-01 08:41 | disposition home or self-care (01) ==
LOC: ER 07:48
DX: M54.2 Cervicalgia (principal); G43.909 Migraine, unspecified, not intractable, without status migrainosus; Z88.0 Allergy status to penicillin; Z88.2 Allergy status to sulfonamides; Z88.5 Allergy status to narcotic agent; Z88.1 Allergy status to other antibiotic agents; Z88.8 Allergy status to other drugs, medicaments and biological substances; Z90.49 Acquired absence of other specified parts of digestive tract; Z90.710 Acquired absence of both cervix and uterus; Z79.899 Other long term (current) drug therapy; Z56.0 Unemployment, unspecified; Z87.442 Personal history of urinary calculi
CPT/HCPCS: 99283

== ENCOUNTER 2024-09-13 10:18 | Outpatient (CLI) | payer MEDICAID ==
[~2024-09-13 10:18] MED LIST changes: +BACL20TA2 PO; +HYDR-3965 PO; +METH4TAB81 PO
--- NOTE | 2024-09-13 11:37 | RADIOLOGY REPORT ---
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 FINDINGS: Limited by motion. The cervical alignment is intact. There are degenerative endplate changes with anterior osteophytes mid to lower cervical levels. The visualized posterior fossa and craniocervical junction are intact. The intrinsic cervical cord signal appears intact. There is no prevertebral soft tissue swelling. The visualized paraspinal soft tissues are otherwise unremarkable. The following axial levels are detailed below: C2-C3: Unremarkable. C3-C4: Unremarkable. C4-C5: Moderate posterior disc osteophyte complex complicated by facet arthropathy associated with moderate to severe right neural foraminal stenosis. Central canal measures 9 mm. C5-C6: Moderate posterior disc osteophyte complex complicated by facet arthropathy associated with moderate to severe right neural foraminal stenosis. Central canal measures 9 mm. C6-C7: Mild posterior disc osteophyte complex complicated by facet arthropathy associated with mild to moderate bilateral neural foraminal stenosis left greater than right. No significant central stephanie l stenosis. C7-T1: Unremarkable. IMPRESSION: 1. Limited by motion. Multilevel degenerative disease. Mild central canal stenosis C4-5 and C5-6. N eural foraminal stenosis as above. 2. No definite abnormal cord signal. HS:Y
== END 2024-09-13 23:59 | disposition home or self-care (01) ==
LOC: MRI02 10:18
PROVIDERS: ATTEND Anesthesiology Pain Medicine
DX: M50.322 Other cervical disc degeneration at C5-C6 level (principal); M47.812 Spondylosis without myelopathy or radiculopathy, cervical region; M54.6 Pain in thoracic spine; M54.50 Low back pain, unspecified; M41.9 Scoliosis, unspecified; M48.02 Spinal stenosis, cervical region
CPT/HCPCS: 72141

== ENCOUNTER 2024-09-19 06:37 | Emergency (ER) | payer MEDICAID ==
[~2024-09-19] VITALS: Ht 162.6 cm; Wt 67.8 kg
[2024-09-19] MEDS: morphine 4 MG/ML inj SYRINge IM ONE (08:46)
--- NOTE | 2024-09-19 08:46 | ELECTROCARDIOGRAPH REPORT ---
[facility] Test Date: 2024-09-19 Test Time: 08:43:32 Pat Name: STU LANDRY Department: [facility]- Patient ID: [id number] Room: Gender: F Data Input Clerk: : 1965 Requested By: CLAUS HUITRON Order Number: [id number] Reading MD: Measurements Intervals Odin Rate: 59 P: 47 MD: 160 QRS: -29 QRSD: 91 T: 38 QT: 409 QTc: 406 Interpretive Statements Sinus bradycardia Borderline left axis deviation Low voltage, precordial leads Consider anterior infarct Please click the below link to view image of tracing.
[2024-09-19 09:11] LABS: BASOPHILS % (AUTO) 0.5 % (0-1); EOSINOPHILS # (AUTO) 0.1 X10'3 (0-0.9); EOSINOPHILS % (AUTO) 1.6 % (0-6); HEMATOCRIT 38.6 % (35.0-45.0); HEMOGLOBIN 12.8 g/dl (12.0-16.0); LYMPHOCYTES # (AUTO) 2.5 X10'3 (1.1-4.8); LYMPHOCYTES % (AUTO) 33.2 % (21-51); MEAN CORPUSCULAR HEMOGLOBIN 30.3 PG (27.0-31.0); MEAN CORPUSCULAR HGB CONC 33.1 g/dL (33.0-36.5); MEAN CORPUSCULAR VOLUME 91.5 FL (78-98); MEAN PLATELET VOLUME 7.7 FL (7.4-10.4); MONOCYTES # (AUTO) 0.7 X10'3 (0-0.9); MONOCYTES % (AUTO) 8.6 % (2-12); NEUTROPHILS # (AUTO) 4.3 X10'3 (1.8-7.7); NEUTROPHILS % (AUTO) 56.1 % (42-75); PLATELET COUNT 236 X10'3 (140-440); RED BLOOD COUNT 4.22 X10'6 (4.20-5.60); WHITE BLOOD COUNT 7.6 X10'3 (4.5-11.0)
[2024-09-19 09:17] LABS: ALBUMIN 3.2 G/DL (3.4-5.0); ANION GAP 6 (8-16); BLOOD UREA NITROGEN 11 MG/DL (7-18); BUN/CREATININE RATIO 15.3 (10.0-20.0); CALCIUM 8.7 MG/DL (8.5-10.1); CHLORIDE 106 MMOL/L (99-107); CREATININE 0.72 MG/DL (0.40-0.90); GLUCOSE 106 MG/DL (70-104); MAGNESIUM 2.1 MG/DL (1.5-2.4); POTASSIUM 4.5 MMOL/L (3.5-5.1); SODIUM 138 MMOL/L (135-145); TOTAL CARBON DIOXIDE 25.7 MMOL/L (24-32); eCRCL 71 ML/MIN; eGFR 82 ML/MIN
[2024-09-19 09:39] VITALS: BP 95/46; PULSE 53; RESP 16; TEMP 98.6; O2SAT 98
--- NOTE | 2024-09-19 10:10 | Physician Documentation ---
History of Present Illness ~ Chief Complaint: Neck pain Stated Complaint: NECK PAIN Time Seen by MD: 08:19 Primary Medical Doctor: Derek Vasquez HPI 59-year-old female presenting with neck pain. Patient has a history of chronic severe neck pain for which she is on Clinton for. She had an MRI recently which indicated severe cervical spondylosis with disc herniations. Patient states that over the past day or two the pain has gotten a lot worse. She has been taking her Clinton but it has not been helping as much. She has not appointment tomorrow with orthopedic spine but she states that last night she could not sleep and she just needs some pain medication to get her through the next day or two. She also gets radiating pain down her arms with associated numbness and tingling in her hands which is chronic for her. No recent trauma or other inciting events. Medication Reconciliation Allergies: Coded Allergies: famotidine (Verified Allergy, Severe, "MESSES WITH MY HEART"- ARRYTHMIA QT PROLONG DRUG, 03/21/24) Penicillins (Verified Allergy, Unknown, 03/21/24) Sulfa (Sulfonamide Antibiotics) (Verified Allergy, Unknown, 03/21/24) codeine (Unverified Allergy, Unknown, 03/21/24) doxycycline (Verified Allergy, Unknown, 03/21/24) erythromycin base (Verified Allergy, Unknown, 03/21/24) hydromorphone (Verified Allergy, Unknown, 03/19/24) levofloxacin (Verified Allergy, Unknown, 03/21/24) metronidazole (Verified Allergy, Unknown, 03/21/24) pantoprazole (Verified Allergy, Unknown, DIARRHEA, 03/21/24) triamcinolone (Unverified Allergy, Unknown, HTN, 03/21/24) morphine (Verified Adverse Reaction, Intermediate, RASH, 07/24/24) PT HAS MORPHINE BEFORE. SHE TOLERATES PER amoxicillin (Verified Adverse Reaction, Unknown, N/V, 03/21/24) clavulanic acid (Verified Adverse Reaction, Unknown, N/V, 03/21/24) Scheduled Baclofen (Baclofen), 1 TAB PO Q8H Meclizine HCl (Meclizine HCl), 1 TAB PO TID PRN Methylprednisolone (Medrol Dosepak), 0 PO UD Ondansetron Hcl (Zofran), 1 TAB PO Q6H Peg 3350/Na Sulf,Bicarb,Cl/KCl (Golytely Solution), 0 PO UD Scheduled PRN Hydrocodone Bit/Acetaminophen 5/325 MG (Clinton 5/325 MG), 1 TAB PO Q6H PRN for pain Miscellaneous Medications Clonazepam (Clonazepam), (Reported) Past Medical History Past Medical History: Headache, Migraine, Allergic Rhinitis, Diverticulitis, Diverticulosis, Hepatitis B, Pancreatitis, *RENAL/*, Hernia, Kidney Stones, UTI, Chronic Back Pain, *INFECTIOUS DZ*, Anxiety Past Surgical History: abdominal surgery, appendectomy, colectomy, , hysterectomy, tonsillectomy, other Other Past Surgical History: Rectocele, hydrocele, bladder sling Smoking Status: Former smoker Alcohol Use: None Drug Use: none Lives with: Family Lives In: Home Occupation: unemployed Review of Systems All Other Systems at this time: Reviewed and Negative Physical Exam Vital Signs: Temperature: 98.6, Source: Temporal, Heart Rate: 53, Respiratory Rate: 16, BP: 95/46, Pulse Oximetry: 98, Weight: 67.750 Oxygen Flow Rate: 0 Physical Exam I have reviewed the triage vitals. CONST: Well developed and well nourished. In no acute distress HENT: Head Atraumatic EYES: Pupils are equal, round and reactive to light. Normal conjunctiva NECK: Normal appearance of the neck. There is tenderness to palpation over the cervical vertebrae. There is limited range of motion on flexion, extension and rotation due to pain.. CARDIO: Normal rate and regular rhythm. No murmurs, rubs, or gallops. S1, S2. PULM/CHEST: No respiratory distress. Lungs clear to auscultation. No wheeze ABD: Soft and nontender. Nondistended. Bowel sounds normal. No guarding. : Exam deferred MSK: No edema. No deformity. NEURO: Alert and oriented to person, place and time. Moving all extremities SKIN: Warm and dry. PSYCH: Normal mood and affect. Good eye contact. Progress Results/Orders Results/Orders Completed Orders - CLAUS HUITRON MD MG (09/19/24 08:29) BMP (09/19/24 08:29) Cbc/Diff (09/19/24 08:30) Electrocardiogram (09/19/24 ) Morphine 4mg/Ml Inj. (Morphine Inj.) (09/19/24 08:30) Medications Received in ER Medications (Trade) Dose Ordered Sig/Hortencia Route PRN Reason Start Time Stop Time Status Last Admin Dose Admin (morphine inj.) 4 mg ONCE ONCE IM 09/19/24 08:30 09/19/24 08:42 DC 09/19/24 08:46 4 MG Vital Signs 09/19/24 09/19/24 06:44 09:39 Temp 98.6 98.6 Pulse 86 53 Resp 17 16 B/P (MAP) 96/72 95/46 (62) Pulse Ox 97 98 O2 Flow Rate 0 Laboratory Tests Test 09/19/24 08:54 White Blood Count 7.6 Red Blood Count 4.22 Hemoglobin 12.8 Hematocrit 38.6 Mean Corpuscular Volume 91.5 Mean Corpuscular Hemoglobin 30.3 Mean Corpuscular Hemoglobin Concent 33.1 Red Cell Distribution Width 13.0 Platelet Count 236 Mean Platelet Volume 7.7 Neutrophils (%) (Auto) 56.1 Lymphocytes (%) (Auto) 33.2 Monocytes (%) (Auto) 8.6 Eosinophils (%) (Auto) 1.6 Basophils (%) (Auto) 0.5 Neutrophils # (Auto) 4.3 Lymphocytes # (Auto) 2.5 Monocytes # (Auto) 0.7 Eosinophils # (Auto) 0.1 Basophils # (Auto) 0.0 CBC Comment Sodium Level 138 Potassium Level 4.5 Chloride Level 106 Carbon Dioxide Level 25.7 Anion Gap 6 L Blood Urea Nitrogen 11 Creatinine 0.72 Estimated GFR/1.73 m2 82 BUN/Creatinine Ratio 15.3 Glucose Level 106 H Calcium Level 8.7 Magnesium Level 2.1 Albumin 3.2 L Chemistry Comments Medical Decision Making Additional Comment 59-year-old female presenting with acute on chronic severe neck pain. Her home medications have not appear to be working very well. We did give her a 1 mg injection of IM morphine with good improvement of symptoms. I did review her cervical MRI which indicated cervical spondylosis with facet arthropathy, osteophytes and significant degenerative changes with disc herniations. The patient has an appointment tomorrow with ortho spine and advised her to keep this appointment. Given that her Clinton has been minimal useful I will prescribe her medications for breakthrough pain to get her through tonight. She has multiple allergies but states that she can take morphine and she did not show any reaction to the IM morphine that was given to her here in the ED. NSAIDs, corticosteroids cause severe side effects with the patient and are not feasible. I will prescribe her several tablets of morphine 15 mg to take for breakthrough pain. I did check cures and did notice that the patient has been given several prescriptions for opiate pain medication including Clinton and oxycodone. However that appears to be no suspicious activity and the patient does have MRI findings and clinical signs that would indicate significant and severe pain. I did advise the patient on the risks and benefits and recommended that she minimize the use of this medication and use it only for severe breakthrough pain. Patient has not appointment tomorrow with ortho spine and advised her to keep this appointment. Return to the ED with any acutely worsening symptoms. Departure Disposition: 01 HOME / SELF CARE / HOMELESS Impression: Primary Impression: Cervical spondylosis Condition: Improved Discharge Instructions: Spondylolysis Additional Instructions: Please take your medication as prescribed. You are being prescribed morphine which is a strong medication with potential for dependence and addiction.. He is minimize the use of this medication and only use for severe breakthrough pain. You may continue your other home medications and only use this medication for breakthrough pain. Follow up closely tomorrow with ortho spine surgery. Return to the ED with any acutely worsening symptoms. Referrals: NO PRIMARY CARE PROVIDER (PCP) Prescriptions ONDANSETRON ODT 4mg tablet (ONDANSETRON ODT) 4 Mg Tab.rapdis 1 TAB PO Q6H PRN PRN for nausea/vomiting for 8 Days, #30 TAB 0 Refills Prov: CLAUS HUITRON MD 09/19/24 Morphine Sulfate (Morphine Sulfate) 15 Mg Tablet 1 TAB PO Q12H PRN PRN for pain for 5 Days, #10 TAB Prov: CLAUS HUITRON MD 09/19/24 Signature Scribe Signature: 1 Attestation: 1 CLAUS HUITRON MD Sep 19, 2024 10:10
[2024-09-19] MEDS ORDERED: MORP15TA PO (10:18)
[2024-09-19] MEDS ORDERED: ONDA-243 PO (10:18)
== END 2024-09-19 10:28 | disposition home or self-care (01) ==
LOC: ER 06:38
DX: M47.812 Spondylosis without myelopathy or radiculopathy, cervical region (principal); Z87.891 Personal history of nicotine dependence; Z88.0 Allergy status to penicillin; Z88.1 Allergy status to other antibiotic agents; Z88.2 Allergy status to sulfonamides; Z88.5 Allergy status to narcotic agent; Z88.8 Allergy status to other drugs, medicaments and biological substances; Z90.49 Acquired absence of other specified parts of digestive tract; Z90.710 Acquired absence of both cervix and uterus; Z79.899 Other long term (current) drug therapy
CPT/HCPCS: 36415; 80048; 83735; 85025; 93005; 96372; 99284; J2270

== ENCOUNTER 2024-10-20 08:04 | Emergency (ER) | payer MEDICAID ==
[~2024-10-20] VITALS: Ht 162.6 cm; Wt 74.8 kg
[~2024-10-20 08:04] MED LIST changes: -HYDR-3965 PO; +ONDA-243 PO; +TRAM200C4 PO
[2024-10-20 08:11] VITALS: RESP 16; TEMP 98
[2024-10-20 08:35] VITALS: BP 107/61; PULSE 71; O2SAT 96
[2024-10-20] MEDS ORDERED: PRED5TAB PO (09:07)
--- NOTE | 2024-10-20 09:07 | Physician Documentation ---
History of Present Illness ~ General Chief Complaint: Multiple Medical Complaints Stated Complaint: HEAD PRESSURE Time Seen by MD: 08:52 Primary Medical Doctor: Derek Vasquez History of Present Illness Initial Comments 59-year-old female with a reported diagnosis of polymyalgia rheumatica complains of ongoing symptoms which are chronic in nature. His symptoms include headache head pressure vision disturbances body aches general malaise and fatigue. She has been worked up in the outpatient setting and has a referral to get an MRI. She states she is hoping to get an MRI here today. Addition she says she is on a very low dose of prednisone per her doctor. However, she has continued to have a ongoing inflammatory complaints Medication Reconciliation Allergies: Coded Allergies: famotidine (Verified Allergy, Severe, "MESSES WITH MY HEART"- ARRYTHMIA QT PROLONG DRUG, 09/30/24) Penicillins (Verified Allergy, Unknown, 09/30/24) Sulfa (Sulfonamide Antibiotics) (Verified Allergy, Unknown, 09/30/24) codeine (Unverified Allergy, Unknown, 09/30/24) doxycycline (Verified Allergy, Unknown, 09/30/24) erythromycin base (Verified Allergy, Unknown, 09/30/24) hydromorphone (Verified Allergy, Unknown, 09/30/24) levofloxacin (Verified Allergy, Unknown, 09/30/24) metronidazole (Verified Allergy, Unknown, 09/30/24) pantoprazole (Verified Allergy, Unknown, DIARRHEA, 09/30/24) triamcinolone (Unverified Allergy, Unknown, HTN, 09/30/24) morphine (Verified Adverse Reaction, Intermediate, RASH, 09/30/24) PT HAS MORPHINE BEFORE. SHE TOLERATES PER amoxicillin (Verified Adverse Reaction, Unknown, N/V, 09/30/24) clavulanic acid (Verified Adverse Reaction, Unknown, N/V, 09/30/24) Scheduled Baclofen (Baclofen), 1 TAB PO Q8H Meclizine HCl (Meclizine HCl), 1 TAB PO TID PRN Methylprednisolone (Medrol Dosepak), 0 PO UD Ondansetron Hcl (Zofran), 1 TAB PO Q6H Peg 3350/Na Sulf,Bicarb,Cl/KCl (Golytely Solution), 0 PO UD Prednisone* (Prednisone*), 1 TAB PO DAILY Tramadol HCl (Tramadol HCl ER), 1 CAP PO DAILY Scheduled PRN ONDANSETRON ODT 4mg tablet (Ondansetron Odt), 1 TAB PO Q6H PRN PRN for nausea/vomiting Miscellaneous Medications Clonazepam (Clonazepam), (Reported) Past Medical History Past Medical History: Headache, Migraine, Allergic Rhinitis, Diverticulitis, Diverticulosis, Hepatitis B, Pancreatitis, *RENAL/*, Hernia, Kidney Stones, UTI, Chronic Back Pain, *INFECTIOUS DZ*, Anxiety Past Surgical History: abdominal surgery, appendectomy, colectomy, , hysterectomy, tonsillectomy, other Other Past Surgical History: Rectocele, hydrocele, bladder sling Alcohol Use: None Drug Use: none Lives with: Family Lives In: Home Occupation: unemployed Review of Systems All Other Systems at this time: Reviewed and Negative ROS As stated above in the HPI, otherwise all systems are reviewed and negative. Physical Exam Physical Exam Vital Signs: Temperature: 98.0, Source: Temporal, Heart Rate: 71, Respiratory Rate: 16, BP: 107/61, Pulse Oximetry: 96, Weight: 74.800 Oxygen Flow Rate: 0 Physical Exam General: Alert, no apparent distress. Respiratory: Lungs clear, no respiratory distress. Cardiovascular: Regular rate and rhythm, no murmurs. Neurologic: Oriented x4. Psychiatric: Normal mood and affect. Skin: Normal color, warm and dry. No edema, no ecchymosis. Progress Results/Orders Results/Orders Vital Signs 10/20/24 10/20/24 10/20/24 08:11 08:35 09:43 Temp 98.0 Pulse 69 71 Resp 16 B/P (MAP) 96/54 107/61 (76) Pulse Ox 96 96 O2 Flow Rate 0 0 Medical Decision Making Findings Explained to this patient that an MRI is not an emergent indication for her symptoms at this time. She is currently being followed by her primary care and she has a referral to see a neurologist.. However I did offer her an increased dosage of prednisone from 2 mg to 5 mg daily. She reported reassurance with the hope for reduction in inflammatory symptoms. He will see a need for any further evaluation at this time she is not meet criteria for inpatient interventions. He is hemodynamically stable vitals with a normal limits. Going to discharge her for outpatient evaluate Departure Disposition: HOME / SELF CARE / HOMELESS Impression: Primary Impression: Polymyalgia rheumatica Condition: Stable Referrals: NO PRIMARY CARE PROVIDER (PCP) Prescriptions Prednisone* (Prednisone*) 5 Mg Tablet 1 TAB PO DAILY for 30 Days, #30 TAB 0 Refills Prov: ARIK HOLLOWAY NP 10/20/24 Education Educated: Patient Educated regarding: diagnosis Signature Scribe Signature: george Attestation: Scribed for Arik Holloway Field Account Director by Arik Landers NP . 10/20/24 18:16 ARIK HOLLOWAY NP Oct 20, 2024 09:07
== END 2024-10-20 09:48 | disposition home or self-care (01) ==
LOC: ER 08:05
DX: M35.3 Polymyalgia rheumatica (principal); G43.909 Migraine, unspecified, not intractable, without status migrainosus; Z88.0 Allergy status to penicillin; Z88.2 Allergy status to sulfonamides; Z88.5 Allergy status to narcotic agent; Z88.1 Allergy status to other antibiotic agents; Z90.49 Acquired absence of other specified parts of digestive tract; Z90.710 Acquired absence of both cervix and uterus; Z88.8 Allergy status to other drugs, medicaments and biological substances; Z79.899 Other long term (current) drug therapy; Z56.0 Unemployment, unspecified; Z87.442 Personal history of urinary calculi
CPT/HCPCS: 99283

== ENCOUNTER 2024-11-22 07:50 | Emergency (ER) | payer MEDICAID ==
[~2024-11-22] VITALS: Ht 162.6 cm; Wt 75.5 kg
[~2024-11-22 07:50] MED LIST changes: +PRED5TAB PO
[2024-11-22 07:51] VITALS: BP_DIAS 75
--- NOTE | 2024-11-22 08:01 | ELECTROCARDIOGRAPH REPORT ---
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
--- NOTE | 2024-11-22 08:24 | RADIOLOGY REPORT ---
CHEST RADIOGRAPH Indication: CP Technique: Single frontal view of the chest was obtained Comparison: DI CHEST,SINGLE VIEW on DOS: 09/30/24 FINDINGS: Lines and Tubes: None Lungs: No focal consolidation. Pleura: No effusion. No pneumothorax. Cardiomediastinal contours: Unremarkable Bones: No acute osseous abnormality. IMPRESSION: 1. No acute cardiopulmonary disease.
[2024-11-22 08:33] LABS: MEAN PLATELET VOLUME 7.9 FL (7.4-10.4); RED CELL DISTRIBUTION WIDTH 13.2 % (11.5-14.5)
--- NOTE | 2024-11-22 08:51 | Physician Documentation ---
History of Present Illness ~ Chief Complaint: Shortness of Breath Stated Complaint: SOB Time Seen by MD: 08:14 Primary Medical Doctor: Derek Vasquez Source: patient Mode of Arrival: POV Exam Limitations: no limitations HPI Chief Complaint: Shortness a breath, chest pain Caveat: None other than the patient is unable to describe her symptoms Independent Historians: None History of Present Illness: Patient is a 59-year-old woman comes in complaining of cough and shortness a breath that began one week ago. It has gotten worse over the last couple days. Patient states that she used an inhaler to see if that would help however that made her chest pain worse. Actually the patient states that she only gets two chest pain when she uses the albuterol inhaler. However this is not her inhaler. She denies being diagnosed with asthma or COPD. Patient is denying any abdominal pain. Patient states that she had nausea this morning but she states that that has normal for her. Patient's cough is nonproductive. Patient states that when she takes deep breath that makes her cough. Patient denies any fever. Review of systems: All systems were reviewed and are negative except for what is indicated in the history of present illness. Past Medical History: Currently being worked up for polymyalgia rheumatica Past Surgical History: None Social History: Distant history of tobacco use, no alcohol or drug use Medications: Reviewed as documented Nursing Notes Allergies: Reviewed as documented in Nursing Notes Medication Reconciliation Allergies: Coded Allergies: famotidine (Verified Allergy, Severe, "MESSES WITH MY HEART"- ARRYTHMIA QT PROLONG DRUG, 11/22/24) Penicillins (Verified Allergy, Unknown, 11/22/24) Sulfa (Sulfonamide Antibiotics) (Verified Allergy, Unknown, 11/22/24) codeine (Unverified Allergy, Unknown, 11/22/24) doxycycline (Verified Allergy, Unknown, 11/22/24) erythromycin base (Verified Allergy, Unknown, 11/22/24) hydromorphone (Verified Allergy, Unknown, 11/22/24) levofloxacin (Verified Allergy, Unknown, 11/22/24) metronidazole (Verified Allergy, Unknown, 11/22/24) pantoprazole (Verified Allergy, Unknown, DIARRHEA, 11/22/24) triamcinolone (Unverified Allergy, Unknown, HTN, 11/22/24) morphine (Verified Adverse Reaction, Intermediate, RASH, 11/22/24) PT HAS MORPHINE BEFORE. SHE TOLERATES PER amoxicillin (Verified Adverse Reaction, Unknown, N/V, 11/22/24) clavulanic acid (Verified Adverse Reaction, Unknown, N/V, 11/22/24) Scheduled Baclofen (Baclofen), 1 TAB PO Q8H Meclizine HCl (Meclizine HCl), 1 TAB PO TID PRN Methylprednisolone (Medrol Dosepak), 0 PO UD Ondansetron Hcl (Zofran), 1 TAB PO Q6H Peg 3350/Na Sulf,Bicarb,Cl/KCl (Golytely Solution), 0 PO UD Prednisone* (Prednisone*), 1 TAB PO DAILY Tramadol HCl (Tramadol HCl ER), 1 CAP PO DAILY Scheduled PRN ONDANSETRON ODT 4mg tablet (Ondansetron Odt), 1 TAB PO Q6H PRN PRN for nausea/vomiting Miscellaneous Medications Clonazepam (Clonazepam), (Reported) Past Medical History Past Medical History: Headache, Migraine, Allergic Rhinitis, Diverticulitis, Diverticulosis, Hepatitis B, Pancreatitis, *RENAL/*, Hernia, Kidney Stones, UTI, Chronic Back Pain, *INFECTIOUS DZ*, Anxiety Past Surgical History: abdominal surgery, appendectomy, colectomy, , hysterectomy, tonsillectomy, other Other Past Surgical History: Rectocele, hydrocele, bladder sling Alcohol Use: None Drug Use: none Lives with: Family Lives In: Home Occupation: unemployed Review of Systems All Other Systems at this time: Reviewed and Negative ROS Patient denies any other acute symptoms other than above. All other systems are negative Physical Exam Vital Signs: RN Vital Signs have been reviewed: Yes, Temperature: 98.9, Source: Temporal, Heart Rate: 74, Respiratory Rate: 14, BP: 135/75, Pulse Oximetry: 97, Weight: 75.450 Oxygen Flow Rate: 0 Pulse Oximetry Reflects: adequate oxygenation Physical Exam General Appearance: Mild distress HEENT: Normal OP, moist oral mucosa, PERRL, EOMI Neck: supple, normal ROM, trachea midline Pulmonary: No respiratory distress, CTA, BS equal Cardiac: RRR, no murmur, rub or gallop, GI: nondistended, soft, nontender, normal bowel sounds, no guarding, no rebound Extremities: normal ROM, no swelling, non-tender Skin: intact, dry, warm, no rashes Neuro: AAOx3, speech is clear, no focal motor weakness Psych: normal affect, good eye contact, no apparent hallucination, normal speech Progress Results/Orders Results/Orders Orders - LIN BEJARANO MD Chest,Single View (11/22/24 07:54) Monitor (11/22/24 07:54) Saline Lock (11/22/24 07:54) Oxygen (11/22/24 07:54) Hs Troponin I W Calculations (11/22/24 09:54) Hs Troponin I W Calculations (11/22/24 10:54) Svn Treatment (11/22/24 09:42) Lidocaine 4% Topical 4ml (Lidocaine 4% T (11/22/24 09:45) Completed Orders - LIN BEJARANO MD Chest,Single View (11/22/24 07:54) Cbc/Diff (11/22/24 07:54) BMP (11/22/24 07:54) PBNP (11/22/24 07:54) Electrocardiogram (11/22/24 07:54) Hs Troponin I W Calculations (11/22/24 07:54) Ipratropium/Albuterol Nebule (Ipratrop/A (11/22/24 09:45) Vital Signs 11/22/24 11/22/24 07:51 08:19 Temp 98.9 Pulse 74 Resp 22 14 B/P (MAP) 135/75 Pulse Ox 97 O2 Flow Rate 0 Laboratory Tests Test 11/22/24 08:15 White Blood Count 6.3 Red Blood Count 4.29 Hemoglobin 13.3 Hematocrit 38.6 Mean Corpuscular Volume 90.1 Mean Corpuscular Hemoglobin 31.0 Mean Corpuscular Hemoglobin Concent 34.4 Red Cell Distribution Width 13.2 Platelet Count 238 Mean Platelet Volume 7.9 Neutrophils (%) (Auto) 50.8 Lymphocytes (%) (Auto) 42.7 Monocytes (%) (Auto) 5.4 Eosinophils (%) (Auto) 0.7 Basophils (%) (Auto) 0.4 Neutrophils # (Auto) 3.2 Lymphocytes # (Auto) 2.7 Monocytes # (Auto) 0.3 Eosinophils # (Auto) 0.0 Basophils # (Auto) 0.0 CBC Comment Sodium Level 139 Potassium Level 3.7 Chloride Level 105 Carbon Dioxide Level 28.9 Anion Gap 5 L Blood Urea Nitrogen 9 Creatinine 0.81 Estimated GFR/1.73 m2 72 BUN/Creatinine Ratio 11.1 Glucose Level 117 H Calcium Level 8.7 Troponin I High Sensitivity 6 Pro-B-Type Natriuretic Peptide 60 Albumin 3.6 Chemistry Comments Medical Decision Making Findings Differential diagnosis includes but is not limited to: EKG independent interpretation: Performed at 7:59 a.m.. Normal sinus rhythm, heart rate 71, left axis deviation, low voltage, normal ST segments Chest x-ray, single view, indication: Chest pain Independent interpretation: Lungs are clear, normal mediastinum, normal cardiac silhouette. No acute cardiopulmonary process. Laboratory data independent interpretation: CBC: Normal BMP: Normal Troponin: 6 Pro BNP: 60 Emergency department course/medical decision-making: Departure Time of Disposition: 09:50 Disposition: HOME / SELF CARE / HOMELESS Impression: Primary Impression: Cough Qualified Codes: R05.1 - Acute cough Additional Impression: Viral respiratory illness Condition: Stable Discharge Instructions: Cough, Adult, [id number], Viral Illness, Adult Additional Instructions: RECOMMEND YOU FOLLOW UP WITH YOUR PRIMARY CARE DOCTOR THIS WEEK. RETURN TO THE ER IF YOUR SYMPTOMS WORSEN. YOU ARE THOUGHT TO HAVE A VIRAL ILLNESS. Prescriptions Fluticasone Propion/Salmeterol (Fluticasone-Salmeterol 100-50) 100 Mcg-50 Mcg/Dose Blst.w.dev 1 PUFFS INH Q12H for 30 Days, #60 EA 0 Refills Prov: LIN BEJARANO MD 11/22/24 Education Educated: Patient Educated regarding: diagnosis, treatment, need for follow up Signature Scribe Signature: NO SCRIBE Attestation: NO SCRIBE LIN BEJARANO MD Nov 22, 2024 08:51
[2024-11-22 09:03] LABS: CREATININE 0.81 MG/DL (0.40-0.90); PRO BRAIN NATRIURETIC PEPTIDE 60 PG/ML (0-125); TOTAL CARBON DIOXIDE 28.9 MMOL/L (24-32); eCRCL 63 ML/MIN; eGFR 72 ML/MIN
[2024-11-22] MEDS ORDERED: FLUT1BLS12 INH (09:54)
[2024-11-22] MEDS: LIDOcaine 40mg/ml topical solution IH ONE (10:05)
[2024-11-22] MEDS: ipratropium/albuterol 3ml nebule NEB ONE (10:06)
[2024-11-22 10:11] VITALS: PULSE 57; RESP 18; O2SAT 97
[2024-11-22 10:12] VITALS: PULSE 58; RESP 20
[2024-11-22 10:16] VITALS: PULSE 62; RESP 12; TEMP 98.4; O2SAT 96
== END 2024-11-22 10:24 | disposition home or self-care (01) ==
LOC: ER 07:50
DX: B34.9 Viral infection, unspecified (principal); G43.909 Migraine, unspecified, not intractable, without status migrainosus; F41.9 Anxiety disorder, unspecified; Z88.0 Allergy status to penicillin; Z88.2 Allergy status to sulfonamides; Z88.5 Allergy status to narcotic agent; Z88.1 Allergy status to other antibiotic agents; Z88.8 Allergy status to other drugs, medicaments and biological substances; Z90.49 Acquired absence of other specified parts of digestive tract; Z90.710 Acquired absence of both cervix and uterus; Z79.899 Other long term (current) drug therapy; Z87.442 Personal history of urinary calculi; Z56.0 Unemployment, unspecified
CPT/HCPCS: 36415; 71045; 80048; 83880; 84484; 85025; 93005; 99285; J3490

== ENCOUNTER 2025-02-24 06:36 | Emergency (ER) | payer MEDICAID ==
[~2025-02-24] VITALS: Ht 162.6 cm; Wt 77.0 kg
[~2025-02-24 06:36] MED LIST changes: +FLUT1BLS12 INH
[2025-02-24 06:43] VITALS: TEMP 97.1
[2025-02-24 07:19] LABS: MEAN PLATELET VOLUME 7.6 FL (7.4-10.4); RED CELL DISTRIBUTION WIDTH 13.1 % (11.5-14.5)
[2025-02-24 07:33] LABS: CREATININE 0.66 MG/DL (0.40-0.90); TOTAL CARBON DIOXIDE 26.8 MMOL/L (24-32); eCRCL 77 ML/MIN; eGFR > 90 ML/MIN
--- NOTE | 2025-02-24 07:56 | ELECTROCARDIOGRAPH REPORT ---
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 Sam Fay Measurements Intervals [place] Rate: 60 P: 46 [place]: 166 QRS: -18 QRSD: 94 T: 50 QT: 419 QTc: 419 Interpretive Statements Sinus rhythm Borderline left axis deviation Low voltage, precordial leads Electronically Signed On 02-24-2025 19:06:[address] Sam Fay Please click the below link to view image of tracing.
[2025-02-24] MEDS: ondansetron 4mg rapidly disintigrating tab PO ONE (08:23)
--- NOTE | 2025-02-24 08:52 | RADIOLOGY REPORT ---
ULTRASOUND ABDOMEN, LIMITED RIGHT UPPER QUADRANT: REASON FOR EXAM: Gallbladder and kidneys TECHNIQUE: Real-time sector scans in the transverse and longitudinal planes were obtained through the right upper quadrant of the abdomen. FINDINGS: The liver is of normal size and contour. There is hepatopetal flow in the portal vein. There is no intrahepatic biliary ductal dilatation. The common bile duct measures 3 mm. No gallstones are identified. There is trace sludge in the gallbladder. There is no gallbladder wall thickening nor pericholecystic fluid. There is no sonographic Sanders's sign. The pancreas is obscured by bowel gas. The right kidney measures 9.8 cm. No hydronephrosis or nephrolithiasis is identified. There is no evidence of right renal mass or cyst. The visualized portions of the abdominal aorta demonstrate no evidence of aneurysmal dilatation. The visualized inferior vena cava is unremarkable. There is no free fluid identified in the right upper quadrant. IMPRESSION: sonographic appearance of the right upper quadrant.Unremarkable
--- NOTE | 2025-02-24 09:06 | RADIOLOGY REPORT ---
Procedure: DI ACUTE ABDOMEN Exam Date: 02/24/2025 08:24 AM History: Upper abdominal pain Comparison Study: None Technique: AP of the chest AP upright of the abdomen AP supine of the abdomen FINDINGS: No focal evidence of airspace disease. The cardiomediastinal silhouette is within normal limits. No acute osseous lesions. Moderate volume colonic stool. Nonobstructive bowel gas pattern noted. There is no evidence for pneumoperitoneum. No abnormal calcifications noted. IMPRESSION: Moderate volume colonic stool.
--- NOTE | 2025-02-24 09:32 | Physician Documentation ---
History of Present Illness Chief Complaint: Abdominal Pain Stated Complaint: ABD PAIN Time Seen by MD: 07:25 OK to notify your PCP?: Yes Primary Medical Doctor: Derek Vasquez Mode of Arrival: POV HPI 59-year-old female patient with a history of , colectomy for diverticulitis, appendectomy, bladder suspension, chronic pain and depression and gastroesophageal reflux disease came to the emergency room because she has been feeling gassy and epigastric pain for the last 10 days. She says she had a bowel movement this morning and is regular. Her urination is fine. The patient says she has no difficulty breathing and also denies chest pain. Medication Reconciliation Allergies: Coded Allergies: famotidine (Verified Allergy, Severe, "MESSES WITH MY HEART"- ARRYTHMIA QT PROLONG DRUG, 02/24/25) Penicillins (Verified Allergy, Unknown, 02/24/25) Sulfa (Sulfonamide Antibiotics) (Verified Allergy, Unknown, 11/22/24) codeine (Unverified Allergy, Unknown, 02/24/25) doxycycline (Verified Allergy, Unknown, 02/24/25) erythromycin base (Verified Allergy, Unknown, 02/24/25) hydromorphone (Verified Allergy, Unknown, 11/22/24) levofloxacin (Verified Allergy, Unknown, 11/22/24) metronidazole (Verified Allergy, Unknown, 11/22/24) pantoprazole (Verified Allergy, Unknown, DIARRHEA, 11/22/24) triamcinolone (Unverified Allergy, Unknown, HTN, 11/22/24) morphine (Verified Adverse Reaction, Intermediate, RASH, 11/22/24) PT HAS MORPHINE BEFORE. SHE TOLERATES PER amoxicillin (Verified Adverse Reaction, Unknown, N/V, 11/22/24) clavulanic acid (Verified Adverse Reaction, Unknown, N/V, 11/22/24) Scheduled Baclofen (Baclofen), 1 TAB PO Q8H Fluticasone Propion/Salmeterol (Fluticasone-Salmeterol 100-50), 1 PUFFS INH Q12H Meclizine HCl (Meclizine HCl), 1 TAB PO TID PRN Methylprednisolone (Medrol Dosepak), 0 PO UD Ondansetron Hcl (Zofran), 1 TAB PO Q6H Peg 3350/Na Sulf,Bicarb,Cl/KCl (Golytely Solution), 0 PO UD Prednisone* (Prednisone*), 1 TAB PO DAILY Tramadol HCl (Tramadol HCl ER), 1 CAP PO DAILY Scheduled PRN ONDANSETRON ODT 4mg tablet (Ondansetron Odt), 1 TAB PO Q6H PRN PRN for nausea/vomiting Miscellaneous Medications Clonazepam (Clonazepam), (Reported) Past Medical History Past Medical History: Headache, Migraine, Allergic Rhinitis, Diverticulitis, Diverticulosis, Hepatitis B, Pancreatitis, *RENAL/*, Hernia, Kidney Stones, UTI, Chronic Back Pain, *INFECTIOUS DZ*, Anxiety Past Surgical History: abdominal surgery, appendectomy, colectomy, , hysterectomy, tonsillectomy, other Other Past Surgical History: Rectocele, hydrocele, bladder sling Alcohol Use: None Drug Use: none Lives with: Family Lives In: Home Occupation: unemployed Review of Systems ROS As stated above in the HPI, otherwise all systems are reviewed and negative. Physical Exam Vital Signs: Temperature: 97.1, Source: Temporal, Heart Rate: 67, Respiratory Rate: 18, BP: 100/64, Pulse Oximetry: 96, Weight: 77.000 Oxygen Flow Rate: 0 Physical Exam Reviewed vital signs and they are well within normal range. Const: Not in acute cardiopulmonary distress Head: Atraumatic Eyes: Normal Conjunctiva ENT: Normal External Ears, Nose and Mouth. Moist mucous membrane Neck: Full range of motion. No meningismus Resp: Clear to auscultation bilaterally. Normal work of breathing Cardio: Heart rate is 72 per minute. Regular rate and rhythm, no murmurs. Skin well perfused Abd: Soft, mild tenderness in the epigastric area, non-distended. Normal bowel sounds. No rebound or guarding Skin: No petechiae or rashes. Warm and dry Back: No midline or flank tenderness Ext: No cyanosis, or edema Neuro: Awake and alert Psych: Normal Mood and Affect Progress Results/Orders Results/Orders Orders - DEYVI EVANS MD Urinalysis, Cult If Indicated (02/24/25 06:45) Hcg, Ur Ql (02/24/25 06:45) Ultrasound Of Abdomen (02/24/25 07:39) Acute Abdomen (02/24/25 07:39) Completed Orders - DEYVI EVANS MD Cbc/Diff (02/24/25 06:45) BMP (02/24/25 06:45) Lipase (02/24/25 06:45) CMP (02/24/25 06:45) Ultrasound Of Abdomen (02/24/25 07:39) Diphenhydramine Capsule (Benadryl Capsul (02/24/25 07:40) Metoclopramide Tablet (Reglan Tablet) (02/24/25 07:40) Acute Abdomen (02/24/25 07:39) Electrocardiogram (02/24/25 07:39) Ondansetron Disint. Tablet (Zofran Odt T (02/24/25 08:15) Medications Received in ER Medications (Trade) Dose Ordered Sig/Hortencia Route PRN Reason Start Time Stop Time Status Last Admin Dose Admin (Zofran ODT tablet) 4 mg ONCE ONCE PO 02/24/25 08:15 02/24/25 08:16 DC 02/24/25 08:23 4 MG Vital Signs 02/24/25 02/24/25 06:43 08:10 Temp 97.1 Pulse 80 67 Resp 18 18 B/P (MAP) 113/68 100/64 (76) Pulse Ox 97 96 O2 Flow Rate 0 Laboratory Tests Test 02/24/25 07:02 White Blood Count 6.0 Red Blood Count 4.21 Hemoglobin 13.0 Hematocrit 37.9 Mean Corpuscular Volume 90.0 Mean Corpuscular Hemoglobin 30.8 Mean Corpuscular Hemoglobin Concent 34.2 Red Cell Distribution Width 13.1 Platelet Count 264 Mean Platelet Volume 7.6 Neutrophils (%) (Auto) 44.4 Lymphocytes (%) (Auto) 47.7 Monocytes (%) (Auto) 6.0 Eosinophils (%) (Auto) 1.0 Basophils (%) (Auto) 0.9 Neutrophils # (Auto) 2.6 Lymphocytes # (Auto) 2.8 Monocytes # (Auto) 0.4 Eosinophils # (Auto) 0.1 Basophils # (Auto) 0.1 CBC Comment Sodium Level 142 Potassium Level 4.2 Chloride Level 108 H Carbon Dioxide Level 26.8 Anion Gap 7 L Blood Urea Nitrogen 13 Creatinine 0.66 Estimated GFR/1.73 m2 > 90 BUN/Creatinine Ratio 19.7 Glucose Level 86 Calcium Level 8.1 L Total Bilirubin 0.5 Aspartate Amino Transf (AST/SGOT) 16 Alanine Aminotransferase (ALT/SGPT) 21 Alkaline Phosphatase 81 Total Protein 7.0 Albumin 3.4 Globulin 3.6 Albumin/Globulin Ratio 0.9 L Lipase 36 Chemistry Comments Medical Decision Making Additional information obtaine: old records Findings During the physical examination, the findings suggestive of acute life- threatening condition such as JVD, tracheal deviation, acidotic breathing, noisy stridorous breath sounds, pulses paradoxus, muffled heart sounds, unequal breath sounds, abdominal rigidity and rebound tenderness, focal neurological deficits, cool clammy skin, severe hypotension, severe tachycardia or bradycardia are absent. Abdominal examination does not reveal any peritoneal irritation. Ultrasound of the abdomen is negative for cholecystitis hydro nephrosis. Abdominal x-ray does not reveal any obstructive pattern but stool load in the colon. CBC CMP essentially normal. Lipase is essentially normal. I explained to the patient about the findings we came to the shared agreement that she will be going home with follow up with primary care provider. Patient does not have identifiable emergent medical condition that warrants inpatient medical care at this time. The patient is deemed safe for discharge with outpatient follow up. DISCLAIMER Inadvertent spelling and grammatical errors,inadvertent journal clerk errors,syntax errors, grammatical errors, and spelling errors are likely due to EMR/dictation software use and do not reflect on the overall quality of patient care. Note that the electronic time recorded on this note does not necessarily reflect the actual time of the patient encounter. Differential Dx:Considerations: Bowel obstruction, Constipation, Esophagitis, Gastritis/PUD, Gastroenteritis, Pancreatitis, Urolithiasis Departure Disposition: 01 HOME / SELF CARE / HOMELESS Impression: Primary Impression: Gastroesophageal reflux disease Additional Impression: Gastritis Condition: Stable Discharge Instructions: Gastritis, Adult, Gastroesophageal Reflux Disease, Adult, [id number] Additional Instructions: Thank you for coming to our Emergency Department today. Please stay on easily digestible food. Please ask your nurse or provider if you have questions about your care today and do not leave until all your questions have been answered. Please use any medications given as directed and follow-up with your doctor (or the doctor you were referred to) in the next 1-3 days. Your primary care doctor can help to coordinate outpatient specialty care and provide authorization for specialty referral as needed. If you do not have a primary care doctor you may follow up at a [facility]. You may also use motrin and tylenol as needed for fever and/or pain unless instructed otherwise by your provider or nurse. Indications for more urgent follow-up have been discussed, but you may return to the Emergency Department at ANY time for any worrisome or worsening symptoms. [facility] Fac[facility]: [facility]: [facility]: Main [place] Address:[address] [place] [id number] [facility]: [place] Address:[facility] [place] [address] [facility]: Telemedicine Address:[address] [place] [address] [facility] Address:[address] [place] [address] Registration Billing Pharmacy Referrals [facility] Address:[address] [place] [address] Referrals: NO PRIMARY CARE PROVIDER (PCP) Prescriptions Sucralfate (Carafate) 1 Gram/10 Ml Oral.susp 10 ML PO Q6H for 30 Days, #1260 ML 0 Refills before food and bedtime Prov: DEYVI EVANS MD 02/24/25 Esomeprazole Magnesium (Nexium) 40 Mg Capsule.dr 1 CAP PO DAILY for 30 Days, #60 CAP 0 Refills Prov: DEYVI EVANS MD 02/24/25 Ondansetron 8mg ODT (Ondansetron Odt) 8 Mg Tab.rapdis 1 TAB PO Q6H PRN for nausea/vomiting, #24 TAB 0 Refills Prov: DEYVI EVANS MD 02/24/25 Education Educated: Patient Educated regarding: diagnosis, treatment, prognosis, need for follow up Signature Scribe Signature: x Attestation: DEYVI Bautista MD Feb 24, 2025 09:32
[2025-02-24] MEDS ORDERED: SUCR1ORA12 PO (09:38)
[2025-02-24] MEDS ORDERED: ONDA-245 PO (09:38)
[2025-02-24] MEDS ORDERED: ESOM40CA43 PO (09:38)
[2025-02-24 09:59] VITALS: BP 93/59; PULSE 51; RESP 16; O2SAT 97
== END 2025-02-24 10:00 | disposition home or self-care (01) ==
LOC: ER 06:37
DX: K21.9 Gastro-esophageal reflux disease without esophagitis (principal); K29.70 Gastritis, unspecified, without bleeding; G89.29 Other chronic pain; G43.909 Migraine, unspecified, not intractable, without status migrainosus; F41.9 Anxiety disorder, unspecified; Z88.0 Allergy status to penicillin; Z88.2 Allergy status to sulfonamides; Z88.5 Allergy status to narcotic agent; Z88.1 Allergy status to other antibiotic agents; Z88.8 Allergy status to other drugs, medicaments and biological substances; Z90.710 Acquired absence of both cervix and uterus; Z90.49 Acquired absence of other specified parts of digestive tract; Z87.442 Personal history of urinary calculi; Z87.19 Personal history of other diseases of the digestive system; Z79.899 Other long term (current) drug therapy; Z56.0 Unemployment, unspecified
CPT/HCPCS: 36415; 74022; 76700; 80053; 83690; 85025; 93005; 99285

== ENCOUNTER 2025-03-12 04:39 | Emergency (ER) | payer MEDICAID ==
[~2025-03-12] VITALS: Ht 160 cm; Wt 76.7 kg
[~2025-03-12 04:39] MED LIST changes: +ESOM40CA43 PO; +ONDA-245 PO; +SUCR1ORA12 PO
[2025-03-12 05:02] VITALS: BP 103/61; PULSE 74; RESP 17; TEMP 98.2; O2SAT 95
[2025-03-14] MEDS ORDERED: HYDR-3965 PO (13:20)
[2025-03-14] MEDS ORDERED: ESOM20SU PO (13:20)
[2025-03-14] MEDS ORDERED: ALPR0.252 PO (13:20)
[2025-03-14] MEDS ORDERED: ESOM20CA PO (13:26)
== END 2025-03-12 07:28 | disposition left against medical advice (07) ==
LOC: ER 04:39
DX: J02.9 Acute pharyngitis, unspecified (principal); Z53.21 Procedure and treatment not carried out due to patient leaving prior to being seen by health care provider; Z88.1 Allergy status to other antibiotic agents; Z88.5 Allergy status to narcotic agent; Z88.8 Allergy status to other drugs, medicaments and biological substances; Z88.2 Allergy status to sulfonamides
CPT/HCPCS: 99281

== ENCOUNTER 2025-03-15 08:55 | Inpatient (IN) | payer MEDICAID ==
[2025-03-09 14:30] LABS: MEAN PLATELET VOLUME 8.1 FL (7.4-10.4); RED CELL DISTRIBUTION WIDTH 13.1 % (11.5-14.5)
[2025-03-09 14:48] LABS: CREATININE 0.88 MG/DL (0.40-0.90); TOTAL CARBON DIOXIDE 25.3 MMOL/L (24-32); eGFR 65 ML/MIN
[2025-03-15] VITALS (20 sets, daily range): BP systolic 73–116; BP diastolic 45–69; PULSE 57–79; RESP 10–22; TEMP 97.4–99.6; O2SAT 94–98
[~2025-03-15] VITALS: Ht 161.3 cm; Wt 80.0 kg
[~2025-03-15 08:55] MED LIST changes: +ALPR0.252 PO; -CLON-369; +ESOM20CA PO; +HYDR-3965 PO; +HYDROmorphone/PF 0.2 MG/ML SYRINGE IV PRN; +PCA WASTE DOCUMENTATION 1 MG ML MC SCH; +bisacodyl 10mg suppository rectal RC PRN; +magnesium hydroxide 30ml (MOM) UD suspension PO PRN
[2025-03-15] MEDS: ceFAZolin 2gm/dext,iso 50mL 50 ML IV ONE (10:30)
[2025-03-15] MEDS: ondansetron/PF 4mg/2ml inj IV ONE (11:24)
[2025-03-15] MEDS: ringers solution, lacted 1,000 ML IV SCH (11:25)
[2025-03-15] MEDS: VANCOMYCIN/H2O 1.5g/300mL PB 300 ML IV ONE (11:25)
[2025-03-15] MEDS ORDERED: ROPIVAcaine 0.5% (5mg/ml) 30ml vial ONE ×2 (11:28→14:48)
[2025-03-15] MEDS ORDERED: fentaNYL/PF 50MCG/1 ML 2ML syringe ONE (13:04)
[2025-03-15] MEDS ORDERED: MIDAZolam 1mg/ml 10ml vial ONE (13:04)
[2025-03-15] MEDS: ROPIVAcaine 0.5% (5mg/ml) 30ml vial IJ ONE (13:49)
[2025-03-15] MEDS: povidone-iodine 120ml topical solution TP ONE (13:52)
[2025-03-15] MEDS ORDERED: acetaminophen 1,000mg/100ml IV 100 ML IV PRN (14:10)
[2025-03-15] MEDS ORDERED: fentaNYL/PF 50MCG/1 ML 2ML syringe IV PRN ×2 (14:10)
[2025-03-15] MEDS ORDERED: ringers solution, lacted 1,000 ML IV SCH (14:10)
[2025-03-15] MEDS ORDERED: ondansetron/PF 4mg/2ml inj IV PRN (14:10)
[2025-03-15] MEDS ORDERED: hydrALAZINE 20mg/ml inj. IV PRN (14:10)
[2025-03-15] MEDS ORDERED: morphine 4 MG/ML inj SYRINge IV PRN ×2 (14:10→15:44)
[2025-03-15] MEDS ORDERED: labetalol 20mg/4ml (5mg/ml) syringe IV PRN (14:10)
[2025-03-15] MEDS ORDERED: propofol inj 20 ML IV ONE ×3 (14:48)
[2025-03-15] MEDS: oxyCODONE IR 5mg (immed. release) tablet PO PRN (17:36)
--- NOTE | 2025-03-15 17:36 | OPERATIVE REPORT ---
Operative Report Operative Report OPERATIVE REPORT [facility] [address] [facility] [address] [place] [address] Date of service: March 15, 2025 PREOPERATIVE DIAGNOSIS M17..16 Primary osteoarthritis of right knee POSTOPERATIVE DIAGNOSIS M17..16 Primary osteoarthritis of right knee Operation Performed 01738 Total Knee Arthroplasty with this [place]: [place] [address] Computer Assisted Navigation Musculoskeletal - Imageless 43038 Remote therapeutic monitoring; device supply with scheduled recordings every 30 days. Procedure: Computer-assisted, robotically-assisted, right total knee arthroplasty. Surgeon: Dr. Eric Jauregui Steak Tenderizer Machine: Nadia Mayberry PA-C Anesthesiologist: Dr. Ruiz Anesthesia: Spinal anesthetic Indications: 59-year-old female who has chronic osteoarthritis of the right knee with severe pain and limitation of activities despite extensive non- operative management. This patient has had extensive conservative treatment of knee joint arthritis, including rest, external joint support, anti-inflammatory medications, physical therapy, and corticosteroid injection. Physical therapy has been provided, along with a home exercise program prior to making the decision to proceed with surgical treatment. This therapeutic intervention did not provide any substantial relief of symptoms or improvement in function. The patient has been utilizing a cane, set of crutches, or walker, for more than 3 months prior to deciding to proceed with surgery. These interventions have not provided sufficient relief of pain to allow improvement in function. The patient has utilized non-steroidal anti-inflammatory medications for relief of pain over an extended period of time (more than 2 months), and has not experienced sufficient improvement in symptoms. Despite these treatments, this patient has continued difficulties with pain and limited function. They are unable to walk long distances, do vigorous activities, sit or sleep comfortably. Total knee replacement is the next reasonable step in terms of treatment. Indications for underwriting assistant surgeon: A second set of skilled hands with specific orthopedic knowledge of the surgical procedure and orthopedic surgical techniques was necessary to accomplish this operation successfully, and with the least amount of morbidity for the patient. This facilitated operative exposure, manipulation and handling of tissues, placement of any implants, and accomplishment of wound closure. Findings: There was indeed a very severely arthritic knee, with loss of cartilage, exposed bone, and marginal osteophytes. The medial compartment was particularly bad. A 0 varus deformity and 5 degree extension were measured preoperatively. Post operative alignment was 1 degree valgus, and 0 of extension. Complications: None Estimated Blood Loss: 150 mL Implants: A Steph Persona CR total knee system was utilized with a size six narrow right cemented femoral component, and a size C right cemented tibial smart stem. A 12 mm medial congruent right tibial insert was utilized. The [employer] robotically assisted total knee arthroplasty system and computer was utilized. Procedure: The risks, benefits, expected results, and possible complications of the planned procedure had been explained to the patient and informed consent obtained. The patient was taken to the operating room and underwent a spinal anesthetic. The patient was placed in the supine position on the operating table, and the right leg was prepped and draped in the usual fashion. A timeout was taken prior to surgery, confirming patient identification, operative side operative site, planned procedure, administration of pre-operative antibiotics, site marking, and presence of all necessary implants and instruments, x-rays and equipment. A standard anterior, slightly medial approach was performed with a medial parapatellar arthrotomy, and a VMO split. Time was then spent removing excessive synovial tissue and exposing the medial and lateral gutters, as well as moving the anterior sections of the residual menisci. The patella was mobilized to be able to be retracted laterally. This gave exposure of the anterior aspect of the knee. Attention was then directed to the patella. The patella was in excellent condition so we decided not to resurface the patella. Infrared arrays were then placed on the femur and the tibia. Utilizing the [employer] computer system, the hip, knee, and ankle were landmarked in usual fashion. The initial alignment measurements were then taken confirming the above listed deformity. Surgical planning was then carried out on the computer, confirming alignment of components, sizing, and gap balancing. Appropriate soft tissue releases were performed. The robot was then utilized to make the distal femoral cut. The femur was p repared in 4 degrees of flexion and neutral coronal alignment. The distal femoral 4 in 1 block was placed with the robot, and the remaining femoral cuts also performed. The robot was then utilized to cut the proximal tibia in 5 degrees of flexion and neutral coronal alignment. A repeat cut of the tibia was necessary to gain perfect alignment after validation. The computer was then utilized to check longitudinal alignment and soft tissue balance, and this confirmed excellent alignment. Next the dynamic balancing block was utilized to check and adjust soft tissue balancing. The trial implant was sized and properly rotated, and the peg drilling performed. Final check of alignment and balancing was then carried out with trials in place, as well as final removal and cleaning up of soft tissue such as meniscal remnants and osteophytes. Cement was then mixed; 2 batches were utilized, mixed together, for the tibia, the femur and the patella. The cut surface of the tibia was thoroughly lavaged with the pulsating lavage and then dried. The tibia was impacted with the mallet, seating it quite nicely in its proper rotational alignment. Excess cement was removed from around the margins. The femoral cuts were cleaned with a pulsating lavage and then dried with the lap sponges, and the femur was impacted into position with a mallet. Excess cement was removed around the margins of the components as the cement cured. Pressure was held on the femoral component and tibia by placing a spacer and bringing the leg to full extension and applying axial and hyperextension force. Upon complete hardening of all cement, the knee was inspected and excess cement removed. We lavaged the knee to wash out any debris and checked to make sure we had no impinging cement. The trial spacer was replaced and overall alignment checked with computer, ensuring we had full extension of the knee, and appropriate medial and lateral soft tissue balance, as well as flexion and extension balance. The wound was irrigated thoroughly one more time and then dr ied with lap sponges. The final tibial spacer was impacted and locked into the locking mechanism without difficulty. I lavaged the knee to wash out any debris. The tibial trial spacer was replaced and overall alignment checked with computer, ensuring we had full extension of the knee, and appropriate medial and lateral soft tissue balance, as well as flexion and extension balance. The wound was irrigated thoroughly one more time and then dried with lap sponges. The final tibial spacer was impacted and locked into the locking mechanism without difficulty. The retinacular incision was closed with #2 Quill suture, and subcutaneous t issue closed with #2-0 Vicryl suture. Skin was closed with 4-0 Monocryl suture. A sterile dressing was applied, and the patient was returned to the recovery room in satisfactory condition. In the recovery area the remote monitoring station was dispensed to the patient and family. Instructions were given for its usage and gas operations superintendent once the patient got home. We also confirmed the patient had installed the [employer] mobility software, and we ensured that the patient was enrolled in appropriate software platform fr om our end. Remote monitoring was initiated at the preoperative appointment and the devices used for remote monitoring implanted and dispensed today. Electronically Signed by: Eric Jauregui MD Doctor, Orthopedic Surgery Signed on: 03/15/2025 05:36 PM ERIC JAUREGUI MD Mar 15, 2025 17:36
[2025-03-15] MEDS: potassium cl 20mEq in 1/2 NS 1,000 ML IV SCH (18:04)
[2025-03-15] MEDS: ondansetron/PF 4mg/2ml inj IV PRN (18:21)
[2025-03-15] MEDS: metoclopramide 5 mg/ml inj IV ONE (19:35)
[2025-03-15] MEDS: lansoprazole 15mg solutab PO SCH (19:40)
[2025-03-15] MEDS: ceFAZolin 1GM/D5W- ADD-VANTAGE 50 ML IV SCH (19:41)
[2025-03-16] VITALS (7 sets, daily range): BP systolic 101–123; BP diastolic 51–65; PULSE 64–82; RESP 13–19; TEMP 97.4–99.9; O2SAT 94–97
--- NOTE | 2025-03-16 06:56 | DISCHARGE SUMMARY ---
Discharge Summary [facility] ~ Discharge Summary Discharge Date: Mar 16, 2025 *Problems/Diagnosis: (1) S/P total knee arthroplasty Status: Acute Admission Diagnosis: osteoarthritis Discharge Diagnosis\Comment: see above Operations\Procedures see above Consultants: none Complications: none Condition on DC: Stable Discharge Summary: Patient was admitted on date of surgery. Surgery went without complications. Patient had an uneventful overnight stay. Pain well controlled. Dressing clean and dry. Neurovasculary intact. Patient is stable for discharge home pending PT clearance. Total Time Spent on D/C: Up to 30 Minutes Medications Home Meds: Home Medications Active Carafate (Sucralfate) 1 Gram/10 Ml Oral.susp 10 Ml PO Q6H 30 Days before food and bedtime Nexium (Esomeprazole Magnesium) 40 Mg Capsule.dr 1 Cap PO DAILY 30 Days Ondansetron Odt (Ondansetron HCl) 8 Mg Tab.rapdis 1 Tab PO Q6H PRN Fluticasone-Salmeterol 100-50 (Fluticasone Propion/Salmeterol) 100 Mcg-50 Mcg/Dose Blst.w.dev 1 Puffs INH Q12H 30 Days Prednisone* (Prednisone) 5 Mg Tablet 1 Tab PO DAILY 30 Days Tramadol HCl ER (Tramadol HCl) 200 Mg Cpbp.25.75 1 Cap PO DAILY 15 Days Ondansetron Odt (Ondansetron HCl) 4 Mg Tab.rapdis 1 Tab PO Q6H PRN PRN 8 Days Baclofen 20 Mg Tablet 1 Tab PO Q8H Medrol Dosepak (Methylprednisolone) 4 Mg Tab.ds.pk 0 PO UD take 6 Pills Day 1, 5 Pills Day 2, 4 Pills Day 3, 3 Pills Day 4, 2 Pills Day 5 and 1 pill Day 6 Golytely Solution (Peg 3350/Na Sulf,Bicarb,Cl/KCl) 236-22.74G Soln.recon 0 PO UD Take according to instructions on printed sheet Meclizine HCl 25 Mg Tablet 1 Tab PO TID PRN 10 Days Zofran (Ondansetron Hcl) 4 Mg Tablet 1 Tab PO Q6H Reported Nexium* (Esomeprazole Magnesium) 20 Mg Capsule 1 Cap PO BID [place] 5/325 MG (Acetaminophen/Hydrocodone Bitart) 5 Mg/325 Mg Tablet 0.25 Tab PO Q4HPRN PRN 3 Days Xanax (Alprazolam) 0.25 Mg Tablet 1 Tab PO Q12H PRN PRN Supervising Physician Supervising Physician: Dr. Eric Jauregui Problem Qualifiers (1) S/P total knee arthroplasty: Qualified Codes: Z96.651 - Presence of right artificial knee joint [facility] Mar 16, 2025 06:56
[2025-03-16] MEDS: vancomycin/NS 1 GM ADD-VANTAGE 250 ML IV SCH (07:21)
[2025-03-16 07:31] LABS: MEAN PLATELET VOLUME 7.7 FL (7.4-10.4); RED CELL DISTRIBUTION WIDTH 13.2 % (11.5-14.5)
[2025-03-16 08:15] LABS: TOTAL CARBON DIOXIDE 26.4 MMOL/L (24-32)
[2025-03-16] MEDS: ondansetron 4mg rapidly disintigrating tab PO ONE (15:37)
[2025-03-16] MEDS: ALPRAZolam 0.25mg tablet PO PRN (20:51)
[2025-03-17 06:00] VITALS: BP 115/54; PULSE 82; RESP 13; TEMP 98; O2SAT 94
[2025-03-17 06:20] LABS: MEAN PLATELET VOLUME 7.5 FL (7.4-10.4); RED CELL DISTRIBUTION WIDTH 13.0 % (11.5-14.5)
[2025-03-17 08:00] VITALS: RESP 16; O2SAT 94
[2025-03-17 08:48] VITALS: RESP 18
[2025-03-17] MEDS: oxyCODONE IR 5mg (immed. release) tablet PO PRN (08:48)
== END 2025-03-17 10:35 | disposition home health service (06) | DRG 326 ==
LOC: PAS IN 08:55 → ORTHO 4S 15:18 → PAS IN 15:45 → ORTHO 4S 16:58
PROVIDERS: ADMIT Orthopaedic Surgery; ATTEND Orthopaedic Surgery
PROC: 8E0YXBZ Computer Assisted Procedure of Lower Extremity (ICD-10-PCS; 2025-03-15)
PROC: 8E0Y0CZ Robotic Assisted Procedure of Lower Extremity, Open Approach (ICD-10-PCS; 2025-03-15)
PROC: 0SRC0J9 Replacement of Right Knee Joint with Synthetic Substitute, Cemented, Open Approach (ICD-10-PCS; principal; 2025-03-15 12:56)
DX: M17.11 Unilateral primary osteoarthritis, right knee (principal); Z88.0 Allergy status to penicillin; Z88.1 Allergy status to other antibiotic agents; Z88.5 Allergy status to narcotic agent; Z88.2 Allergy status to sulfonamides
CPT/HCPCS: 36415; 80051; 80053; 82948; 85025; 87081; 97110; 97116; 97162; 97530; A4215; A6449; A7000; C1713; C1776; C9250; G0378; J0690; J0780; J2250; J2405; J2704; J2795; J3010; J3373; J3375; J3480; J7120

== ENCOUNTER 2025-03-24 12:40 | Emergency (ER) | payer MEDICAID ==
[~2025-03-24] VITALS: Ht 160 cm; Wt 79.4 kg
[~2025-03-24 12:40] MED LIST changes: -HYDROmorphone/PF 0.2 MG/ML SYRINGE IV PRN; -PCA WASTE DOCUMENTATION 1 MG ML MC SCH; -bisacodyl 10mg suppository rectal RC PRN; -magnesium hydroxide 30ml (MOM) UD suspension PO PRN
[2025-03-24 12:57] VITALS: TEMP 98.6
--- NOTE | 2025-03-24 13:55 | Physician Documentation ---
History of Present Illness ~ Chief Complaint: Leg Pain Stated Complaint: KNEE PAIN Time Seen by MD: 13:49 Primary Medical Doctor: Derek Vasquez HPI 59-year-old female presents to the ED postoperatively after having surgery on her right lower extremity via Dr. Jauregui the orthopedic surgeon on March 15. Concerned that she has a increased pain and swelling in the region of her operation and feels she may have a blood clot. Patient denies having any history of blood clot. Day of Onset: Mar 24, 2025 Tetanus witin 5 years: No Medication Reconciliation Allergies: Coded Allergies: amylase (porcine) (Verified Allergy, Severe, PANCREATIC PAIN; JOINTS AND MUSCLES WEAK, 03/14/25) cefdinir (Verified Allergy, Severe, CRITICAL; LEG PAIN AND ACHES, 03/14/25) famotidine (Verified Allergy, Severe, "MESSES WITH MY HEART"- ARRYTHMIA QT PROLONG DRUG, 02/24/25) lipase (porcine) (Verified Allergy, Severe, PANCREATIC PAIN; JOINTS AND MUSCLES WEAK, 03/14/25) protease (porcine) (Verified Allergy, Severe, PANCREATIC PAIN; JOINTS AND MUSCLES WEAK, 03/14/25) Sulfa (Sulfonamide Antibiotics) (Verified Allergy, Intermediate, N/V, 03/14/25) ciprofloxacin (Verified Allergy, Intermediate, N/V, 03/14/25) clindamycin (Verified Allergy, Intermediate, N/V, 03/14/25) codeine (Verified Allergy, Intermediate, N/V, 03/14/25) doxycycline (Verified Allergy, Intermediate, ITCHING, 03/14/25) ethyl alcohol (Verified Allergy, Intermediate, RASH, 03/14/25) hydromorphone (Verified Allergy, Intermediate, NAUSEA, 03/14/25) erythromycin base (Verified Allergy, Mild, RASH, 03/14/25) Penicillins (Verified Allergy, Unknown, 02/24/25) dextrose (Verified Allergy, Unknown, 03/14/25) metronidazole (Verified Allergy, Unknown, N/V, 03/14/25) pantoprazole (Verified Allergy, Unknown, DIARRHEA, 11/22/24) sodium chloride (Verified Allergy, Unknown, 03/14/25) triamcinolone (Unverified Allergy, Unknown, HTN, 11/22/24) levofloxacin (Verified Adverse Reaction, Intermediate, NAUSEA, 03/14/25) morphine (Verified Adverse Reaction, Intermediate, RASH, 11/22/24) PT HAS MORPHINE BEFORE. SHE TOLERATES PER paroxetine (Verified Adverse Reaction, Intermediate, HEADACHE, 03/14/25) amoxicillin (Verified Adverse Reaction, Unknown, N/V, 11/22/24) clavulanic acid (Verified Adverse Reaction, Unknown, N/V, 11/22/24) Scheduled Baclofen (Baclofen), 1 TAB PO Q8H Esomeprazole Mag Trihydrate* (Nexium*), 1 CAP PO BID, (Reported) Esomeprazole Magnesium (Nexium), 1 CAP PO DAILY Fluticasone Propion/Salmeterol (Fluticasone-Salmeterol 100-50), 1 PUFFS INH Q12H Meclizine HCl (Meclizine HCl), 1 TAB PO TID PRN Methylprednisolone (Medrol Dosepak), 0 PO UD Ondansetron Hcl (Zofran), 1 TAB PO Q6H Peg 3350/Na Sulf,Bicarb,Cl/KCl (Golytely Solution), 0 PO UD Prednisone* (Prednisone*), 1 TAB PO DAILY Sucralfate (Carafate), 10 ML PO Q6H Tramadol HCl (Tramadol HCl ER), 1 CAP PO DAILY Scheduled PRN Alprazolam (Xanax), 1 TAB PO Q12H PRN PRN for anxiety, (Reported) Hydrocodone Bit/Acetaminophen 5/325 MG ([place] 5/325 MG), 0.25 TAB PO Q4HPRN PRN for pain, (Reported) ONDANSETRON ODT 4mg tablet (Ondansetron Odt), 1 TAB PO Q6H PRN PRN for nausea/vomiting Ondansetron 8mg ODT (Ondansetron Odt), 1 TAB PO Q6H PRN for nausea/vomiting Past Medical History Past Medical History: Headache, Migraine, Allergic Rhinitis, Diverticulitis, Diverticulosis, Hepatitis B, Pancreatitis, *RENAL/*, Hernia, Kidney Stones, UTI, Chronic Back Pain, *INFECTIOUS DZ*, Anxiety Past Surgical History: abdominal surgery, appendectomy, colectomy, , hysterectomy, tonsillectomy, other Other Past Surgical History: Rectocele, hydrocele, bladder sling Alcohol Use: None Drug Use: none Lives with: Family Lives In: Home Occupation: unemployed Physical Exam Vital Signs: Temperature: 98.6, Source: Oral, Heart Rate: 67, Respiratory Rate: 16, BP: 112/67, Pulse Oximetry: 98, Weight: 79.400 Oxygen Flow Rate: 0 Physical Exam General: Alert, no apparent distress. Extremities: Normal range of motion, no deformity. Lower extremities notable for postoperative on the replacement with some erythema and swelling around the surgical site. no Evidence discharge and surgical dressing appears to be well in place without any notable dehiscence, swelling in the right lower foot with palpable pulses Neurologic: Oriented x4. Psychiatric: Normal mood and affect. Skin: Normal color, warm and dry. No edema, no ecchymosis. Progress Results/Orders Results/Orders Orders - ARIK RODRIGUEZ INSTRUCTIONAL DESIGN MANAGER Vl Venous (03/24/25 ) Completed Orders - ARIK RODRIGUEZ INSTRUCTIONAL DESIGN MANAGER Cbc/Diff (03/24/25 14:08) LA (03/24/25 14:08) Hydrocodone/Apap 10/325 ([place] 10/325mg (03/24/25 15:00) Vl Venous (03/24/25 ) Medications Received in ER Medications (Trade) Dose Ordered Sig/Hortencia Route PRN Reason Start Time Stop Time Status Last Admin Dose Admin ([place] 10/325mg tab) 1 tab ONCE ONCE PO 03/24/25 15:00 03/24/25 15:04 DC 03/24/25 15:09 1 TAB Vital Signs 03/24/25 03/24/25 03/24/25 03/24/25 12:47 12:57 12:57 15:09 Temp 98.6 98.6 Pulse 67 67 Resp 16 19 16 18 B/P (MAP) 118/67 112/67 (82) Pulse Ox 98 98 O2 Flow Rate 0 0 03/24/25 03/24/25 03/24/25 15:10 16:27 16:52 Pulse 72 69 Resp 16 16 20 B/P (MAP) 130/69 (89) 115/70 Pulse Ox 98 98 O2 Flow Rate 0 Laboratory Tests Test 03/24/25 14:18 White Blood Count 6.4 Red Blood Count 3.61 L Hemoglobin 11.0 L Hematocrit 33.2 L Mean Corpuscular Volume 92.0 Mean Corpuscular Hemoglobin 30.4 Mean Corpuscular Hemoglobin Concent 33.0 Red Cell Distribution Width 13.2 Platelet Count 367 Mean Platelet Volume 7.0 L Neutrophils (%) (Auto) 51.6 Lymphocytes (%) (Auto) 38.5 Monocytes (%) (Auto) 7.0 Eosinophils (%) (Auto) 2.4 Basophils (%) (Auto) 0.5 Neutrophils # (Auto) 3.3 Lymphocytes # (Auto) 2.5 Monocytes # (Auto) 0.5 Eosinophils # (Auto) 0.2 Basophils # (Auto) 0.0 CBC Comment Lactic Acid Level 1.1 Medical Decision Making Additional information obtaine: old records Findings Consulted with the on-call orthopedist and explain the situation to Dr. Massey who was not the original surgeon. He agrees that patient presents with a typical inflammation secondary to surgery. Laboratory valuess did not indicate any signs of infection as I expected. Going to discharge the patient for further evaluation by Dr. Bustamante the operating surgeon US indicated there was no signs of blood clots or changes in flow General Diff Dx:Considerations: Unlikely: Abrasion, Contusion, Fracture, Hematoma, Laceration, Malunion, Neurovascular injury, Open fracture, Sprain, Ulcer, Other Knee Diff Dx:Considerations: Include: Abrasion, Arthritis, Contusion, DJD, Fracture-femur, Fracture-fibula, Fracture-patella, Fracture-tibia, Gout, Hematoma, Laceration, Meniscus injury, Neurovascular injury, Open fracture, Rheumatoid arthritis, Septic, Sprain, Sprain-MCL, Sprain-LCL, Sprain-ACL, Sprain-PCL, Other Ankle Diff Dx:Considerations: Unlikely: Abrasion, Arthritis, Contusion, DJD, Fracture-metatarsal, Fracture-fibula, Fracture-tarsal, Fracture-tibia, Gout, Hematoma, Laceration, Malunion, Neurovascular injury, Nonunion, Open fracture, Osteomyelitis, Rheumatoid arthritis, Sprain, Septic, Ulcer, Other Foot Diff Dx:Considerations: Unlikely: Abrasion, Arthritis, Cellulitis, Co ntusion, Dislocation, DJD, Fracture-metatarsal, Fracture-phalynx, Fracture- tarsal, Gout, Hematoma, Ingrown toenail, Laceration, Malunion, Neurovascular injury, Open fracture, Paronychia, Puncture, Rheumatoid, Sprain, Septic, Subungual hematoma, Ulcer, Other Toe Diff Dx:Considerations: Unlikely: Abrasion, Cellulitis, Contusion, Dislocation, Felon, Fracture, Hematoma, Laceration, Neurovascular injury, Open fracture, Paronychia, Subungual hematoma, Other Departure Disposition: 01 HOME / SELF CARE / HOMELESS Impression: Primary Impression: S/P total knee arthroplasty Condition: Improved Discharge Instructions: Wound Care, Adult Referrals: NO PRIMARY CARE PROVIDER (PCP) Signature Scribe Signature: e Attestation: Scribed for Arik Rodriguez [employer] Developer by Arik Landers NP . 03/24/25 15:14 ARIK RODRIGUEZ NP Mar 24, 2025 13:55
[2025-03-24 14:28] LABS: MEAN PLATELET VOLUME 7.0 FL (7.4-10.4); RED CELL DISTRIBUTION WIDTH 13.2 % (11.5-14.5)
[2025-03-24] MEDS: HYDROcodone/acetaminophen 10/325mg tab PO ONE (15:09)
[2025-03-24 16:52] VITALS: BP 115/70; PULSE 69; RESP 20; O2SAT 98
--- NOTE | 2025-03-24 16:58 | VASCULAR REPORT ---
CLINICAL HISTORY: Right lower extremity pain and swelling TECHNIQUE: Color and duplex doppler imaging of the right lower extremity veins was performed. Vessel compression if possible was also performed. WID: COMPARISON: VL VENOUS on DOS: 10/12/20 FINDINGS: Contralateral left common femoral vein: Normal flow and phasicity. Right common femoral vein: Normal compressibility and flow. Right femoral vein: Normal compressibility and flow. Right popliteal vein: Normal compressibility and flow. Proximal calf veins are normally compressible. IMPRESSION: 1. NO SONOGRAPHIC EVIDENCE FOR DEEP VENOUS THROMBOSIS IN THE RIGHT LOWER EXTREMITY VEINS.
== END 2025-03-24 16:56 | disposition home or self-care (01) ==
LOC: ER 12:41
DX: M25.561 Pain in right knee (principal); M79.89 Other specified soft tissue disorders; G89.29 Other chronic pain; G43.909 Migraine, unspecified, not intractable, without status migrainosus; Z87.19 Personal history of other diseases of the digestive system; Z87.440 Personal history of urinary (tract) infections; Z87.442 Personal history of urinary calculi; Z88.1 Allergy status to other antibiotic agents; Z88.8 Allergy status to other drugs, medicaments and biological substances; Z88.2 Allergy status to sulfonamides; Z88.5 Allergy status to narcotic agent; Z88.0 Allergy status to penicillin; Z90.49 Acquired absence of other specified parts of digestive tract; Z90.710 Acquired absence of both cervix and uterus; Z79.899 Other long term (current) drug therapy; Z56.0 Unemployment, unspecified; Z96.651 Presence of right artificial knee joint
CPT/HCPCS: 36415; 83605; 85025; 93971; 99284